=== PATIENT | female | born 1950 | race Caucasian/White ===

== ENCOUNTER → 2021-02-04 09:30 | Outpatient (BNVA) | payer MEDICARE, SELFPAY | PROVIDERS: Visit Provider Family Medicine | DX: G25.81 Restless legs syndrome (principal); J44.9 Chronic obstructive pulmonary disease, unspecified; I10 Essential (primary) hypertension; E16.2 Hypoglycemia, unspecified; R45.0 Nervousness; Z13.1 Encounter for screening for diabetes mellitus; Z83.3 Family history of diabetes mellitus; Z98.84 Bariatric surgery status; E78.5 Hyperlipidemia, unspecified; E03.9 Hypothyroidism, unspecified; K21.9 Gastro-esophageal reflux disease without esophagitis; F32.9 Major depressive disorder, single episode, unspecified; R00.0 Tachycardia, unspecified; M54.12 Radiculopathy, cervical region; Z91.09 Other allergy status, other than to drugs and biological substances; I50.9 Heart failure, unspecified | CPT/HCPCS: 80053; 80061; 83036; 84443; 85025 ==

== ENCOUNTER → 2021-04-07 09:48 | Outpatient (BNVA) | payer MEDICARE, SELFPAY | PROVIDERS: PCP Family Medicine; Referring Provider Family Medicine; Visit Provider Anesthesiology Pain Medicine | DX: G89.29 Other chronic pain (principal); M54.9 Dorsalgia, unspecified; M54.12 Radiculopathy, cervical region; M51.36 Other intervertebral disc degeneration, lumbar region; M47.816 Spondylosis without myelopathy or radiculopathy, lumbar region; M75.111 Incomplete rotator cuff tear or rupture of right shoulder, not specified as traumatic; Z79.891 Long term (current) use of opiate analgesic | CPT/HCPCS: 99204 ==

== ENCOUNTER → 2021-09-03 10:08 | Outpatient (BNVA) | payer MEDICARE, SELFPAY | PROVIDERS: PCP Family Medicine; Visit Provider Anesthesiology Pain Medicine | DX: M75.111 Incomplete rotator cuff tear or rupture of right shoulder, not specified as traumatic (principal); M75.01 Adhesive capsulitis of right shoulder; M54.12 Radiculopathy, cervical region; M51.36 Other intervertebral disc degeneration, lumbar region; M47.816 Spondylosis without myelopathy or radiculopathy, lumbar region | CPT/HCPCS: 99214 ==

== ENCOUNTER → 2022-01-11 08:54 | Outpatient (BNVA) | payer MEDICARE, MEDICAID, SELFPAY | PROVIDERS: PCP Family Medicine; Visit Provider Anesthesiology Pain Medicine | DX: M51.36 Other intervertebral disc degeneration, lumbar region (principal); M47.816 Spondylosis without myelopathy or radiculopathy, lumbar region; M54.12 Radiculopathy, cervical region; M75.111 Incomplete rotator cuff tear or rupture of right shoulder, not specified as traumatic; M75.01 Adhesive capsulitis of right shoulder | CPT/HCPCS: 99214 ==

== ENCOUNTER → 2022-01-21 12:53 | Outpatient (BNVA) | payer MEDICARE, MEDICAID, SELFPAY | PROVIDERS: PCP Student in an Organized Health Care Education/Training Program; Visit Provider Anesthesiology Pain Medicine | DX: M54.16 Radiculopathy, lumbar region (principal) | CPT/HCPCS: 64483; 64484; J1100; J3490 ==

== ENCOUNTER → 2022-02-08 09:23 | Outpatient (BNVA) | payer MEDICARE, MEDICAID, SELFPAY | PROVIDERS: PCP Student in an Organized Health Care Education/Training Program; Visit Provider Anesthesiology Pain Medicine | DX: M54.12 Radiculopathy, cervical region (principal); M51.36 Other intervertebral disc degeneration, lumbar region; M47.816 Spondylosis without myelopathy or radiculopathy, lumbar region; M75.111 Incomplete rotator cuff tear or rupture of right shoulder, not specified as traumatic; M75.00 Adhesive capsulitis of unspecified shoulder | CPT/HCPCS: 99214 ==

== ENCOUNTER → 2022-02-17 12:50 | Outpatient (BNVA) | payer MEDICARE, MEDICAID, SELFPAY | PROVIDERS: PCP Student in an Organized Health Care Education/Training Program; Visit Provider Anesthesiology Pain Medicine | DX: M54.2 Cervicalgia (principal); M25.561 Pain in right knee; M54.16 Radiculopathy, lumbar region | CPT/HCPCS: 62323; J1040; J3490 ==

== ENCOUNTER → 2022-03-03 11:21 | Outpatient (BNVA) | payer MEDICARE, MEDICAID, SELFPAY | PROVIDERS: PCP Student in an Organized Health Care Education/Training Program; Visit Provider Anesthesiology Pain Medicine | DX: M51.36 Other intervertebral disc degeneration, lumbar region (principal); M47.816 Spondylosis without myelopathy or radiculopathy, lumbar region; M54.12 Radiculopathy, cervical region; M75.00 Adhesive capsulitis of unspecified shoulder; M75.111 Incomplete rotator cuff tear or rupture of right shoulder, not specified as traumatic | CPT/HCPCS: 99212; 99213 ==

== ENCOUNTER → 2022-04-21 13:44 | Outpatient (BNVA) | payer MEDICARE, MEDICAID, SELFPAY | PROVIDERS: PCP Student in an Organized Health Care Education/Training Program; Visit Provider Otolaryngology | DX: H70.12 Chronic mastoiditis, left ear (principal); H95.192 Other disorders following mastoidectomy, left ear; H74.01 Tympanosclerosis, right ear | CPT/HCPCS: 69220; 99203 ==

== ENCOUNTER → 2022-05-03 11:11 | Outpatient (BNVA) | payer MEDICARE, MEDICAID, SELFPAY | PROVIDERS: PCP Student in an Organized Health Care Education/Training Program; Referring Provider Anesthesiology Pain Medicine; Visit Provider Specialist | DX: M17.12 Unilateral primary osteoarthritis, left knee (principal); M21.062 Valgus deformity, not elsewhere classified, left knee | CPT/HCPCS: 73560; 73565; 99203 ==

== ENCOUNTER → 2022-06-09 10:38 | Outpatient (BNVA) | payer MEDICARE, MEDICAID, SELFPAY | PROVIDERS: PCP Student in an Organized Health Care Education/Training Program; Visit Provider Anesthesiology Pain Medicine | DX: M75.01 Adhesive capsulitis of right shoulder (principal); M54.12 Radiculopathy, cervical region; M51.36 Other intervertebral disc degeneration, lumbar region; M75.111 Incomplete rotator cuff tear or rupture of right shoulder, not specified as traumatic; M47.816 Spondylosis without myelopathy or radiculopathy, lumbar region | CPT/HCPCS: 72040; 99214 ==

== ENCOUNTER → 2022-06-15 09:34 | Outpatient (BNVA) | payer MEDICARE, MEDICAID, SELFPAY | PROVIDERS: PCP Student in an Organized Health Care Education/Training Program; Visit Provider Anesthesiology Pain Medicine | DX: M79.18 Myalgia, other site (principal); M54.12 Radiculopathy, cervical region; M51.36 Other intervertebral disc degeneration, lumbar region; M47.816 Spondylosis without myelopathy or radiculopathy, lumbar region; M75.111 Incomplete rotator cuff tear or rupture of right shoulder, not specified as traumatic; M75.00 Adhesive capsulitis of unspecified shoulder | CPT/HCPCS: 20553; 99214 ==

== ENCOUNTER 2022-06-29 07:46 | Outpatient (CLI) | payer MEDICARE, MEDICAID, SELFPAY ==
--- NOTE | 2022-06-29 08:00 | MR_ITS ---
WS: [id number] MRI CERVICAL SPINE NONCONTRAST HISTORY: M54.12 - Radiculopathy, cervical region COMPARISON: No similar studies. Technique: Multiplanar, multisequence noncontrast imaging of the cervical spine. Straightening and slight reversal normal cervical lordosis. No acute or chronic fracture. Disc spaces are moderately narrowed throughout the cervical spine with hypertrophic osteophytes and f acet arthritis at multiple levels. There is a small amount of marrow edema in the superior and inferi or articular facets of C7. Craniocervical junction, C1 and C2 relationship, odontoid process and soft tissues are normal. Empty sella turcica. C2-C3: Normal. C3-C4: Mild osteophytic ridging. Osteophytes encroach into the RIGHT foramen causing mild foraminal n arrowing. No high-grade stenosis. Mild facet arthritis. C4-C5: Diffuse annular disc bulging with small disc osteophyte complexes and the neural foramina. The re is a central disc contacting the ventral cord but not displacing the cord. Mild central with moder ate bilateral foraminal stenosis and mild facet arthritis. C5-C6: Diffuse moderate osteophytic ridging with encroachment upon the ventral thecal sac. Encroachme nt centrally and into the neural foramina predominantly due to osteophytes. Mild central with moderat e bilateral foraminal stenosis. Mild facet arthritis. C6-C7: Diffuse annular disc bulging. Disc osteophyte disease with encroachment upon the ventral theca l sac and foramina. Mild central and bilateral foraminal stenosis. Mild bilateral facet arthritis. Th ere is greater edema and increased T2 signal on the LEFT surrounding the facet joint. C7-T1: Normal. Sagittal sequence at T1-2 and T2-3 demonstrates small RIGHT foraminal disc protrusions. MR/MR cervical spin wo con* [id number] IMPRESSION: 1. Multilevel moderate spondylitic changes throughout the cervical spine. Disc and osteophyte disease and facet arthritis. 2. Mild RIGHT foraminal narrowing due to osteophyte at C3-4. 3. Mild central with moderate bilateral foraminal stenosis and facet arthritis at C4-5 and C5-6 due to disc and osteophyte disease. 4. Mild central and bilateral foraminal stenosis at C6-7. 5. Edema involving the articular facets of C7, greatest on the LEFT. Additiona l edema surrounding the LEFT facet joint and interspinous muscles. May represen t some instability or be secondary to facet joint arthritis or synovitis.
== END 2022-06-29 07:47 | disposition home or self-care (01) ==
PROVIDERS: PCP Student in an Organized Health Care Education/Training Program; Visit Provider Anesthesiology Pain Medicine
DX: M54.12 Radiculopathy, cervical region (principal); M47.812 Spondylosis without myelopathy or radiculopathy, cervical region; M25.78 Osteophyte, vertebrae
CPT/HCPCS: 72141

== ENCOUNTER → 2022-07-26 09:50 | Outpatient (BNVA) | payer MEDICARE, MEDICAID, SELFPAY | PROVIDERS: PCP Student in an Organized Health Care Education/Training Program; Visit Provider Anesthesiology Pain Medicine | DX: G89.29 Other chronic pain (principal); M54.12 Radiculopathy, cervical region; M51.36 Other intervertebral disc degeneration, lumbar region; M47.816 Spondylosis without myelopathy or radiculopathy, lumbar region; M75.111 Incomplete rotator cuff tear or rupture of right shoulder, not specified as traumatic; M75.01 Adhesive capsulitis of right shoulder; I50.9 Heart failure, unspecified | CPT/HCPCS: 99214; 99215 ==

== ENCOUNTER → 2022-08-16 12:32 | Outpatient (BNVA) | payer MEDICARE, MEDICAID, SELFPAY | PROVIDERS: PCP Student in an Organized Health Care Education/Training Program; Visit Provider Anesthesiology Pain Medicine | DX: G89.29 Other chronic pain (principal); M54.12 Radiculopathy, cervical region; M47.812 Spondylosis without myelopathy or radiculopathy, cervical region | CPT/HCPCS: 64490; 64491; 64492 ==

== ENCOUNTER → 2022-08-30 09:01 | Outpatient (BNVA) | payer MEDICARE, MEDICAID, SELFPAY | PROVIDERS: PCP Student in an Organized Health Care Education/Training Program; Visit Provider Anesthesiology Pain Medicine | DX: G89.29 Other chronic pain (principal); M54.12 Radiculopathy, cervical region; M51.36 Other intervertebral disc degeneration, lumbar region; M47.816 Spondylosis without myelopathy or radiculopathy, lumbar region; M75.111 Incomplete rotator cuff tear or rupture of right shoulder, not specified as traumatic; M75.00 Adhesive capsulitis of unspecified shoulder; R07.9 Chest pain, unspecified; I50.9 Heart failure, unspecified | CPT/HCPCS: 99214 ==

== ENCOUNTER → 2022-10-06 09:43 | Outpatient (BNVA) | payer MEDICARE, MEDICAID, SELFPAY | PROVIDERS: PCP Registered Nurse; Visit Provider Otolaryngology | DX: H95.192 Other disorders following mastoidectomy, left ear (principal); K21.9 Gastro-esophageal reflux disease without esophagitis; R07.9 Chest pain, unspecified; R00.0 Tachycardia, unspecified; I10 Essential (primary) hypertension; E78.2 Mixed hyperlipidemia; E03.9 Hypothyroidism, unspecified | CPT/HCPCS: 69220; 99204; 99213 ==

== ENCOUNTER 2022-11-05 12:50 | Outpatient (CLI) | payer MEDICARE, MEDICAID, SELFPAY ==
--- NOTE | 2022-11-05 13:00 | USCV_ITS ---
Selena Salgado Age: 72 Gender: F : 1950 Exam Date: 11/05/2022 14:09 Ordering Phys: Candi Avina MD ([email or web address]) Technologist: RICK [place] [facility] [place]: CHEST PAIN, SHORTNESS OF BREATH BP: 116 / 70 HR: 70 Rhythm: Sinus Technical Quality: Adequate MEASUREMENTS (Male / Female) Normal Values 2D ECHO LVOT Diameter 2.0 cm LV Ejection Fraction MOD 2C 66.1 % LV Ejection Fraction 2C AL 69.3 % LA Diameter 4.0 cm LA Width 2.4 cm LA Height 5.3 cm RA Width 3.3 cm RA Height 4.7 cm Aorta at Sinotubular Diameter 2.2 cm IVC Diameter 1.7 cm M-MODE Aortic Annulus Diameter 2.7 cm LA Ao Ratio MM 1.4 MV E Point Septal Separation 0.3 cm DOPPLER AV Peak Velocity 130.0 cm/s LVOT Peak Velocity 83.0 cm/s AV Area Cont Eq vti 2.1 cm squared AV Area Cont Eq pk 2.0 cm squared MV Peak Velocity 110.0 cm/s MV Area PHT 5.0 cm squared Mitral E to A Ratio 1.3 MV E' Velocity 54.5 cm/s Mitral E to MV E' Ratio 12.4 Mitral E to LV E' Lateral Ratio 14.8 Mitral E to LV E' Septal Ratio 10.9 TR Peak Velocity 255.0 cm/s TR Peak Gradient 26.0 mmHg TR Mean Velocity 217.4 cm/s TR Mean Gradient 19.9 mmHg TR Velocity Time Integral 107.8 cm TV Peak E Velocity 55.0 cm/s Right Atrial Pressure 3.0 mmHg Pulmonary Artery Systolic Pressu 29.0 mmHg PV Peak Velocity 92.0 cm/s RV Acceleration Time 0.1 s RV Ejection Time 0.4 s RV AcT/ET 0.4 FINDINGS Left Ventricle Normal left ventricular size, systolic function and wall thickness, with no regional wall motion abnormalities. Left ventricular ejection fraction is estimated at 65%. Normal diastolic function. Right Ventricle Normal right ventricular size and systolic function. Right ventricular systolic pressure 29 mmHg. Right Atrium Normal right atrial size. Left Atrium Normal left atrial size. Mitral Valve Structurally normal mitral valve. No mitral valve stenosis. Trace mitral valve regurgitation. Aortic Valve Structurally normal trileaflet aortic valve. No aortic valve stenosis. No aortic valve regurgitation. Tricuspid Valve Structurally normal tricuspid valve. No tricuspid valve stenosis. Trace tricuspid valve regurgitation. Pulmonic Valve Pulmonic valve not well visualized. Pericardium No pericardial effusion. Aorta Normal size aortic root and proximal ascending aorta. IVC Normal IVC dimension with >50% respiratory change of the inferior vena cava. CONCLUSIONS 1. Normal left ventricular size, systolic function and wall thickness, with no regional wall motion abnormalities. Left ventricular ejection fraction is estimated at 65%. Normal diastolic function. 2. No significant valvular abnormality. 3. No prior similar studies to compare. Candi Avina MD (Electronically Signed) Final Date: 16 November 2022 08:33 S
== END 2022-11-05 12:51 | disposition home or self-care (01) ==
LOC: RAD 12:54
PROVIDERS: PCP Registered Nurse; Visit Provider Internal Medicine Cardiovascular Disease
DX: R06.02 Shortness of breath (principal); I50.9 Heart failure, unspecified; R07.9 Chest pain, unspecified
CPT/HCPCS: 93306

== ENCOUNTER → 2022-11-08 09:28 | Outpatient (BNVA) | payer MEDICARE, MEDICAID, SELFPAY | PROVIDERS: PCP Registered Nurse; Visit Provider Specialist | DX: M17.12 Unilateral primary osteoarthritis, left knee (principal); M23.301 Other meniscus derangements, unspecified lateral meniscus, left knee | CPT/HCPCS: 73560; 73565; 99213 ==

== ENCOUNTER 2022-11-24 07:44 | Outpatient (CLI) | payer MEDICARE, MEDICAID, SELFPAY ==
--- NOTE | 2022-11-24 | ECG_ITS ---
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 Interpretive Statements NAME OF STUDY: LEXISCAN SESTAMIBI STRESS TEST INDICATION: Chest Pain, Shortness of breath PROCEDURE: At the baseline, the blood pressure was 155/82 mm Hg with a heart rate of 60 bpm. The electrocardiogram showed sinus rhythm, normal axis. Normal ST and T's. ??? The Lexiscan was infused over a period of 20 seconds. A total of 0.4 milligrams of Lexiscan was infused. The stress phase was continued for a total of 5 minutes. Heart rate at the end of the stress phase was 78 bpm with a blood pressure of 157/83 mm Hg. The EKG at the peak infusion revealed no significant ST-T wave changes. ??? Sestamibi was injected 20 seconds after the Lexiscan infusion. ??? Blood pressure at the end of the recovery phase was 157/82 mm Hg with a heart rate of 74 beats per minute. ??? CONCLUSION: 1. No significant EKG changes with the LexiScan infusion. 2. No LexiScan induced chest pain or cardiac arrhythmia. 3. Normal blood pressure and heart rate response. 4. Sestamibi/sestamibi perfusion scan pending; see separate report. Electronically Signed On 11-24-2022 15:40:04 SIGN MAINTENANCE by Candi Avina M.D. [id number]
[2022-11-24 08:03] VITALS: BMI 47.2
--- NOTE | 2022-11-24 08:12 | NMCV_ITS ---
NM la perf SPECT r/s* [id number] Selean Salgado Age: 72 Gender: F : 1950 Exam Date: 11/24/2022 08:12 Ordering Phys: Candi Avina MD ([email or web address]) Technologist: ESTELA Beckwith Exam Location: [facility] Indications: CHEST PAIN STRESS TEST Please see separate stress test report in [facility] for full findings IMAGE PROTOCOL Rest/Stress 1 Lexiscan Day Radiopharmaceutical Dose (mCi) Administration Site Administered by Rest: Tc-99m 10.9 IV ESTELA Slater Sestamibi Stress:Tc-99m 32.6 IV ESTELA Slater Sestamibi Rest: 24-Nov-2022 60 Discovery 630 Stress: 24-Nov-2022 30 Discovery 630 0.4mg Lexiscan. Images obtained in supine and prone position. SPECT RESULTS Technical Quality: Excellent Raw Data Analysis: Normal Image Corrections: No attenuation or motion correction applied Summed Stress Score: 7 Summed Rest Score: 3 Summed Difference Score: 4 PERFUSION FINDINGS Small sized perfusion abnormality of mild severity of apical septal, apical anterior, apical inferior and apical pressley on supine stress images with improved tracer uptake in prone stress images. This is suggestive of attenuation artifact. FUNCTIONAL RESULTS (calculated via Gated SPECT) Stress Image LV EF (%): 82 Stress EDV (mL):71 TID: 1.03 Stress ESV (mL):13 FUNCTIONAL FINDINGS: The left ventricle is normal in size. Transient Ischemia Dilatation of 1. The left ventricular ejection fraction is normal with a value of 82%. There is hyperdynamic left ventricular global systolic function. There is hyperdynamic left ventricular wall thickening. IMPRESSIONS 1. Myocardial perfusion imaging is normal. Attenuation artifact noted in apical anterior, septal and apical pressley. 2. There is hyperdynamic left ventricular global systolic function with no regional wall motion abnormality, LVEF=82%. 3. EKG portion of the study will be reported separately. 4. No coronary ischemia based on this study. Candi Avina MD (Electronically Signed) Final Date: 24 November 2022 22:32 S
[2022-11-24] MEDS: regadenoson 0.4 Mg/5 ml Syringe IVP (09:30)
[2022-11-24 09:43] VITALS: BP 157/82; PULSE 74
== END 2022-11-24 07:45 | disposition home or self-care (01) ==
LOC: CDL 07:47
PROVIDERS: PCP Registered Nurse; Visit Provider Internal Medicine Cardiovascular Disease
DX: R07.9 Chest pain, unspecified (principal)
CPT/HCPCS: 36415; 78452; 93017; 96374; A9500; J2785

== ENCOUNTER → 2022-11-29 11:09 | Outpatient (BNVA) | payer MEDICARE, MEDICAID, SELFPAY | PROVIDERS: PCP Registered Nurse; Visit Provider Anesthesiology Pain Medicine | DX: G89.29 Other chronic pain (principal); M54.12 Radiculopathy, cervical region; M51.36 Other intervertebral disc degeneration, lumbar region; M47.816 Spondylosis without myelopathy or radiculopathy, lumbar region; I11.0 Hypertensive heart disease with heart failure; I50.9 Heart failure, unspecified; M75.111 Incomplete rotator cuff tear or rupture of right shoulder, not specified as traumatic; M75.00 Adhesive capsulitis of unspecified shoulder; R07.9 Chest pain, unspecified | CPT/HCPCS: 72100; 99214 ==

== ENCOUNTER → 2022-12-15 09:28 | Outpatient (BNVA) | payer MEDICARE, MEDICAID, SELFPAY | PROVIDERS: PCP Registered Nurse; Visit Provider Anesthesiology Pain Medicine | DX: G89.29 Other chronic pain (principal); M54.12 Radiculopathy, cervical region; M51.36 Other intervertebral disc degeneration, lumbar region; M47.816 Spondylosis without myelopathy or radiculopathy, lumbar region; M75.111 Incomplete rotator cuff tear or rupture of right shoulder, not specified as traumatic; M75.01 Adhesive capsulitis of right shoulder | CPT/HCPCS: 99214 ==

== ENCOUNTER → 2023-01-07 10:05 | Outpatient (BNVA) | payer MEDICARE, MEDICAID, SELFPAY | PROVIDERS: PCP Registered Nurse; Visit Provider Nurse Practitioner Family | DX: I11.0 Hypertensive heart disease with heart failure (principal); I50.9 Heart failure, unspecified; I87.2 Venous insufficiency (chronic) (peripheral) | CPT/HCPCS: 99214 ==

== ENCOUNTER 2023-02-04 12:50 | Outpatient (CLI) | payer MEDICARE, MEDICAID, SELFPAY ==
--- NOTE | 2023-02-04 12:45 | USCV_ITS ---
Selena Salgado Age: 72 Gender: F : 1950 Exam Date: 02/04/2023 12:59 Ordering Phys: Cecy Oconnor Technologist: CT [place]am [place] [facility] [place] Indication: HISTORY: SWELLING WITHOUT CHF PROCEDURES: FINDINGS: The veins were found to be easily compressible with spontaneous blood flow. Non pulsatile flow pattern. No significant venous reflux CONCLUSIONS No evidence of DVT in the above-mentioned identifiable veins. No significant venous reflux were noted either in the superficial or in the deep veins Normal caliber superficial veins bilaterally The above-knee segments of the greater saphenous veins were greater than 1 cm deep from the surface, bilaterally Dr Angelo Humphreys MD [facility] (Electronically Signed) Final Date: 08 February 2023 08:00 S
== END 2023-02-04 12:51 | disposition home or self-care (01) ==
LOC: RAD 12:52
PROVIDERS: PCP Registered Nurse; Visit Provider Nurse Practitioner Family
DX: I87.2 Venous insufficiency (chronic) (peripheral) (principal); R60.0 Localized edema; H95.199 Other disorders following mastoidectomy, unspecified ear
CPT/HCPCS: 36415; 80048; 83880; 93970; 99212

== ENCOUNTER → 2023-02-14 09:45 | Outpatient (BNVA) | payer MEDICARE, MEDICAID, SELFPAY | PROVIDERS: PCP Registered Nurse; Visit Provider Anesthesiology Pain Medicine | DX: G89.29 Other chronic pain (principal); M54.12 Radiculopathy, cervical region; M51.36 Other intervertebral disc degeneration, lumbar region; M75.111 Incomplete rotator cuff tear or rupture of right shoulder, not specified as traumatic; M47.816 Spondylosis without myelopathy or radiculopathy, lumbar region; M75.01 Adhesive capsulitis of right shoulder; R07.9 Chest pain, unspecified; I50.9 Heart failure, unspecified | CPT/HCPCS: 99213 ==

== ENCOUNTER → 2023-03-15 14:37 | Outpatient (BNVA) | payer MEDICARE, MEDICAID, SELFPAY | PROVIDERS: PCP Registered Nurse; Visit Provider Internal Medicine | DX: M17.12 Unilateral primary osteoarthritis, left knee (principal); E03.9 Hypothyroidism, unspecified; M45.0 Ankylosing spondylitis of multiple sites in spine; R76.8 Other specified abnormal immunological findings in serum; M25.50 Pain in unspecified joint | CPT/HCPCS: 36415; 73120; 80053; 81003; 83516; 84443; 85025; 85651; 86160; 86162; 86200; 86235; 86255; 86376; 86704; 86803; 86812; 87340; 99204 ==

== ENCOUNTER → 2023-04-08 09:43 | Outpatient (BNVA) | payer MEDICARE, MEDICAID, SELFPAY | PROVIDERS: PCP Registered Nurse; Visit Provider Internal Medicine Cardiovascular Disease | DX: I11.0 Hypertensive heart disease with heart failure (principal); I50.9 Heart failure, unspecified | CPT/HCPCS: 99214 ==

== ENCOUNTER → 2023-05-16 08:41 | Outpatient (BNVA) | payer MEDICARE, MEDICAID, SELFPAY | PROVIDERS: PCP Registered Nurse; Visit Provider Anesthesiology Pain Medicine | DX: G89.29 Other chronic pain (principal); M54.12 Radiculopathy, cervical region; M51.36 Other intervertebral disc degeneration, lumbar region; M47.816 Spondylosis without myelopathy or radiculopathy, lumbar region; M75.111 Incomplete rotator cuff tear or rupture of right shoulder, not specified as traumatic; M75.01 Adhesive capsulitis of right shoulder | CPT/HCPCS: 99214 ==

== ENCOUNTER → 2023-06-06 10:33 | Outpatient (BNVA) | payer MEDICARE, MEDICAID, SELFPAY | PROVIDERS: PCP Registered Nurse; Visit Provider Otolaryngology | DX: H95.192 Other disorders following mastoidectomy, left ear (principal); R76.8 Other specified abnormal immunological findings in serum; E03.9 Hypothyroidism, unspecified; M25.50 Pain in unspecified joint; Z79.899 Other long term (current) drug therapy | CPT/HCPCS: 69220; 99212; 99214 ==

== ENCOUNTER → 2023-08-16 08:46 | Outpatient (BNVA) | payer MEDICARE, MEDICAID, SELFPAY | PROVIDERS: PCP Registered Nurse; Visit Provider Anesthesiology Pain Medicine | DX: G89.29 Other chronic pain; M54.12 Radiculopathy, cervical region; M51.36 Other intervertebral disc degeneration, lumbar region; M75.111 Incomplete rotator cuff tear or rupture of right shoulder, not specified as traumatic; M47.816 Spondylosis without myelopathy or radiculopathy, lumbar region; M75.01 Adhesive capsulitis of right shoulder; I50.9 Heart failure, unspecified | CPT/HCPCS: 99214 ==

== ENCOUNTER → 2023-09-05 14:24 | Outpatient (BNVA) | payer MEDICARE, MEDICAID, SELFPAY | PROVIDERS: PCP Registered Nurse; Visit Provider Anesthesiology Pain Medicine | DX: M54.16 Radiculopathy, lumbar region (principal) | CPT/HCPCS: 64483; 64484 ==

== ENCOUNTER → 2023-09-26 09:41 | Outpatient (BNVA) | payer MEDICARE, MEDICAID, SELFPAY | PROVIDERS: PCP Registered Nurse; Visit Provider Anesthesiology Pain Medicine | DX: E03.9 Hypothyroidism, unspecified (principal); G89.29 Other chronic pain; M54.12 Radiculopathy, cervical region; M51.36 Other intervertebral disc degeneration, lumbar region; M75.111 Incomplete rotator cuff tear or rupture of right shoulder, not specified as traumatic; M47.816 Spondylosis without myelopathy or radiculopathy, lumbar region; Z79.890 Hormone replacement therapy | CPT/HCPCS: 99214 ==

== ENCOUNTER → 2023-09-30 10:22 | Outpatient (BNVA) | payer MEDICARE, MEDICAID, SELFPAY | PROVIDERS: PCP Registered Nurse; Visit Provider Internal Medicine Cardiovascular Disease | DX: R07.9 Chest pain, unspecified (principal); R00.0 Tachycardia, unspecified; I10 Essential (primary) hypertension; E78.2 Mixed hyperlipidemia; E03.9 Hypothyroidism, unspecified; K21.9 Gastro-esophageal reflux disease without esophagitis | CPT/HCPCS: 99214 ==

== ENCOUNTER → 2023-10-05 13:20 | Outpatient (BNVA) | payer MEDICARE, MEDICAID, SELFPAY | PROVIDERS: PCP Registered Nurse; Visit Provider Internal Medicine | DX: M51.36 Other intervertebral disc degeneration, lumbar region (principal); R76.8 Other specified abnormal immunological findings in serum; E03.9 Hypothyroidism, unspecified; M25.50 Pain in unspecified joint | CPT/HCPCS: 99214 ==

== ENCOUNTER 2023-10-11 15:49 | Outpatient (CLI) | payer MEDICARE, MEDICAID, SELFPAY ==
--- NOTE | 2023-10-11 16:45 | MR_ITS ---
WS: [email or web address] MRI LUMBAR SPINE NONCONTRAST HISTORY: M48.062 - Spinal stenosis, lumbar region with neurogenic ... COMPARISON: None available. TECHNIQUE: Sagittal and axial multisequence imaging is submitted. Mild increase in the lumbar lordosis. L3 and L4 anterolisthesis. L4 anterolisthesis most significant at 2.8 mm. Disc bases are otherwise well maintained with only mild desiccation. No marrow edema or fracture. Conus terminates normally at L1-2 disc level. L1-L2: Mild bilateral foraminal narrowing. Mild facet arthritis. L2-L3: Mild annular disc bulging, osteophytic ridging and facet disease. Very mild central and bilate ral foraminal narrowing. L3-L4: Diffuse annular disc bulging with moderate ligamentum flavum and facet arthritis. Mild central , bilateral subarticular recess and foraminal stenosis. Slightly greater stenosis RIGHT foramen. L4-L5: Diffuse annular disc bulging with marked ligamentum flavum and facet arthritis encroaching upo n the central canal. Mild to moderate central, bilateral subarticular recess and mild foraminal steno sis. L5-S1: Mild facet arthritis. No stenosis. Paravertebral soft tissues are negative. IMPRESSION: 1. Slight anterolisthesis L3 and L4. L4 anterolisthesis is greatest at 2.8 mm. 2. Facet joint arthritis and ligamentum flavum from L1-2 through L5-S1. Most significant at L3-4 and L4-5. 3. L3-4: Mild central, bilateral subarticular recess and foraminal stenosis. 4. L4-5: Mild to moderate central with bilateral subarticular recess and mild foraminal stenosis.
== END 2023-10-11 15:50 | disposition home or self-care (01) ==
LOC: RAD 15:50
PROVIDERS: PCP Registered Nurse; Visit Provider Anesthesiology Pain Medicine
DX: M48.062 Spinal stenosis, lumbar region with neurogenic claudication (principal)
CPT/HCPCS: 72148

== ENCOUNTER → 2023-10-27 10:06 | Outpatient (BNVA) | payer MEDICARE, MEDICAID, SELFPAY | PROVIDERS: PCP Registered Nurse; Visit Provider Anesthesiology Pain Medicine | DX: G89.29 Other chronic pain; M54.12 Radiculopathy, cervical region; M51.36 Other intervertebral disc degeneration, lumbar region; M75.111 Incomplete rotator cuff tear or rupture of right shoulder, not specified as traumatic; M47.816 Spondylosis without myelopathy or radiculopathy, lumbar region; R07.9 Chest pain, unspecified; I50.9 Heart failure, unspecified; M75.01 Adhesive capsulitis of right shoulder | CPT/HCPCS: 99214 ==

== ENCOUNTER → 2023-11-23 14:00 | Outpatient (BNVA) | payer MEDICARE, MEDICAID, SELFPAY | PROVIDERS: PCP Registered Nurse; Visit Provider Anesthesiology Pain Medicine | DX: M47.816 Spondylosis without myelopathy or radiculopathy, lumbar region (principal) | CPT/HCPCS: 64493; 64494; 64495; J3490 ==

== ENCOUNTER → 2023-12-02 09:07 | Outpatient (BNVA) | payer MEDICARE, MEDICAID, SELFPAY | PROVIDERS: PCP Registered Nurse; Visit Provider Otolaryngology | DX: H95.192 Other disorders following mastoidectomy, left ear | CPT/HCPCS: 69210; 69220; 99212 ==

== ENCOUNTER → 2023-12-06 10:53 | Outpatient (BNVA) | payer MEDICARE, MEDICAID, SELFPAY | PROVIDERS: PCP Registered Nurse; Visit Provider Anesthesiology Pain Medicine | DX: G89.29 Other chronic pain; M54.12 Radiculopathy, cervical region; M51.36 Other intervertebral disc degeneration, lumbar region; M75.111 Incomplete rotator cuff tear or rupture of right shoulder, not specified as traumatic; M47.816 Spondylosis without myelopathy or radiculopathy, lumbar region; M48.02 Spinal stenosis, cervical region; M75.01 Adhesive capsulitis of right shoulder | CPT/HCPCS: 99214 ==

== ENCOUNTER → 2023-12-19 13:16 | Outpatient (BNVA) | payer MEDICARE, MEDICAID, SELFPAY | PROVIDERS: PCP Family Medicine; Visit Provider Anesthesiology Pain Medicine | DX: M54.16 Radiculopathy, lumbar region (principal) | CPT/HCPCS: 62323; J1040 ==

== ENCOUNTER → 2024-01-11 09:41 | Outpatient (BNVA) | payer MEDICARE, MEDICAID, SELFPAY | PROVIDERS: PCP Family Medicine; Visit Provider Family Medicine | DX: M17.12 Unilateral primary osteoarthritis, left knee (principal); I10 Essential (primary) hypertension; R00.0 Tachycardia, unspecified; F32.9 Major depressive disorder, single episode, unspecified; G47.00 Insomnia, unspecified; G25.81 Restless legs syndrome; I50.9 Heart failure, unspecified; E03.9 Hypothyroidism, unspecified; K21.9 Gastro-esophageal reflux disease without esophagitis; E78.2 Mixed hyperlipidemia; I50.22 Chronic systolic (congestive) heart failure; R76.8 Other specified abnormal immunological findings in serum; F51.01 Primary insomnia; Z12.31 Encounter for screening mammogram for malignant neoplasm of breast; Z76.89 Persons encountering health services in other specified circumstances | CPT/HCPCS: 80053; 80061; 84439; 84443; 84481; 85025 ==

== ENCOUNTER → 2024-01-16 09:58 | Outpatient (BNVA) | payer MEDICARE, MEDICAID, SELFPAY | PROVIDERS: PCP Family Medicine; Visit Provider Anesthesiology Pain Medicine | DX: M54.12 Radiculopathy, cervical region (principal); G89.29 Other chronic pain; M51.36 Other intervertebral disc degeneration, lumbar region; M75.111 Incomplete rotator cuff tear or rupture of right shoulder, not specified as traumatic; M47.816 Spondylosis without myelopathy or radiculopathy, lumbar region; M75.01 Adhesive capsulitis of right shoulder | CPT/HCPCS: 99214 ==

== ENCOUNTER 2024-01-26 10:55 | Outpatient (CLI) | payer MEDICARE, MEDICAID, SELFPAY ==
--- NOTE | 2024-01-26 11:00 | MM_ITS ---
WS: [email or web address] BILATERAL SCREENING DIGITAL TOMOSYNTHESIS MAMMOGRAM WITH CAD HISTORY: Z12.39 - Encounter for other screening for malignant neop... COMPARISON: 11/12/2022, 10/20/2017 Bilateral CC and MLO views with tomosynthesis and synthetic mammography submitted. Computer aided det ection analyzed. Breast composition: There are scattered areas of fibroglandular density. No suspicious masses, microc alcifications or architectural distortion. Benign calcifications in each breast. IMPRESSION: MM/[place] [id number] BI-RADS: 2-Benign FOLLOW UP: 1 Year Follow-up
== END 2024-01-26 10:56 | disposition home or self-care (01) ==
LOC: MOBLMAM 11:02
PROVIDERS: PCP Family Medicine; Visit Provider Family Medicine
DX: Z12.31 Encounter for screening mammogram for malignant neoplasm of breast (principal)
CPT/HCPCS: 77063; 77067

== ENCOUNTER 2024-01-31 06:00 | Outpatient (RCR) | payer MEDICARE, MEDICAID, SELFPAY | END 2024-02-21 23:59 | disposition home or self-care (01) | LOC: MPT 06:00 | PROVIDERS: PCP Family Medicine; Visit Provider Anesthesiology Pain Medicine | DX: M54.50 Low back pain, unspecified (principal); G89.29 Other chronic pain | CPT/HCPCS: 97110; 97140; 97162; G0283 ==

== ENCOUNTER → 2024-02-16 09:45 | Outpatient (BNVA) | payer MEDICARE, MEDICAID, SELFPAY | PROVIDERS: PCP Family Medicine; Visit Provider Anesthesiology Pain Medicine | DX: G89.29 Other chronic pain; M54.12 Radiculopathy, cervical region; M51.36 Other intervertebral disc degeneration, lumbar region; M75.111 Incomplete rotator cuff tear or rupture of right shoulder, not specified as traumatic; M47.816 Spondylosis without myelopathy or radiculopathy, lumbar region; M75.00 Adhesive capsulitis of unspecified shoulder; R07.9 Chest pain, unspecified; I50.22 Chronic systolic (congestive) heart failure; M75.01 Adhesive capsulitis of right shoulder | CPT/HCPCS: 99214 ==

== ENCOUNTER → 2024-02-21 13:31 | Outpatient (BNVA) | payer MEDICARE, MEDICAID, SELFPAY | PROVIDERS: PCP Family Medicine; Visit Provider Orthopaedic Surgery | DX: M47.22 Other spondylosis with radiculopathy, cervical region (principal); M54.9 Dorsalgia, unspecified; M54.2 Cervicalgia | CPT/HCPCS: 72050; 72110; 99204 ==

== ENCOUNTER 2024-02-22 06:00 | Outpatient (RCR) | payer MEDICARE, SELFPAY | END 2024-03-23 23:59 | disposition home or self-care (01) | LOC: MPT 06:00 | PROVIDERS: PCP Family Medicine; Visit Provider Anesthesiology Pain Medicine | DX: M54.50 Low back pain, unspecified (principal); G89.29 Other chronic pain | CPT/HCPCS: 97110; 97140; G0283 ==

== ENCOUNTER → 2024-03-20 10:03 | Outpatient (BNVA) | payer MEDICARE, MEDICAID, SELFPAY | PROVIDERS: PCP Family Medicine; Referring Provider Family Medicine; Visit Provider Student in an Organized Health Care Education/Training Program | DX: M25.561 Pain in right knee; Z96.652 Presence of left artificial knee joint | CPT/HCPCS: 73560; 73565; 99214 ==

== ENCOUNTER → 2024-03-28 08:38 | Outpatient (BNVA) | payer MEDICARE, MEDICAID, SELFPAY | PROVIDERS: PCP Family Medicine Adult Medicine; Visit Provider Anesthesiology Pain Medicine | DX: G89.29 Other chronic pain; M54.12 Radiculopathy, cervical region; M51.36 Other intervertebral disc degeneration, lumbar region; M47.816 Spondylosis without myelopathy or radiculopathy, lumbar region; I50.22 Chronic systolic (congestive) heart failure; M48.02 Spinal stenosis, cervical region | CPT/HCPCS: 99214 ==

== ENCOUNTER 2024-04-04 15:48 | Outpatient (CLI) | payer MEDICARE, MEDICAID, SELFPAY ==
--- NOTE | 2024-04-04 16:00 | MR_ITS ---
WS: [id number] MRI CERVICAL SPINE NONCONTRAST HISTORY: neck pain COMPARISON: 06/29/2022 Technique: Multiplanar, multisequence noncontrast imaging of the cervical spine. Straightening and mild reversal of the normal cervical lordosis. Mild progression since prior study. Moderate degenerative disc disease with bulging disks and osteophytes at multiple levels. Signal within the cervical cord is normal. Visualized posterior fossa is unremarkable. Craniocervical junction, C1 and C2 relationship, odontoid process and soft tissues are normal. C2-C3: Normal. C3-C4: Mild osteophytic ridging encroaching upon the foramina RIGHT greater than LEFT. Bilateral face t arthritis. Mild bilateral foraminal stenosis, unchanged. C4-C5: Diffuse annular disc bulging with small osteophyte and disc complexes. Bilateral proximal fora melonie disc osteophyte complexes resulting in moderate stenosis similar to the prior study. Mild centr al stenosis. C5-C6: Mild osteophytic ridging and annular disc bulging. Very mild narrowing of the central canal wi th moderate bilateral foraminal stenosis. Similar to the prior study. Mild facet arthritis. C6-C7: Diffuse annular disc bulging with a more focal disc osteophyte complex LEFT paracentral and pr oximal foramina. Mild central and bilateral foraminal stenosis. Previously described facet joint arth ritis on the LEFT and synovitis persists but improved. C7-T1: Mild foraminal narrowing due to facet and osteophyte disease. T1-2 and T2-3: Central to RIGHT paracentral disc osteophytes. The RIGHT disc osteophyte at T1-2 is co ntacting the ventral thoracic cord. Similar to the prior study. Paraspinal soft tissue are normal. MR/MR cervical spin wo con* [id number] IMPRESSION: 1. Mild progression of degenerative cervical spondylosis since 06/29/2022. 2. C3-4: Bilateral foraminal stenosis, RIGHT greater than LEFT predominant due to osteophyte disease. 3. C4-5: Bilateral proximal foraminal disc osteophyte complexes resulting in m oderate stenosis. Mild central stenosis. 4. C5-6: Mild central and bilateral foraminal stenosis due to disc osteophyte disease. 5. C6-7: Mild central and bilateral foraminal stenosis. Slight improvement in the LEFT facet joint synovitis. 6. Small RIGHT central to paracentral disc osteophytes at T1-2 and T2-3 are un changed.
== END 2024-04-04 15:49 | disposition home or self-care (01) ==
LOC: RAD 15:49
PROVIDERS: PCP Family Medicine Adult Medicine; Visit Provider Orthopaedic Surgery
DX: M47.812 Spondylosis without myelopathy or radiculopathy, cervical region (principal); M99.61 Osseous and subluxation stenosis of intervertebral foramina of cervical region; M25.78 Osteophyte, vertebrae
CPT/HCPCS: 72141

== ENCOUNTER → 2024-04-12 12:47 | Outpatient (BNVA) | payer MEDICARE, MEDICAID, SELFPAY | PROVIDERS: PCP Family Medicine Adult Medicine; Visit Provider Orthopaedic Surgery | DX: M54.9 Dorsalgia, unspecified (principal); M47.22 Other spondylosis with radiculopathy, cervical region; M54.12 Radiculopathy, cervical region; Z09 Encounter for follow-up examination after completed treatment for conditions other than malignant neoplasm; M54.2 Cervicalgia; G89.29 Other chronic pain; M51.36 Other intervertebral disc degeneration, lumbar region; M47.816 Spondylosis without myelopathy or radiculopathy, lumbar region; I50.22 Chronic systolic (congestive) heart failure | CPT/HCPCS: 99214 ==

== ENCOUNTER 2024-04-18 12:24 | Emergency (ER) | payer MEDICARE, MEDICAID, SELFPAY ==
[2024-04-18 12:27] VITALS: BP 129/80; PULSE 63; RESP 18; TEMP 36.3; O2SAT 97
--- NOTE | 2024-04-18 12:28 | CT_ITS ---
WS: [email or web address] CT HEAD TECHNIQUE: Noncontrast CT of the head obtained from the skullbase to the vertex. CLINICAL INFORMATION: trauma COMPARISON: None. DLP: 1376.[address] scans at [facility] use at least one of these dose optimization techniques: automated e xposure control; mA and/or kV adjustment per patient size (includes targeted exams where dose is matc hed to clinical indication); or iterative reconstruction. FINDINGS: No evidence of intracranial hemorrhage or mass effect. Ventricular system and basal cisterns are acosta nt. Mild small vessel changes with mild parenchymal volume loss. No extra-axial fluid collections. No evidence of mass or mass effect. RIGHT sphenoid sinusitis. Prior partial mastoidectomy. CT/CT head wo con* [id number] IMPRESSION: 1. No evidence of intracranial hemorrhage or mass effect. 2. RIGHT sphenoid sinusitis 3. No acute intracranial findings.
--- NOTE | 2024-04-18 13:10 | ED_ITS ---
HPI - Fall General: Chief Complaint: Fall Stated Complaint: Fall, hit head, left side pain Time Seen by Provider: 04/18/24 13:08 History of Present Illness: 73-year-old female comes in today for a stumble and fall. Patient reports she stepped off a curb and missed stepped causing her to fall onto her left side. Patient reports hitting her head on the ground. Patient complains of head ache, neck pain, left shoulder pain, and left knee discomfort. Patient appears nontoxic. Patient appears no acute distress. Respirations are even. Patient does not endorse routine anticoagulant use. Review of Systems General: Reports: 10 or more systems reviewed and unremarkable except in HPI and below PFSH ED PFSH: Medical History Morbid obesity with BMI of 45.0-49.9, adult Depression Right rotator cuff tear Lupus TAMARA positive Heart palpitations Fluid retention in legs CHF (congestive heart failure) Degenerative disk disease Cervical radiculopathy at C6 Hyperlipidemia Restless leg syndrome GERD (gastroesophageal reflux disease) Hypothyroidism Benign hypertension Surgical History H/O gastric sleeve 2010 S/P knee replacement S/P tonsillectomy and adenoidectomy S/P cholecystectomy S/P cataract surgery History of left mastoidectomy Hx of section S/P appendectomy H/O tubal ligation H/O tympanostomy H/O: hysterectomy H/O rhinoplasty History of carpal tunnel surgery H/O decompression of ulnar nerve H/O gastric bypass Family History Other Cancer Diabetes Social History Smoking and tobacco/nicotine status: never used tobacco/nicotine Second hand smoke exposure: No Alcohol intake: never Substance/Drug Use: never Female Reproductive History: Spontaneous abortions: No Physical Exam Const: COMMON NORMALS: alert HENMT: COMMON NORMALS: normocephalic and TM's normal bilaterally HEAD & SCALP: normocephalic FACE & SINUS: normal facial exam TYMPANIC MEMBRANE: TM's normal bilaterally THROAT: posterior oropharynx normal Neck/C-Spine: CERVICAL SPINE: No Cervical spine tenderness and Yes Paracervical muscle tenderness Chest: COMMONS NORMALS: normal palpation of entire chest wall Resp: COMMON NORMALS: normal respiratory effort and clear to auscultation bilaterally AUSCULTATION: clear to auscultation bilaterally Cardio: COMMON NORMALS: regular rate and regular rhythm RATE: regular rate RHYTHM: regular rhythm GI: COMMON NORMALS: Soft to palpation and non-tender PALPATION: Yes Soft to palpation : COMMON NORMALS: Yes no CVA tenderness BLADDER/KIDNEY EXAM: Yes no CVA tenderness Back/Pelvis: COMMON NORMALS: no CVA tenderness and thoracic and lumbar spine normal to inspection Extremity: LEFT UPPER EXTREMITY: Yes shoulder joint (Anterior tenderness, normal range of motion) Left shoulder joint: Yes ROM LEFT LOWER EXTREMITY: Yes knee joint (Anterior tenderness, weightbearing, normal range of motion) Neuro: SENSORIUM/ORIENTATION: Yes alert Skin: COMMON NORMALS: turgor normal GENERAL SKIN EXAM: turgor normal Course Vital Signs: Vital signs: Vital Signs Temperature 97.3 F L 04/18/24 12:27 Pulse Rate 61 04/18/24 13:27 Respiratory Rate 16 04/18/24 13:27 Blood Pressure 129/80 04/18/24 12:27 Pulse Oximetry 95 04/18/24 13:27 Oxygen Delivery Me thod Room Air 04/18/24 13:27 MDM - Fall Medical Decision Making 73-year-old female comes in today for complaints of left shoulder pain, left anterior knee pain, neck discomfort, and headache. Patient reports stumbling when she was stepping off a curb falling onto her left side. Patient appears nontoxic. Patient appears no acute distress. Respirations are even lungs are clear to auscultation. Patient has tenderness of her left anterior shoulder and left anterior knee. Patient has normal range of motion of the shoulder and knee. Patient appears in mild to moderate pain. Vital signs normal. Differential diagnosis contusion, fracture, intracranial bleeding. CT scan of the head and cervical spine were negative for fracture or intracranial bleeding. X-rays of the left shoulder and left knee were unremarkable. Reviewed exam with patient with recommendations for treatment and follow-up. Patient reported understanding and agreed to plan. Lab Data Radiology Impressions Head CT 04/18/24 12:28 IMPRESSION: 1. No evidence of intracranial hemorrhage or mass effect. 2. RIGHT sphenoid sinusitis 3. No acute intracranial findings. Cervical Spine CT 04/18/24 13:10 IMPRESSION: No evidence of acute fracture or dislocation. Moderate spondylitic changes Knee X-Ray 04/18/24 13:22 IMPRESSION: 1. Intact LEFT total knee arthroplasty without complication. All radiology interpretation(s) finalized by discharge Discharge Plan Discharge Patient Disposition: Home Clinical Impression: Contusion of left shoulder or upper extremity Fall Qualifiers: Encounter type: initial encounter Qualified Code(s): W19.XXXA - Unspecified fall, initial encounter Head injury Qualifiers: Encounter type: initial encounter Qualified Code(s): S09.90XA - Unspecified injury of head, initial encounter Condition: Stable Prescriptions: No Action multivitamin Tablet 1 tab PO DAILY cholecalciferol (vitamin D3) 10 mcg (400 unit) capsule 10 mcg PO DAILY bupropion HCl 150 mg tablet sustained-release 12 hr 150 mg PO QAM Qty: 30 1RF acetaminophen [Tylenol Extra Strength] 500 mg tablet 500 mg PO Q6H PRN coenzyme Q10 [Co Q-10] 10 mg capsule 10 mg PO DAILY glucosamine HCl PO atenolol 25 mg tablet 25 mg PO DAILY 90 Days Qty: 90 2RF diclofenac sodium [Voltaren Arthritis Pain] 1 % gel 4 g topical QID Qty: 100 2RF Rx Instructions: apply to single knee, ankle, foot; for foot includes sole/toes/top of foot escitalopram oxalate 20 mg tablet 20 mg PO DAILY 90 Days Qty: 90 2RF trazodone 50 mg tablet 50 mg PO .at bedtime 90 Days Qty: 90 2RF pramipexole 0.5 mg tablet 0.5 mg PO BID 90 Days Qty: 180 2RF hydrochlorothiazide 25 mg tablet 25 mg PO DAILY 90 Days Qty: 90 2RF furosemide 20 mg tablet 20 mg PO DAILY PRN (Reason: edema) Qty: 90 2RF irbesartan 300 mg tablet 300 mg PO DAILY 90 Days Qty: 90 2RF levothyroxine 137 mcg tablet 137 mcg PO DAILY 90 Days Qty: 90 2RF omeprazole 20 mg capsule,delayed release(DR/EC) 20 mg PO DAILY PRN (Reason: reflux) 90 Days Qty: 90 2RF potassium chloride 20 mEq tablet extended release 20 meq PO DAILY PRN (Reason: with lasix) 90 Days Qty: 90 2RF loratadine [Allergy Relief (loratadine)] 10 mg tablet 10 mg PO DAILY triamcinolone acetonide 0.1 % cream 1 applic topical BID 5 Days Qty: 30 0RF cyclobenzaprine 5 mg tablet 5 mg PO TID PRN (Reason: muscle spasm) 90 Days Qty: 90 1RF Discharge Orders: Discharge ED (Routine); Ordered 04/18/24 Ordered By: Paul Ahumada Referrals: Kapil Gonzalez MD [Primary Care Provider] - Discharge Diet: Usual diet Discharge Activity: Increase activity as tolerated Patient Instructions: Musculoskeletal Pain (ED) Activity Restrictions/Additional Instructions: Activity as tolerated. Use ice or heat to the area for pain and discomfort. Use acetaminophen and/or ibuprofen as needed for further pain relief. Follow-up with primary care as needed. Return to ED for new concerns. Coding Level of Care Code ED Linux [employer] System Administrator for Hossein Doe
--- NOTE | 2024-04-18 13:10 | CT_ITS ---
WS: [email or web address] CT CERVICAL TRAUMA TECHNIQUE: Noncontrast CT of the cervical spine with coronal and sagittal reformatted images. CLINICAL INFORMATION: fall injury COMPARISON: MRI 04/04/2024 DLP: 1376.[address] scans at [facility] use at least one of these dose optimization techniques: automated e xposure control; mA and/or kV adjustment per patient size (includes targeted exams where dose is matc hed to clinical indication); or iterative reconstruction. FINDINGS: Straightening of the normal cervical lordosis with moderate spondylitic changes. Mild central canal s tenosis C4-C6. Slight anterolisthesis C3 on C4. Alignment is unchanged with the recent MRI. Calcified pannus formation at the C1-2 articulation.. Normal craniocervical junction. Dens is normal in appear ance. Normal occipital condyles. Normal C1 ring. No evidence of acute fracture or dislocation. Nuchal ligament calcification. Normal prevertebral soft tissues. CT/CT cervical spin wo con* [id number] IMPRESSION: No evidence of acute fracture or dislocation. Moderate spondylitic changes
--- NOTE | 2024-04-18 13:22 | XR_ITS ---
WS: [email or web address] Exam: XR knee LT 3V* [id number] Date/Time of Exam: 04/18/2024 1:26 PM Reason For Exam: fall injury Comparison 03/20/2024. LEFT total knee arthroplasty noted in satisfactory position without change. No joint effusion. Unrema rkable soft tissues. XR/XR knee LT 3V* [id number] IMPRESSION: 1. Intact LEFT total knee arthroplasty without complication.
--- NOTE | 2024-04-18 13:22 | XR_ITS ---
WS: [email or web address] Exam: XR shoulder LT min 2V* [id number] Date/Time of Exam: 04/18/2024 1:26 PM Reason For Exam: fall injury No fracture or dislocation. Arthrosis at the AC joint. Soft tissue calcification along the humeral he ad suggesting calcific bursitis and/or tendinitis. IMPRESSION1. Degenerative changes and probable calcific tendinitis or bursitis. 2. No fracture.
[2024-04-18 13:27] VITALS: PULSE 61; RESP 16; O2SAT 95
[2024-04-18] MEDS: acetaminophen 325 mg Tablet 650 MG PO (13:42)
[2024-04-18 15:01] VITALS: BP 134/74; PULSE 62; RESP 16; O2SAT 96
== END 2024-04-18 15:02 | disposition home or self-care (01) ==
PROVIDERS: Emergency Provider Nurse Practitioner Family; PCP Family Medicine Adult Medicine
DX: S40.012A Contusion of left shoulder, initial encounter (principal); S09.90XA Unspecified injury of head, initial encounter; I11.0 Hypertensive heart disease with heart failure; I50.9 Heart failure, unspecified; E78.5 Hyperlipidemia, unspecified; W01.0XXA Fall on same level from slipping, tripping and stumbling without subsequent striking against object, initial encounter
CPT/HCPCS: 70450; 72125; 73030; 73562; 99284

== ENCOUNTER 2024-04-25 06:00 | Outpatient (RCR) | payer MEDICARE, MEDICAID, SELFPAY | END 2024-05-23 23:59 | disposition home or self-care (01) | LOC: MPT 06:00 | PROVIDERS: Visit Provider Orthopaedic Surgery | DX: M54.2 Cervicalgia (principal); M54.9 Dorsalgia, unspecified | CPT/HCPCS: 97110; 97140; 97162; G0283 ==

== ENCOUNTER → 2024-05-21 09:09 | Outpatient (BNVA) | payer MEDICARE, MEDICAID, SELFPAY | PROVIDERS: PCP Family Medicine Adult Medicine; Visit Provider Nurse Practitioner Family | DX: I11.0 Hypertensive heart disease with heart failure (principal); I50.9 Heart failure, unspecified; I87.2 Venous insufficiency (chronic) (peripheral) | CPT/HCPCS: 99214 ==

== ENCOUNTER 2024-05-24 06:00 | Outpatient (RCR) | payer MEDICARE, MEDICAID, SELFPAY | END 2024-06-21 15:46 | disposition home or self-care (01) | LOC: MPT 06:00 | PROVIDERS: PCP Family Medicine Adult Medicine; Visit Provider Orthopaedic Surgery | DX: M54.2 Cervicalgia (principal); M54.9 Dorsalgia, unspecified | CPT/HCPCS: 97110; 97140; G0283 ==

== ENCOUNTER → 2024-06-26 13:00 | Outpatient (BNVA) | payer MEDICARE, MEDICAID, SELFPAY | PROVIDERS: PCP Family Medicine Adult Medicine; Referring Provider Family Medicine Adult Medicine; Visit Provider Student in an Organized Health Care Education/Training Program | DX: M75.42 Impingement syndrome of left shoulder (principal) | CPT/HCPCS: 20610; 99214 ==

== ENCOUNTER 2024-07-07 15:46 | Observation (INO) | payer MEDICARE, MEDICAID, SELFPAY ==
[2024-07-07] VITALS (15 sets, daily range): BP systolic 124–185; BP diastolic 68–93; PULSE 54–71; RESP 12–24; TEMP 36.6–36.8; O2SAT 95–100; BMI 49.6; BMI 50.8
--- NOTE | 2024-07-07 15:54 | XRR_ITS ---
PROCEDURE INFORMATION: Exam: XR Chest Exam date and time: 07/07/2024 4:05 PM Age: 73 years old Clinical indication: Chest wall pain; Additional info: Chest pain TECHNIQUE: Imaging protocol: Radiologic exam of the chest. Views: 1 view. COMPARISON: CT cervical spin wo con* [id number] 04/18/2024 2:10 PM FINDINGS: Lungs: Unremarkable. No consolidation. Pleural spaces: Unremarkable. No pleural effusion. No pneumothorax. Heart/Mediastinum: Unremarkable. No cardiomegaly. Diaphragm: Mild asymmetric elevation of the right hemidiaphragm. Bones/joints: Unremarkable. XR/XR chest 1V portable [id number] IMPRESSION: No acute findings.
--- NOTE | 2024-07-07 15:54 | ECG_ITS ---
[facility] Test Date: 2024-07-07 Pat Name: Selena Salgado Department: Room: Gender: Female Parts Analyst: : 1950 Requested By: Howard Boyce Order Number: [id number] Veronica MD: Georges Green M.D. Measurements Intervals [place] Rate: 56 P: 45 ME: 167 QRS: 41 QRSD: 96 T: 48 QT: 421 QTc: 408 Interpretive Statements SINUS BRADYCARDIA INCOMPLETE RIGHT BUNDLE BRANCH BLOCK [90+ ms QRS DURATION, TERMINAL R IN V1/V2, 40+ ms S IN I/aVL/V4/V5/V6] No previous ECG available for comparison Electronically Signed On 07-08-2024 9:15:39 CDT by Georges Green M.D. [id number]
--- NOTE | 2024-07-07 16:42 | PC.NURSE ---
Did not give the patient the aspirin that was ordered because EMS gave her 324 mg of aspirin in the ambulance.
[2024-07-07 16:52] LABS: Basophils % 0.2 %; Eosinophils # 0.1 10^3/uL (0.0-0.8); Eosinophils % 0.6 %; Hematocrit 42.2 % (36-47); Lymphocytes # 2.9 10^3/uL (0.8-4.8); Lymphocytes % 22.2 %; Mean Corpuscular HGB Conc 30.8 g/dL (30-55); Mean Corpuscular Hemoglobin 26.6 pg (27-33); Mean Corpuscular Volume 86.5 fl (85-98); Mean Platelet Volume 9.2 fL (7.4-10.4); Monocytes # 0.8 10^3/uL (0.2-0.9); Monocytes % 5.7 %; Neutrophils # 9.41 10^3/uL (1.8-7.7); Neutrophils % 70.9 %; Nucleated Red Blood Cells % 0 %; Platelet Count 206 10^3/cmm (157-399); Red Blood Count 4.88 10^6/uL (3.85-5.65); Red Cell Distribution Width 18.8 % (12.1-15.1); White Blood Count 13.27 10^3/uL (3.29-11.43)
[2024-07-07 17:14] LABS: Troponin(5th) Baseline 16 ng/L (0-10)
[2024-07-07 17:15] LABS: Alanine Aminotransferase 21 U/L (0-33); Albumin Level 3.8 g/dL (3.5-5.2); Alkaline Phosphatase 116 U/L (35-105); Anion Gap 12.1 (5-19); Aspartate Amino Transferase 15 U/L (0-32); Blood Urea Nitrogen 24 mg/dL (8-23); Carbon Dioxide 31 mmol/L (22-29); Chloride 96 mmol/L (98-107); Creatinine Clr Calc Pharmacy 75.5359; Globulin 1.8 g/dL (1.3-4.6); Glucose 105 mg/dL (65-115); Osmolality Calculated 284 mOsm/kg (285-295); Potassium 4.1 mmol/L (3.5-5.1); Sodium 135 mmol/L (136-145); Total Bilirubin 0.6 mg/dL (0.15-1.2); Total Protein 5.6 g/dL (6.6-8.7)
--- NOTE | 2024-07-07 17:18 | ED_ITS ---
HPI - Chest Pain 2 General: Chief Complaint: Chest Pain Stated Complaint: chest pain Time Seen by Provider: 07/07/24 15:53 History of Present Illness: 73-year-old female who presents to the e mergency room with complaints of chest discomfort. Over the last month she has shortness of breath with activity that she used to tolerate well. Today while at rest she had significant chest discomfort radiating to her back and a little bit into her shoulders accompanied by shortness of breath no diaphoresis. EMS was called she was given aspirin and nitro she noticed shortly after receiving the nitro completely related to resolution of her chest pain symptoms she has had no more chest pain symptoms since arriving here. She has no known coronary artery disease she did have a stress test 18 months ago that was normal also had a normal echocardiogram about that same time. Associated symptoms: Deny abdominal pain, dyspnea or fever(s) Related Data Home Medications Medication Instructions Recorded Confirmed acetaminophen 500 mg tablet 500 mg PO Q6H PRN fever or pain 07/26/22 07/06/24 (Tylenol Extra Strength) multivitamin 1 tab PO DAILY 10/06/22 07/06/24 glucosamine HCl PO 06/06/23 07/06/24 loratadine 10 mg tablet (Allergy 10 mg PO DAILY 02/21/24 07/06/24 Relief (loratadine)) CPAP as directed 06/28/24 07/06/24 Previous Rx's Medication Instructions Recorded atenolol 25 mg tablet 25 mg PO DAILY 90 days #90 tabs 01/11/24 escitalopram oxalate 20 mg tablet 20 mg PO DAILY 90 days #90 tabs 01/11/24 furosemide 20 mg tablet 20 mg PO DAILY PRN edema #90 tabs 01/11/24 hydrochlorothiazide 25 mg tablet 25 mg PO DAILY 90 days #90 tabs 01/11/24 irbesartan 300 mg tablet 300 mg PO DAILY 90 days #90 tabs 01/11/24 levothyroxine 137 mcg tablet 137 mcg PO DAILY 90 days #90 tabs 01/11/24 omeprazole 20 mg capsule,delayed 20 mg PO DAILY PRN reflux 90 days 01/11/24 release #90 caps potassium chloride 20 mEq 20 meq PO DAILY PRN with lasix 90 01/11/24 tablet,extended release days #90 tabs pramipexole 0.5 mg tablet 0.5 mg PO BID 90 days #180 tabs 01/11/24 triamcinolone acetonide 0.1 % 1 applic topical BID 5 days #30 03/01/24 topical cream grams cyclobenzaprine 5 mg tablet 5 mg PO TID PRN muscle spasm 90 04/20/24 days #90 tabs tramadol 50 mg tablet 50 mg PO Q12H PRN pain #60 tabs 04/20/24 diclofenac sodium 1 % topical gel 4 g topical QID #100 grams 06/21/24 (Voltaren Arthritis Pain) albuterol sulfate 90 mcg/actuation 2 puff inhalation Q6H PRN 06/28/24 aerosol inhaler shortness of breath or wheezing #8.5 grams trazodone 100 mg tablet 100 mg PO .at bedtime 90 days #90 06/28/24 tabs potassium 1 ea mucous membrane TID PRN mouth 07/06/24 xzhhzmp-lbjccbtmqqck-ytzz-jeffery pain 7 days #315 mL polysaccharides mouthwash (OraMagicRx mouthwash) Allergies Allergy/AdvReac Type Severity Reaction Status Date / Time adhesive tape Allergy Intermediate ALGY-Rash Verified 07/06/24 13:21 meperidine [From Demerol] Allergy Mild ALGY-RASH Verified 07/06/24 13:21 morphine Allergy Mild ALGY-RASH Verified 07/06/24 13:21 pantoprazole [From Protonix] Allergy Mild ALGY-RASH Verified 07/06/24 13:21 imipramine AdvReac Mild ADR-FLU Verified 07/06/24 13:21 LIKE SYMPTOMS promethazine [From Phenergan] AdvReac Mild ADR-RESTLESS Verified 07/06/24 13:21 LEGS celecoxib [From Celebrex] AdvReac ADR-INCREASED Verified 07/06/24 13:21 APPETITE lisinopril AdvReac ADR-COUGH Verified 07/06/24 13:21 Review of Systems 2 Const: Denies: fever(s) or chills Card: Reports: chest pain, edema and swelling of feet/ankles Resp: Denies: dyspnea GI: Denies: abdominal pain : Denies: dysuria, urinary frequency or urinary urgency Musc: Denies: neck pain or back pain Skin/Breast: Denies: rash PFSH ED 2 PFSH: Medical History Encounter for examination for admission to assisted living facility Left shoulder strain Morbid obesity with BMI of 45.0-49.9, adult Depression Right rotator cuff tear TAMARA positive Heart palpitations Fluid retention in legs CHF (congestive heart failure) Degenerative disk disease Cervical radiculopathy at C6 Hyperlipidemia Restless leg syndrome GERD (gastroesophageal reflux disease) Hypothyroidism Benign hypertension Surgical History H/O gastric sleeve 2010 S/P knee replacement S/P tonsillectomy and adenoidectomy S/P cholecystectomy S/P cataract surgery History of left mastoidectomy Hx of section S/P appendectomy H/O tubal ligation H/O tympanostomy H/O: hysterectomy H/O rhinoplasty History of carpal tunnel surgery H/O decompression of ulnar nerve H/O gastric bypass Family History Other Cancer Diabetes Social History Smoking and tobacco/nicotine status: never used tobacco/nicotine Second hand smoke exposure: No Alcohol intake: never Substance/Drug Use: never Adopted: No service: No Current occupational exposures/hazards: Yes Female Reproductive History: Spontaneous abortions: No Physical Exam 2 Const: GENERAL APPEARANCE: cooperative ORIENTATION/CONSCIOUSNESS: Yes awake, Yes oriented to person, Yes oriented to place and Yes oriented to time HENMT: COMMON NORMALS: normocephalic, atraumatic and hearing grossly normal bilaterally HEAD & SCALP: normocephalic and atraumatic Resp: COMMON NORMALS: normal respiratory effort, No retractions, No use of accessory muscles and clear to auscultation bilaterally AUSCULTATION: clear to auscultation bilaterally Cardio: COMMON NORMALS: regular rate, regular rhythm and No murmurs present (Cardio) RATE: regular rate RHYTHM: regular rhythm GI: COMMON NORMALS: Soft to palpation and No hepatosplenomegaly present A USCULTATION: Yes normoactive bowel sounds PALPATION: Yes Soft to palpation, No Tenderness to palpation present (GI), No Guarding due to palpation present (GI) and Yes No hepatosplenomegaly present Extremity: COMMON NORMALS: normal to inspection, capillary refill normal, no clubbing, cyanosis or edema, no calf tenderness and no pedal edema Neuro: SENSORIUM/ORIENTATION: Yes oriented to person, Yes oriented to place and Yes oriented to time Skin: COMMON NORMALS: no rashes or lesions noted GENERAL SKIN EXAM: no rashes or lesions noted Course 2 Vital Signs: Vital signs: Vital Signs Temperature 97.9 F 07/07/24 15:53 Pulse Rate 54 L 07/07/24 16:40 Respiratory Rate 12 07/07/24 16:40 Blood Pressure 185/91 07/07/24 16:40 Pulse Oximetry 98 07/07/24 16:40 Oxygen Delivery Me thod Room Air 07/07/24 15:53 MDM - Chest Pain Medical Decision Making Labs imaging and EKG reviewed as found in the chart no acute ST changes noted on the chart. Initial troponin is 16. Concerning the patient's symptoms seem to be escalating and relieved completely by nitro. Blood pressure is also elevated. Patient given topical nitro. Will run out serial enzymes place on observation discussed with hospitalist. Medical Records I reviewed the patient's medical records. Lab Data I reviewed the patient's lab results. 07/07/24 16:47 07/07/24 16:47 Radiology Impressions Chest X-Ray 07/07/24 15:54 IMPRESSION: No acute findings. Laboratory Results WBC 13.27 10^3/uL (3.29-11.43) H 07/07/24 16:47 RBC 4.88 10^6/uL (3.85-5.65) 07/07/24 16:47 Hgb 13.00 g/dL (11.27-16.99) 07/07/24 16:47 Hct 42.2 % (36-47) 07/07/24 16:47 MCV 86.5 fl (85-98) 07/07/24 16:47 MCH 26.6 pg (27-33) L 07/07/24 16:47 MCHC 30.8 g/dL (30-55) 07/07/24 16:47 RDW 18.8 % (12.1-15.1) H 07/07/24 16:47 Plt Count 206 10^3/cmm (157-399) 07/07/24 16:47 MPV 9.2 fL (7.4-10.4) 07/07/24 16:47 Neut % (Auto) 70.9 % 07/07/24 16:47 Lymph % (Auto) 22.2 % 07/07/24 16:47 [place] % (Auto) 5.7 % 07/07/24 16:47 Eos % (Auto) 0.6 % 07/07/24 16:47 Baso % (Auto) 0.2 % 07/07/24 16:47 Neut # (Auto) 9.41 10^3/uL (1.8-7.7) H 07/07/24 16:47 Lymph # (Auto) 2.9 10^3/uL (0.8-4.8) 07/07/24 16:47 [place] # (Auto) 0.8 10^3/uL (0.2-0.9) 07/07/24 16:47 Eos # (Auto) 0.1 10^3/uL (0.0-0.8) 07/07/24 16:47 Baso # (Auto) 0.0 10^3/uL (0.0-0.1) 07/07/24 16:47 Nucleated RBC % (auto) 0 % 07/07/24 16:47 Nucleated RBCs # 0.0 /100WBC 07/07/24 16:47 Sodium 135 mmol/L (136-145) L 07/07/24 16:47 Potassium 4.1 mmol/L (3.5-5.1) 07/07/24 16:47 Chloride 96 mmol/L (98-107) L 07/07/24 16:47 Carbon Dioxide 31 mmol/L (22-29) H 07/07/24 16:47 Anion Gap 12.1 (5-19) 07/07/24 16:47 BUN 24 mg/dL (8-23) H 07/07/24 16:47 Creatinine 0.6 mg/dL (0.5-0.9) 07/07/24 16:47 GFR Calculation Not Reportable 07/07/24 16:47 Glucose 105 mg/dL (65-115) 07/07/24 16:47 Calculated Osmolality 284 mOsm/kg (285-295) L 07/07/24 16:47 Calcium 9.0 mg/dL (8.5-10.5) 07/07/24 16:47 Total Bilirubin 0.6 mg/dL (0.15-1.2) 07/07/24 16:47 AST 15 U/L (0-32) 07/07/24 16:47 ALT 21 U/L (0-33) 07/07/24 16:47 Alkaline Phosphatase 116 U/L (35-105) H 07/07/24 16:47 Troponin T Baseline 16 ng/L (0-10) H 07/07/24 16:47 Total Protein 5.6 g/dL (6.6-8.7) L 07/07/24 16:47 Albumin 3.8 g/dL (3.5-5.2) 07/07/24 16:47 Globulin 1.8 g/dL (1.3-4.6) 07/07/24 16:47 All radiology interpretation(s) finalized by discharge Clincial Decision Support The following clinical decision support tools were used to aid in care of the patient HEART Score -> History: Highly Suspicious, EKG: Normal, Age: 65 or more yrs, Risk Factors: >/=3 Risk Factors, Troponin: Baseline Trop <16 ng/L. Resulting HEART Score: 6. Discharge Plan Discharge Patient Disposition: Admitted As Inpatient Admit Provider: Demetrio Barnard Clinical Impression: Unstable angina, Hypertension Condition: Stable Coding Level of Care Code ED Roving Winder for Hossein Doe
--- NOTE | 2024-07-07 18:08 | ECG_ITS ---
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 Measurements Intervals [place] Rate: 55 P: 48 [place]: 168 QRS: 40 QRSD: 97 T: 49 QT: 437 QTc: 420 Interpretive Statements SINUS BRADYCARDIA POSSIBLE RIGHT VENTRICULAR CONDUCTION DELAY [RSR (QR) IN V1/V2] Compared to ECG 07/07/2024 15:48:04 Incomplete right bundle-branch block no longer present Electronically Signed On 07-08-2024 9:24:01 CDT by Georges Green M.D. [email or web address] ([email or web address] va [email or web address] [email or web address] [id number]
--- NOTE | 2024-07-07 18:59 | P.HP_ITS ---
Providers/Chief Complaint 2 Admitting Physician: Demetrio Barnard Primary Care Provider: Kapil Gonzalez MD Chief Complaint: chest pain History of Present Illness Pleasant 73-year-old lady with history of HTN, HLD, obesity, DANITZA on CPAP, hypothyroidism, TAMARA positive, GERD, other medical problems, presented due to episodes of chest pain stabbing through central lower chest towards the back, and radiating towards the left shoulder and up towards her neck, lasting close to 45 minutes relieved by nitroglycerin given by EMS, pain started at rest. She did notice having some dyspnea on exertion yesterday and today as well preceding the pain. She denies cough, no pain on inspiration, denies any pain with movement or repositioning. Denies prior history of NE or stenting. Reports her daughter has had a mild heart attack. Has a brother with congestive heart failure. She herself has a history of palpitations and is on Tylenol for these and hypertension. Denies formal diagnosis of atrial fibrillation or flutter. Review of Systems 2 Const: Denies: fever(s), chills, body aches or malaise Card: Reports: chest pain and dyspnea on exertion; Denies: edema or pre-syncope Resp: Denies: dyspnea, productive cough, change in phlegm color or hemoptysis GI: Denies: abdominal pain, nausea, vomiting, diarrhea, constipation, hematochezia or melena : Denies: flank pain, urinary frequency or hematuria Musc: Denies: back pain, joint swelling or joint redness Skin/Breast: Denies: rash or new lesions Neuro: Denies: headache(s), numbness in extremities, weakness in extremities, dizziness, confusion or seizure-like activity Medications/Allergies Home Medications Medication Instructions Recorded Confirmed Last Taken Type acetaminophen 500 mg tablet 500 mg PO Q6H PRN fever or pain 07/26/22 07/06/24 Unknown History (Tylenol Extra Strength) multivitamin 1 tab PO DAILY 10/06/22 07/06/24 Unknown History glucosamine HCl PO 06/06/23 07/06/24 Unknown History atenolol 25 mg tablet 25 mg PO DAILY 90 days #90 tabs 01/11/24 07/06/24 Unknown Rx escitalopram oxalate 20 mg tablet 20 mg PO DAILY 90 days #90 tabs 01/11/24 07/06/24 Unknown Rx furosemide 20 mg tablet 20 mg PO DAILY PRN edema #90 tabs 01/11/24 07/06/24 Unknown Rx hydrochlorothiazide 25 mg tablet 25 mg PO DAILY 90 days #90 tabs 01/11/24 07/06/24 Unknown Rx irbesartan 300 mg tablet 300 mg PO DAILY 90 days #90 tabs 01/11/24 07/06/24 Unknown Rx levothyroxine 137 mcg tablet 137 mcg PO DAILY 90 days #90 tabs 01/11/24 07/06/24 Unknown Rx omeprazole 20 mg capsule,delayed 20 mg PO DAILY PRN reflux 90 days 01/11/24 07/06/24 Unknown Rx release #90 caps potassium chloride 20 mEq 20 meq PO DAILY PRN with lasix 90 01/11/24 07/06/24 Unknown Rx tablet,extended release days #90 tabs pramipexole 0.5 mg tablet 0.5 mg PO BID 90 days #180 tabs 01/11/24 07/06/24 Unknown Rx loratadine 10 mg tablet (Allergy 10 mg PO DAILY 02/21/24 07/06/24 Unknown History Relief (loratadine)) triamcinolone acetonide 0.1 % 1 applic topical BID 5 days #30 03/01/24 07/06/24 Unknown Rx topical cream grams cyclobenzaprine 5 mg tablet 5 mg PO TID PRN muscle spasm 90 04/20/24 07/06/24 Unknown Rx days #90 tabs tramadol 50 mg tablet 50 mg PO Q12H PRN pain #60 tabs 04/20/24 07/06/24 Unknown Rx diclofenac sodium 1 % topical gel 4 g topical QID #100 grams 06/21/24 07/06/24 Unknown Rx (Voltaren Arthritis Pain) CPAP as directed 06/28/24 07/06/24 Unknown History albuterol sulfate 90 mcg/actuation 2 puff inhalation Q6H PRN 06/28/24 07/06/24 Unknown Rx aerosol inhaler shortness of breath or wheezing #8.5 grams trazodone 100 mg tablet 100 mg PO .at bedtime 90 days #90 06/28/24 07/06/24 Unknown Rx tabs potassium 1 ea mucous membrane TID PRN mouth 07/06/24 07/06/24 Unknown Rx gualtou-qilxihyqmgcr-sogl-jeffery pain 7 days #315 mL polysaccharides mouthwash (OraMagicRx mouthwash) Allergies Allergy/AdvReac Type Severity Reaction Status Date / Time adhesive tape Allergy Intermediate ALGY-Rash Verified 07/06/24 13:21 meperidine [From Demerol] Allergy Mild ALGY-RASH Verified 07/06/24 13:21 morphine Allergy Mild ALGY-RASH Verified 07/06/24 13:21 pantoprazole [From Protonix] Allergy Mild ALGY-RASH Verified 07/06/24 13:21 imipramine AdvReac Mild ADR-FLU Verified 07/06/24 13:21 LIKE SYMPTOMS promethazine [From Phenergan] AdvReac Mild ADR-RESTLESS Verified 07/06/24 13:21 LEGS celecoxib [From Celebrex] AdvReac ADR-INCREASED Verified 07/06/24 13:21 APPETITE lisinopril AdvReac ADR-COUGH Verified 07/06/24 13:21 PFSH Acute 2 PFSH: Medical History Encounter for examination for admission to assisted living facility Left shoulder strain Morbid obesity with BMI of 45.0-49.9, adult Depression Right rotator cuff tear TAMARA positive Heart palpitations Fluid retention in legs CHF (congestive heart failure) Degenerative disk disease Cervical radiculopathy at C6 Hyperlipidemia Restless leg syndrome GERD (gastroesophageal reflux disease) Hypothyroidism Benign hypertension Surgical History H/O gastric sleeve 2010 S/P knee replacement S/P tonsillectomy and adenoidectomy S/P cholecystectomy S/P cataract surgery History of left mastoidectomy Hx of section S/P appendectomy H/O tubal ligation H/O tympanostomy H/O: hysterectomy H/O rhinoplasty History of carpal tunnel surgery H/O decompression of ulnar nerve H/O gastric bypass Family History Other Cancer Diabetes Social History Smoking and tobacco/nicotine status: never used tobacco/nicotine Second hand smoke exposure: No Alcohol intake: never Substance/Drug Use: never Adopted: No service: No Current occupational exposures/hazards: Yes Female Reproductive History: Spontaneous abortions: No Vitals/I&O/Wt Last Vital Signs Temp 97.9 F 07/07/24 15:53 Pulse 55 L 07/07/24 18:42 Resp 19 H 07/07/24 17:30 BP 165/84 07/07/24 18:42 Pulse Ox 99 07/07/24 18:42 O2 Del Method Room Air 07/07/24 15:53 Weight last 48 hrs Weight 119.295 kg Physical Exam 2 Narrative: Accompanied by her Const: COMMON NORMALS: patient oriented x3 and alert GENERAL APPEARANCE: c ooperative NUTRITIONAL APPEARANCE: obese ORIENTATION/CONSCIOUSNESS: Yes awake HENMT: COMMON NORMALS: oropharynx normal Neck/C-Spine: COMMON NORMALS: no JVD Chest: OTHER: Pain not reproducible on palpation. Resp: COMMON NORMALS: normal respiratory effort and clear to auscultation bilaterally AUSCULTATION: clear to auscultation bilaterally Cardio: COMMON NORMALS: no JVD, regular rhythm, S1 normal heart sound present, S2 normal heart sound present and No murmurs present (Cardio) RHYTHM: regular rhythm HEART SOUNDS: S1 normal heart sound present and S2 normal heart sound present GI: COMMON NORMALS: Normal to inspection, nondistended, normoactive bowel sounds present, Soft to palpation and non-tender PALPATION: Yes Soft to palpation Extremity: COMMON NORMALS: no joint enlargement and no pedal edema Neuro: COMMON NORMALS: patient oriented x3 and moves all extremities S ENSORIUM/ORIENTATION: Yes alert Skin: COMMON NORMALS: no rashes or lesions noted GENERAL SKIN EXAM: no rashes or lesions noted Data 07/07/24 16:47 07/07/24 16:47 A&P Assessment and plan (1) Chest pain: Chest pain at rest, lasting close to an hour, central lower chest, radiating towards the back, towards the left shoulder and her jaw. Assess for possible unstable angina. Resolved with nitroglycerin. Reviewed vitals, CBC, CMP, baseline Introl troponin, unchanged, mildly elevated, reviewed EKG, on my interpretation with sinus bradycardia. Pending official read. She states that usually her heart rate stays in the 60s to 70s. This evening was down at 58. Reviewed chest x-ray. Reviewed ED note, discussed with ED provider. Requested D-dimer. Risk factors of coronary disease including hypertension, hyperlipidemia, obesity, history of NE in her daughter. Complete troponin EKG series. Obtain TTE. Monitor on telemetry with noted bradycardia. He is on atenolol, reassess prior to restarting. Monitor blood pressures, noted hypertensive earlier today 185/91. Will give amlodipine. Reviewed last stress test, back in November 2022 with reported normal imaging. Would benefit from repeat stress testing although currently not available. To be determined depending on her condition, investigations whether this should be done on Tuesday or as outpatient follow-up. Heart score appears to be 6, likely would benefit from stress test prior to her discharge. Nitroglycerin as needed. Aspirin, statin, hold off beta-ray due to bradycardia. Optimize control of blood pressure. Plan Recurrent lower extremity edema: She states she is on HCTZ, furosemide, denies history of known CHF. Assess TTE. DANITZA: Uses nightly CPAP. Requested. HTN: Blood pressure suboptimally controlled currently, will give dose of amlodipine. HLD, statin Obesity, follow-up with primary provider hypothyroidism, on levothyroxine. TAMARA positive, GERD: Allergy listed to Protonix. We do not have omeprazole. Will give famotidine for now. Could use her on omeprazole if this can be brought in. Attestations 2 Medical Necessity Statement*: Place in observation for additional assessment and management of chest pain, risk factors of coronary disease, assess for possible unstable angina. and High MDM includes amount and/or complexity of data reviewed/ordered [ previous or external records, resulted lab(s)/test(s), ordered lab(s)/test(s), independent test interpretation and other healthcare professional discussion] as documented Diagnoses Chest pain R07.9
[2024-07-07 19:38] LABS: D Dimer 0.44 ug/mLFEU (0-0.59)
[2024-07-07] MEDS: enoxaparin 40 mg/0.4 mL Syringe SUBCUT (19:57)
[2024-07-07 20:10] LABS: Troponin 5 2HR 13.67 ng/L (0-10)
[2024-07-07 20:12] LABS: Troponin 5 2HR Delta -2.33 ABS# (0-10)
[2024-07-07] MEDS: atorvastatin 40 mg Tablet PO (21:09)
[2024-07-07] MEDS: pramipexole 0.25 mg Tablet 0.5 MG PO (21:09)
[2024-07-07] MEDS: amlodipine 5 mg Tablet PO (21:10)
[2024-07-07] MEDS: trazodone 50 mg Tablet PO (21:10)
[2024-07-07] MEDS: acetaminophen 325 mg Tablet 650 MG PO (21:10)
--- NOTE | 2024-07-07 22:28 | ECG_ITS ---
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 Measurements Intervals [place] Rate: 56 P: 49 [place]: 165 QRS: 37 QRSD: 98 T: 50 QT: 432 QTc: 420 Interpretive Statements SINUS BRADYCARDIA INCOMPLETE RIGHT BUNDLE BRANCH BLOCK [90+ ms QRS DURATION, TERMINAL R IN V1/V2, 40+ ms S IN I/aVL/V4/V5/V6] Compared to ECG 07/07/2024 18:08:38 Incomplete right bundle-branch block now present Electronically Signed On 07-08-2024 9:22:08 CDT by Georges Green M.D. [email or web address]/[id number]
[2024-07-08 03:09] VITALS: BP 150/70; PULSE 60; RESP 16; TEMP 36.3; O2SAT 96
[2024-07-08 04:00] VITALS: PULSE 52; RESP 15; O2SAT 96
[2024-07-08 04:27] LABS: Basophils % 0.2 %; Eosinophils # 0.1 10^3/uL (0.0-0.8); Hematocrit 39.3 % (36-47); Mean Corpuscular Hemoglobin 26.9 pg (27-33); Mean Corpuscular Volume 86.8 fl (85-98); Mean Platelet Volume 9.8 fL (7.4-10.4); Monocytes % 7.6 %; Neutrophils # 8.31 10^3/uL (1.8-7.7); Neutrophils % 66.8 %; Nucleated Red Blood Cells % 0 %; Platelet Count 185 10^3/cmm (157-399); Red Blood Count 4.53 10^6/uL (3.85-5.65); Red Cell Distribution Width 18.7 % (12.1-15.1); White Blood Count 12.44 10^3/uL (3.29-11.43)
[2024-07-08 04:49] LABS: Alanine Aminotransferase 18 U/L (0-33); Albumin Level 3.4 g/dL (3.5-5.2); Alkaline Phosphatase 101 U/L (35-105); Aspartate Amino Transferase 15 U/L (0-32); Blood Urea Nitrogen 21 mg/dL (8-23); Carbon Dioxide 27 mmol/L (22-29); Chloride 101 mmol/L (98-107); Glucose 104 mg/dL (65-115); Magnesium 2.2 mg/dL (1.7-2.3); Osmolality Calculated 285 mOsm/kg (285-295); Phosphorus 3.5 mg/dL (2.5-4.5); Sodium 136 mmol/L (136-145); Total Bilirubin 0.6 mg/dL (0.15-1.2); Total Protein 5.4 g/dL (6.6-8.7)
[2024-07-08 05:18] VITALS: PULSE 50
[2024-07-08 08:00] VITALS: BP 127/59; PULSE 58; RESP 16; TEMP 36.7; O2SAT 97
[2024-07-08] MEDS: pramipexole 0.25 mg Tablet 0.5 MG PO (08:59)
[2024-07-08] MEDS: famotidine 20 mg Tablet PO (08:59)
[2024-07-08] MEDS: aspirin 325 mg Tablet PO (08:59)
[2024-07-08] MEDS: acetaminophen 325 mg Tablet 650 MG PO (09:02)
[2024-07-08 12:00] VITALS: BP 124/61; PULSE 62; RESP 12; TEMP 36.3; O2SAT 96
--- NOTE | 2024-07-08 14:02 | PM.DCS ---
Discharge Providers Date of Admission: 07/07/24 17:27 Date of Discharge: July 08, 2024 Attending Provider at Admission: Demetrio Barnard Attending Provider at Discharge: Demetrio Barnard Primary Care Provider: Kapil Gonzalez MD Diagnoses at Discharge Discharge Diagnosis (1) Chest pain: Status: Acute Reason for Visit Reason for Visit: chest pain Brief History: Pleasant 73-year-old lady with history of HTN, HLD, obesity, DANITZA on CPAP, hypothyroidism, TAMARA positive, GERD, other medical problems, presented due to episodes of chest pain stabbing through central lower chest towards the back, and radiating towards the left shoulder and up towards her neck, lasting close to 45 minutes relieved by nitroglycerin given by EMS, pain started at rest. She did notice having some dyspnea on exertion yesterday and today as well preceding the pain. She denies cough, no pain on inspiration, denies any pain with movement or repositioning. Denies prior history of MD or stenting. Reports her daughter has had a mild heart attack. Has a brother with congestive heart failure. She herself has a history of palpitations and is on Tylenol for these and hypertension. Denies formal diagnosis of atrial fibrillation or flutter. Hospital Course Hospital Course She remained chest pain-free in the hospital. Blood pressures improved. Today 124/61. Heart rates with bradycardia reached into low 50s, atenolol was held while in the hospital. She states that she gets palpitations without it and requested to continue at half dose currently, decreased to 12.5 mg at discharge, but she is asked to continue to monitor blood pressure and heart rates and in case of further bradycardia may have to be discontinued entirely. She is started on amlodipine to help with management of blood pressure. Continue irbesartan. Troponin and EKG series were completed, with mild troponin elevation, incomplete right bundle branch block. No sign of acute MD. D-dimer was obtained and unremarkable at 0.44. Echocardiogram obtained, with normal ejection fraction, trace MVR, mild TVR. She reports she is feeling well and wants to go home today, not wanting to stay for stress test till tomorrow. Discussed with her would benefit from stress testing given cardiac risk factors, she is willing to follow-up for stress test as outpatient, which is requested for her. As per discussion she also knows to seek medical attention in case of any concerning symptoms. She is asked to follow-up with cardiology in office. Physical Exam Narrative: Accompanied by her family. No recurrence of chest pain. Ambulated in the hallway with the monitor, no recurrence of pain. Const: COMMON NORMALS: patient oriented x3 and alert GENERAL APPEARANCE: cooperative NUTRITIONAL APPEARANCE: obese ORIENTATION/CONSCIOUSNESS: Yes awake HENMT: COMMON NORMALS: oropharynx normal Neck/C-Spine: COMMON NORMALS: no JVD Resp: COMMON NORMALS: normal respiratory effort and clear to auscultation bilaterally AUSCULTATION: clear to auscultation bilaterally Cardio: COMMON NORMALS: no JVD, regular rhythm, S1 normal heart sound present, S2 normal heart sound present and No murmurs present (Cardio) RHYTHM: regular rhythm HEART SOUNDS: S1 normal heart sound present and S2 normal heart sound present GI: COMMON NORMALS: Normal to inspection, nondistended, normoactive bowel sounds present, Soft to palpation and non-tender PALPATION: Yes Soft to palpation Extremity: COMMON NORMALS: no joint enlargement and no pedal edema Neuro: COMMON NORMALS: patient oriented x3 and moves all extremities SENSORIUM/ORIENTATION: Yes alert Skin: COMMON NORMALS: no rashes or lesions noted GENERAL SKIN EXAM: no rashes or lesions noted Discharge Data Studies Completed and Pending Completed Studies During Hospitalization Category Date Time Status XR chest 1V portable [id number] Stat Exams 07/07/24 15:54 Completed CV. echo complete* [id number] Routine Ultrasound 07/08/24 19:06 Completed Pending at discharge Category Date Time Status Complete Blood Count w/Auto AM LABS Lab 07/09/24 04:00 Ordered Complete Blood Count w/Auto AM LABS Lab 07/10/24 04:00 Ordered Comprehensive Metabolic Panel AM LABS Lab 07/09/24 04:00 Ordered Comprehensive Metabolic Panel AM LABS Lab 07/10/24 04:00 Ordered Radiology Impressions Chest X-Ray 07/07/24 15:54 IMPRESSION: No acute findings. Laboratory Results WBC 12.44 10^3/uL (3.29-11.43) H 07/08/24 04:06 RBC 4.53 10^6/uL (3.85-5.65) 07/08/24 04:06 Hgb 12.20 g/dL (11.27-16.99) 07/08/24 04:06 Hct 39.3 % (36-47) 07/08/24 04:06 MCV 86.8 fl (85-98) 07/08/24 04:06 MCH 26.9 pg (27-33) L 07/08/24 04:06 MCHC 31.0 g/dL (30-55) 07/08/24 04:06 RDW 18.7 % (12.1-15.1) H 07/08/24 04:06 Plt Count 185 10^3/cmm (157-399) 07/08/24 04:06 MPV 9.8 fL (7.4-10.4) 07/08/24 04:06 Neut % (Auto) 66.8 % 07/08/24 04:06 Lymph % (Auto) 24.0 % 07/08/24 04:06 [place] % (Auto) 7.6 % 07/08/24 04:06 Eos % (Auto) 1.0 % 07/08/24 04:06 Baso % (Auto) 0.2 % 07/08/24 04:06 Neut # (Auto) 8.31 10^3/uL (1.8-7.7) H 07/08/24 04:06 Lymph # (Auto) 3.0 10^3/uL (0.8-4.8) 07/08/24 04:06 [place] # (Auto) 1.0 10^3/uL (0.2-0.9) H 07/08/24 04:06 Eos # (Auto) 0.1 10^3/uL (0.0-0.8) 07/08/24 04:06 Baso # (Auto) 0.0 10^3/uL (0.0-0.1) 07/08/24 04:06 Nucleated RBC % (auto) 0 % 07/08/24 04:06 Nucleated RBCs # 0.0 /100WBC 07/08/24 04:06 D-Dimer 0.44 ug/mLFEU (0-0.59) 07/07/24 16:47 Sodium 136 mmol/L (136-145) 07/08/24 04:06 Potassium 4.0 mmol/L (3.5-5.1) 07/08/24 04:06 Chloride 101 mmol/L (98-107) 07/08/24 04:06 Carbon Dioxide 27 mmol/L (22-29) 07/08/24 04:06 Anion Gap 12.0 (5-19) 07/08/24 04:06 BUN 21 mg/dL (8-23) 07/08/24 04:06 Creatinine 0.5 mg/dL (0.5-0.9) 07/08/24 04:06 GFR Calculation Not Reportable 07/08/24 04:06 Glucose 104 mg/dL (65-115) 07/08/24 04:06 Calculated Osmolality 285 mOsm/kg (285-295) 07/08/24 04:06 Calcium 9.0 mg/dL (8.5-10.5) 07/08/24 04:06 Phosphorus 3.5 mg/dL (2.5-4.5) 07/08/24 04:06 Magnesium 2.2 mg/dL (1.7-2.3) 07/08/24 04:06 Total Bilirubin 0.6 mg/dL (0.15-1.2) 07/08/24 04:06 AST 15 U/L (0-32) 07/08/24 04:06 ALT 18 U/L (0-33) 07/08/24 04:06 Alkaline Phosphatase 101 U/L (35-105) 07/08/24 04:06 Troponin T Baseline 16 ng/L (0-10) H 07/07/24 16:47 Troponin T 120 Minute 13.67 ng/L (0-10) H 07/07/24 19:22 Delta Troponin T -2.33 ABS# (0-10) L 07/07/24 19:22 Troponin T Hi Sens 6Hr 17.50 ng/L (0-10) H 07/07/24 22:05 Troponin T Hi Sens 6Hr Delta 1.50 ng/L (0-12) 07/07/24 22:05 Total Protein 5.4 g/dL (6.6-8.7) L 07/08/24 04:06 Albumin 3.4 g/dL (3.5-5.2) L 07/08/24 04:06 Globulin 2.0 g/dL (1.3-4.6) 07/08/24 04:06 Vitals Last Vital Signs Temp 97.3 F L 07/08/24 12:00 Pulse 62 07/08/24 12:00 Resp 12 07/08/24 12:00 BP 124/61 07/08/24 12:00 Pulse Ox 96 07/08/24 12:00 O2 Del Method Room Air 07/08/24 12:00 Discharge Plan Discharge Patient Disposition: Home Condition: Stable Prescriptions: New atorvastatin 40 mg Tablet 40 mg PO BEDTIME Qty: 90 0RF amlodipine 5 mg tablet 5 mg PO DAILY Qty: 90 0RF aspirin 81 mg capsule 81 mg PO DAILY Qty: 90 0RF Continued multivitamin Tablet 1 tab PO DAILY acetaminophen [Tylenol Extra Strength] 500 mg tablet 500 mg PO Q6H PRN (Reason: fever or pain) pramipexole 0.5 mg tablet 0.5 mg PO BID 90 Days Qty: 180 2RF hydrochlorothiazide 25 mg tablet 25 mg PO DAILY 90 Days Qty: 90 2RF furosemide 20 mg tablet 20 mg PO DAILY PRN (Reason: edema) Qty: 90 2RF irbesartan 300 mg tablet 300 mg PO DAILY 90 Days Qty: 90 2RF omeprazole 20 mg capsule,delayed release(DR/EC) 20 mg PO DAILY PRN (Reason: reflux) 90 Days Qty: 90 2RF potassium chloride 20 mEq tablet extended release 20 meq PO DAILY PRN (Reason: with lasix) 90 Days Qty: 90 2RF loratadine [Allergy Relief (loratadine)] 10 mg tablet 10 mg PO DAILY tramadol 50 mg tablet 50 mg PO Q12H PRN (Reason: pain) Qty: 60 0RF cyclobenzaprine 5 mg tablet 5 mg PO TID PRN (Reason: muscle spasm) 90 Days Qty: 90 1RF diclofenac sodium [Voltaren Arthritis Pain] 1 % gel 4 g topical QID Qty: 100 2RF Rx Instructions: apply to single knee, ankle, foot; for foot includes sole/toes/top of foot levothyroxine 137 mcg tablet 137 mcg PO 0630 trazodone 100 mg tablet 100 mg PO 1999 escitalopram oxalate 20 mg tablet 20 mg PO 1999 Changed atenolol 25 mg tablet 12.5 mg PO DAILY 90 Days Qty: 90 2RF Discharge Orders: Discharge Order (Routine); Ordered 07/08/24 Ordered By: Demetrio Barnard Other Ambulatory Orders: Sestamibi Stress Test Request (Routine) Timeframe: 1 Day Facility: [facility] - Location: Cardiac Diagnostic Laboratory Ordered By: Demetrio Barnard Referrals: Kapil Gonzalez MD [Primary Care Provider] - 4-7 days (We have notified your physician's clinic of the need for a follow-up appointment to be scheduled. If you have not heard from them within the next 2 business days, please call them directly. ) Cecy Oconnor FNP [Nurse Practitioner] - 1 week (We have notified your physician's clinic of the need for a follow-up appointment to be scheduled. If you have not heard from them within the next 2 business days, please call them directly. ) Discharge Diet: Cardiac Discharge Activity: Increase activity as tolerated and Limit activity as instructed Patient Instructions: Aspirin (By mouth), Amlodipine (By mouth), Atorvastatin (By mouth), Chest Pain (GEN), Heart Healthy Diet (GEN), Bradycardia (GEN), Hypertension (GEN), Prevent Cardiovascular Disease (GEN) Activity Restrictions/Additional Instructions: An outpatient stress test is being requested for review. Please follow-up on it and complete the test. Follow-up with cardiology in office and your primary provider for reassessment after chest pain episodes and to discuss results of stress testing. Additionally discussed with cardiology and your primary provider regarding slower heart rate. Your atenolol dose was decreased down to 12.5 mg. Due to very elevated blood pressure on presentation you are also started on amlodipine to help with blood pressure management. Continue irbesartan. Please check your blood pressure and heart rates twice daily, write down values to bring to your appointment. Your chest pain may have been triggered by very high blood pressure versus musculoskeletal cause or other cause. Continue to optimize control of blood pressure, avoid blood pressure spikes. Maintain cardiac diet. Seek medical attention in case of any worsening or new concerning symptoms. Amlodipine could sometimes contribute to leg swelling but this should be less likely as long as you are on a irbesartan. Amlodipine should not slow down your heart rate. You are started on low-dose aspirin and cholesterol medication (atorvastatin). Please follow-up with your primary provider. If stress test is unremarkable aspirin possibly could be discontinued. As discussed, seek medical attention in case of any worsening or new concerning symptoms. Discharge Attestations Time Spent in Discharge Care*: greater than 30 min Quality Metrics Clinical Quality Measures [ No reported AMI, CVA or VTE this stay] Coding Level of Care Code 36609 Total time (in minutes) for Discharge: 50 Diagnoses Chest pain R07.9
[2024-07-08 15:14] VITALS: BP 124/61; PULSE 62; RESP 12; TEMP 36.3; O2SAT 96
--- NOTE | 2024-07-08 19:06 | USCV_ITS ---
NaomiSelena Age: 73 Gender: F : 1950 Exam Date: 07/08/2024 08:26 Ordering Phys: Demetrio Barnard MD Technologist: Karan Trevino Exam Location: [facility] [place] Indication: chest pain, crowley BP: 127 / 59 HR: 61 Rhythm: Sinus Technical Quality: Adequate MEASUREMENTS (Male / Female) Normal Values 2D ECHO LV Diastolic Diameter PLAX 4.8 cm 4.2 - 5.9 / 3.9 - 5.3 cm IVS Diastolic Thickness 1.7 cm 0.6 - 1.0 / 0.6 - 0.9 cm IVS Systolic Thickness 2.1 cm LVPW Diastolic Thickness 1.5 cm 0.6 - 1.0 / 0.6 - 0.9 cm LVPW Systolic Thickness 2.5 cm LVOT Diameter 2.0 cm LV Ejection Fraction 2D Teich 78.8 % LV Ejection Fraction MOD 4C 67.3 % LV Ejection Fraction MOD 2C 54.5 % LV Ejection Fraction 2C AL 55.9 % LA Diameter 4.2 cm RA Systolic Volume 4C AL 67.1 ml RA Systolic Volume 4C MOD 66.7 ml LA Sys Volume AL 56.7 cm cubed LA Sys Volume Index AL 23.9 cm cubed/m squared Aorta at Sinotubular Diameter 2.4 cm IVC Diameter 1.9 cm M-MODE LA Ao Ratio MM 1.4 AV Cusp Separation MM 1.8 cm DOPPLER AV Peak Velocity 118.0 cm/s LVOT Peak Velocity 64.0 cm/s AV Area Cont Eq vti 1.9 cm squared AV Area Cont Eq pk 1.7 cm squared MV Peak Velocity 120.0 cm/s MV Area PHT 4.3 cm squared Mitral E to A Ratio 0.9 TV Peak Velocity 314.5 cm/s TR Peak Velocity 343.0 cm/s TR Peak Gradient 47.1 mmHg TR Mean Velocity 273.0 cm/s TR Mean Gradient 31.5 mmHg TR Velocity Time Integral 90.9 cm PV Peak Velocity 79.0 cm/s RV Ejection Time 0.4 s FINDINGS Left Ventricle Left ventricle is normal in size. LV systolic function is normal with EF 55 to 60%. No regional wall motion abnormalities are seen. Right Ventricle Normal in size and function Right Atrium Normal in size Left Atrium Normal in size Mitral Valve Mild mitral annualar calcification. Trace mitral regurgitation. Aortic Valve Structurally normal aortic valve. No significant stenosis or regurgitation. Tricuspid Valve Mild tricuspid regurgitation. Insufficient TR jet to calculate RVSP Pulmonic Valve Not well visualized Pericardium Normal Aorta Normal in size IVC Appears to be normal CONCLUSIONS LV systolic function is normal with EF of 55 to 60%. Trace mitral regurgitation Mild tricuspid regurgitation Compared to prior echocardiogram from 2022, no significant changes are seen. Georges Green MD (Electronically Signed) Final Date: 08 July 2024 10:14 S
== END 2024-07-08 15:15 | disposition home or self-care (01) ==
LOC: ER 17:20 → CSU 18:04
PROVIDERS: Admitting Provider Internal Medicine; Emergency Provider Family Medicine; PCP Family Medicine Adult Medicine; Visit Provider Internal Medicine
DX: R07.9 Chest pain, unspecified (principal); I10 Essential (primary) hypertension; E78.5 Hyperlipidemia, unspecified; E66.9 Obesity, unspecified; Z68.43 Body mass index [BMI] 50.0-59.9, adult; G47.33 Obstructive sleep apnea (adult) (pediatric); K21.9 Gastro-esophageal reflux disease without esophagitis; E03.9 Hypothyroidism, unspecified
CPT/HCPCS: 36415; 71045; 80053; 83735; 84100; 84484; 85025; 85378; 93005; 93306; 94660; 96372; 99285; G0378; J1650

== ENCOUNTER → 2024-07-11 14:18 | Outpatient (BNVA) | payer MEDICARE, MEDICAID, SELFPAY | PROVIDERS: PCP Family Medicine Adult Medicine; Visit Provider Nurse Practitioner Family | DX: I10 Essential (primary) hypertension (principal) | CPT/HCPCS: 99213 ==

== ENCOUNTER → 2024-07-17 09:21 | Outpatient (BNVA) | payer MEDICARE, MEDICAID, SELFPAY | PROVIDERS: PCP Family Medicine Adult Medicine; Visit Provider Student in an Organized Health Care Education/Training Program | DX: M17.11 Unilateral primary osteoarthritis, right knee | CPT/HCPCS: 20610; 73560; 73565; 99213; J3301 ==

== ENCOUNTER 2024-08-09 09:53 | Outpatient (CLI) | payer MEDICARE, MEDICAID, SELFPAY ==
[2024-08-09 10:51] LABS: Blood Urea Nitrogen 15 mg/dL (8-23); Calcium 9.2 mg/dL (8.5-10.5); Carbon Dioxide 27 mmol/L (22-29); Chloride 96 mmol/L (98-107); Glucose 85 mg/dL (65-115); NT Pro B Type Natriuretic Pept 175 pg/mL (0-125); Osmolality Calculated 272 mOsm/kg (285-295); Sodium 131 mmol/L (136-145)
== END 2024-08-09 09:54 | disposition home or self-care (01) ==
LOC: LAB 09:55
PROVIDERS: PCP Family Medicine Adult Medicine; Visit Provider Nurse Practitioner Family
DX: I10 Essential (primary) hypertension (principal); I50.22 Chronic systolic (congestive) heart failure; I20.0 Unstable angina
CPT/HCPCS: 36415; 80048; 83880

== ENCOUNTER 2024-08-24 17:35 | Emergency (ER) | payer MEDICARE, MEDICAID, SELFPAY ==
[2024-08-24] VITALS (10 sets, daily range): BP systolic 108–163; BP diastolic 65–97; PULSE 56–83; RESP 17–20; TEMP 36.9; O2SAT 14–100; BMI 48.2
--- NOTE | 2024-08-24 17:47 | ECG_ITS ---
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 Measurements Intervals [place] Rate: 57 P: 56 OK: 187 QRS: 62 QRSD: 105 T: 61 QT: 427 QTc: 417 Interpretive Statements SINUS BRADYCARDIA INCOMPLETE RIGHT BUNDLE BRANCH BLOCK Compared to ECG 07/07/2024 22:28:23 No significant changes Electronically Signed On 08-25-2024 13:42:23 CDT by Nydia Bejarano M.D. [email or web address]
--- NOTE | 2024-08-24 18:15 | XRR_ITS ---
PROCEDURE INFORMATION: Exam: XR Chest Exam date and time: 08/24/2024 6:50 PM Age: 73 years old Clinical indication: Chest pressure; Patient HX: Chest pain; Chf; Fluid retention TECHNIQUE: Imaging protocol: Radiologic exam of the chest. Views: 1 view. COMPARISON: CR (CHEST, ) 07/07/2024 4:05 PM FINDINGS: Lungs: There is no consolidation. Pleural spaces: There is no pleural effusion or pneumothorax. Heart/Mediastinum: There is mild enlargement of the cardiac silhouette. Bones/joints: Bones are unremarkable. XR/XR chest 1V portable [id number] IMPRESSION: 1. No acute findings. 2. Stable cardiac enlargement.
[2024-08-24 18:39] LABS: Basophils % 0.3 %; Eosinophils # 0.1 10^3/uL (0.0-0.8); Hematocrit 39.3 % (36-47); Lymphocytes # 2.7 10^3/uL (0.8-4.8); Lymphocytes % 26.5 %; Mean Corpuscular HGB Conc 31.3 g/dL (30-55); Mean Corpuscular Hemoglobin 26.7 pg (27-33); Mean Corpuscular Volume 85.2 fl (85-98); Mean Platelet Volume 9.5 fL (7.4-10.4); Monocytes # 0.8 10^3/uL (0.2-0.9); Monocytes % 7.3 %; Neutrophils # 6.64 10^3/uL (1.8-7.7); Neutrophils % 64.5 %; Nucleated Red Blood Cells % 0 %; Platelet Count 185 10^3/cmm (157-399); Red Blood Count 4.61 10^6/uL (3.85-5.65); Red Cell Distribution Width 18.3 % (12.1-15.1); White Blood Count 10.28 10^3/uL (3.29-11.43)
[2024-08-24 19:06] LABS: Blood Urea Nitrogen 13 mg/dL (8-23); Calcium 9.1 mg/dL (8.5-10.5); Carbon Dioxide 32 mmol/L (22-29); Chloride 98 mmol/L (98-107); Creatinine Clr Calc Pharmacy 74.1007; Glucose 99 mg/dL (65-115); NT Pro B Type Natriuretic Pept 175 pg/mL (0-125); Osmolality Calculated 284 mOsm/kg (285-295); Sodium 137 mmol/L (136-145)
[2024-08-24 19:17] LABS: Troponin(5th) Baseline 13 ng/L (0-10)
--- NOTE | 2024-08-24 20:12 | ECG_ITS ---
[facility] Date: 2024-08-24 Pat Name: Selena Salgado Department: Room: Gender: Female Creative Specialist: : 1950 Requested By: Lee Jerez Order Number: [id number] Veronica MD: Nydia Bejarano M.D. Measurements Intervals [place] Rate: 58 P: 50 CT: 178 QRS: 48 QRSD: 102 T: 49 QT: 451 QTc: 443 Interpretive Statements SINUS BRADYCARDIA INCOMPLETE RIGHT BUNDLE BRANCH BLOCK Compared to ECG 08/24/2024 17:47:39 No significant changes Electronically Signed On 08-25-2024 13:48:45 CDT by Nydia Bejarano M.D. [email or web address]
[2024-08-24 21:16] LABS: Troponin 5 2HR 10.64 ng/L (0-10)
[2024-08-24 21:20] LABS: Troponin 5 2HR Delta -2.36 ABS# (0-10)
--- NOTE | 2024-08-24 21:49 | ED_ITS ---
HPI - Chest Pain 2 General: Chief Complaint: Chest Pain Stated Complaint: cp Time Seen by Provider: 08/24/24 17:45 History of Present Illness: This patient is a 73-year-old white female who presents to the ER stating that she had chest pain at 4:30 PM today that lasted about 10 minutes. She described it as a sharp sensation on the central chest that radiated into her neck and back. Her pain is completely resolved now. She did not have any associated shortness of breath. She had did have some nausea. No diaphoresis. Patient states she has had similar symptoms recently and she did follow-up with cardiology. She had a stress test which was positive and was recommended she have a cardiac catheterization. She had some issues with insurance covering up at that has been resolved and she has been scheduled for the catheterization. Patient was brought in by EMS today and she was given 324 mg of aspirin. She was not having any chest pain when EMS arrived so no nitro was given. Associated symptoms: Reports nausea Related Data Home Medications Medication Instructions Recorded Confirmed acetaminophen 500 mg tablet 500 mg PO Q6H PRN fever or pain 07/26/22 07/17/24 (Tylenol Extra Strength) multivitamin 1 tab PO DAILY 10/06/22 07/17/24 loratadine 10 mg tablet (Allergy 10 mg PO DAILY 02/21/24 07/17/24 Relief (loratadine)) escitalopram oxalate 20 mg tablet 20 mg PO 199907/08/24 07/17/24 levothyroxine 137 mcg tablet [place] [address]/08/24 07/17/24 trazodone 100 mg tablet 100 mg PO 199907/08/24 07/17/24 Previous Rx's Medication Instructions Recorded furosemide 20 mg tablet 20 mg PO DAILY PRN edema #90 tabs 01/11/24 hydrochlorothiazide 25 mg tablet 25 mg PO DAILY 90 days #90 tabs 01/11/24 irbesartan 300 mg tablet 300 mg PO DAILY 90 days #90 tabs 01/11/24 omeprazole 20 mg capsule,delayed 20 mg PO DAILY PRN reflux 90 days 01/11/24 release #90 caps potassium chloride 20 mEq 20 meq PO DAILY PRN with lasix 90 01/11/24 tablet,extended release days #90 tabs pramipexole 0.5 mg tablet 0.5 mg PO BID 90 days #180 tabs 01/11/24 cyclobenzaprine 5 mg tablet 5 mg PO TID PRN muscle spasm 90 04/20/24 days #90 tabs diclofenac sodium 1 % topical gel 4 g topical QID #100 grams 06/21/24 (Voltaren Arthritis Pain) amlodipine 5 mg tablet 5 mg PO DAILY #90 tabs 07/08/24 aspirin 81 mg capsule 81 mg PO DAILY #90 caps 07/08/24 atenolol 25 mg tablet 12.5 mg (1/2 x 25 mg) PO DAILY 90 07/08/24 days #90 tabs atorvastatin 40 mg tablet 40 mg PO BEDTIME #90 tabs 07/08/24 tramadol 50 mg tablet 50 mg PO Q12H PRN pain #60 tabs 07/17/24 polyethylene glycol 3350 17 4 g PO DAILY #850 grams 07/26/24 gram/dose oral powder (Miralax) albuterol sulfate 90 mcg/actuation 1 inh inhalation QID PRN shortness 07/30/24 aerosol inhaler of breath or wheezing #6.7 grams fluticasone propionate 50 2 spray intranasal DAILY #16 grams 07/30/24 mcg/actuation nasal spray,suspension (Flonase Allergy Relief) nystatin 100,000 unit/gram topical 1 applic topical BID PRN rash 7 07/30/24 ointment days #30 grams nitroglycerin 0.4 mg sublingual 0.4 mg sublingual Q5M PRN chest 08/24/24 tablet pain #30 tabs Allergies Allergy/AdvReac Type Severity Reaction Status Date / Time adhesive tape Allergy Intermediate ALGY-Rash Verified 07/17/24 09:30 meperidine [From Demerol] Allergy Mild ALGY-RASH Verified 07/17/24 09:30 morphine Allergy Mild ALGY-RASH Verified 07/17/24 09:30 pantoprazole [From Protonix] Allergy Mild ALGY-RASH Verified 07/17/24 09:30 imipramine AdvReac Mild ADR-FLU Verified 07/17/24 09:30 LIKE SYMPTOMS promethazine [From Phenergan] AdvReac Mild ADR-RESTLESS Verified 07/17/24 09:30 LEGS celecoxib [From Celebrex] AdvReac ADR-INCREASED Verified 07/17/24 09:30 APPETITE lisinopril AdvReac ADR-COUGH Verified 07/17/24 09:30 Review of Systems 2 General: Reports: 10 or more systems reviewed and unremarkable except in HPI and below Card: Reports: chest pain GI: Reports: nausea PFSH ED 2 PFSH: Medical History Encounter for examination for admission to assisted living facility Left shoulder strain Morbid obesity with BMI of 45.0-49.9, adult Depression Right rotator cuff tear TAMARA positive Heart palpitations Fluid retention in legs CHF (congestive heart failure) Degenerative disk disease Cervical radiculopathy at C6 Hyperlipidemia Restless leg syndrome GERD (gastroesophageal reflux disease) Hypothyroidism Benign hypertension Surgical History H/O gastric sleeve 2011 S/P knee replacement S/P tonsillectomy and adenoidectomy S/P cholecystectomy S/P cataract surgery History of left mastoidectomy Hx of section S/P appendectomy H/O tubal ligation H/O tympanostomy H/O: hysterectomy H/O rhinoplasty History of carpal tunnel surgery H/O decompression of ulnar nerve H/O gastric bypass Family History Other Cancer Diabetes Social History Smoking and tobacco/nicotine status: never used tobacco/nicotine Second hand smoke exposure: No Alcohol intake: never Substance/Drug Use: never Adopted: No service: No Current occupational exposures/hazards: Yes Female Reproductive History: Spontaneous abortions: No Physical Exam 2 Const: COMMON NORMALS: no acute distress, patient oriented x3 and no limitations GENERAL APPEARANCE: cooperative and comfortable HENMT: COMMON NORMALS: normocephalic, atraumatic, Normal nasal mucous membranes and turbinates present, moist oral mucous membranes and oropharynx normal HEAD & SCALP: normal to inspection, normocephalic and atraumatic F ALEX & SINUS: normal facial exam NOSE: Normal nasal mucous membranes and turbinates present Eye: COMMON NORMALS: Equal, round and reactive pupils present, EOMs intact bilaterally and conjunctivae normal GENERAL EYE: appearance normal, both eyes and all related structures CONJUNCTIVA: Yes conjunctivae normal PUPIL: Yes Equal, round and reactive pupils present Neck/C-Spine: COMMON NORMALS: supple and no JVD Chest: COMMONS NORMALS: normal inspection of the chest Resp: COMMON NORMALS: normal respiratory effort and clear to auscultation bilaterally AUSCULTATION: clear to auscultation bilaterally Cardio: COMMON NORMALS: no JVD, regular rate, regular rhythm, No gallops present (Cardio), No murmurs present (Cardio) and No rub (Cardio) RATE: r egular rate RHYTHM: regular rhythm GI: COMMON NORMALS: Normal to inspection, nondistended, normoactive bowel sounds present, Soft to palpation and non-tender AUSCULTATION: Yes normoactive bowel sounds PALPATION: Yes Soft to palpation : COMMON NORMALS: Yes no CVA tenderness BLADDER/KIDNEY EXAM: Yes no CVA tenderness Back/Pelvis: COMMON NORMALS: no CVA tenderness and thoracic and lumbar spine normal to inspection Extremity: COMMON NORMALS: normal to inspection Neuro: COMMON NORMALS: patient oriented x3 and CN's II-XII intact bilaterally Psych: COMMON NORMALS: mental status grossly normal, Normal thought process present and cooperative THOUGHT PROCESS: Normal thought process present Skin: COMMON NORMALS: no rashes or lesions noted, turgor normal and no jaundice GENERAL SKIN EXAM: no rashes or lesions noted and turgor normal Course 2 Vital Signs: Vital signs: Vital Signs Temperature 98.5 F 08/24/24 17:48 Pulse Rate 57 L 08/24/24 21:30 Respiratory Rate 18 08/24/24 21:30 Blood Pressure 137/65 08/24/24 21:30 Pulse Oximetry 14 L 08/24/24 21:30 Oxygen Delivery Me thod Room Air 08/24/24 20:30 MDM - Chest Pain Medical Decision Making EKG revealed normal sinus rhythm with no ST segment abnormalities. Chest x-ray was normal. CBC and BMP were normal. BNP was 175. Initial troponin was 13 with a 2-hour level of 10.6. Patient remained asymptomatic throughout her ER stay. I did prescribe sublingual nitroglycerin tablets to be taken as needed. If pain does not resolve recommended she return to the emergency department otherwise follow-up for the angiogram as previously scheduled. She was discharged with her in stable condition. Lab Data 08/24/24 18:30 08/24/24 18:30 Radiology Impressions Chest X-Ray 08/24/24 18:15 IMPRESSION: 1. No acute findings. 2. Stable cardiac enlargement. Laboratory Results WBC 10.28 10^3/uL (3.29-11.43) 08/24/24 18:30 RBC 4.61 10^6/uL (3.85-5.65) 08/24/24 18:30 Hgb 12.30 g/dL (11.27-16.99) 08/24/24 18:30 Hct 39.3 % (36-47) 08/24/24 18:30 MCV 85.2 fl (85-98) 08/24/24 18:30 MCH 26.7 pg (27-33) L 08/24/24 18: MCHC 31.3 g/dL (30-55) 08/24/24 18: RDW 18.3 % (12.1-15.1) H 08/24/24 18: Plt Count 185 10^3/cmm (157-399) 08/24/24 18:30 MPV 9.5 fL (7.4-10.4) 08/24/24 18:30 Neut % (Auto) 64.5 % 08/24/24 18:30 Lymph % (Auto) 26.5 % 08/24/24 18:30 Crawford % (Auto) 7.3 % 08/24/24 18:30 Eos % (Auto) 1.0 % 08/24/24 18:30 Baso % (Auto) 0.3 % 08/24/24 18:30 Neut # (Auto) 6.64 10^3/uL (1.8-7.7) 08/24/24 18:30 Lymph # (Auto) 2.7 10^3/uL (0.8-4.8) 08/24/24 18:30 Crawford # (Auto) 0.8 10^3/uL (0.2-0.9) 08/24/24 18:30 Eos # (Auto) 0.1 10^3/uL (0.0-0.8) 08/24/24 18: Baso # (Auto) 0.0 10^3/uL (0.0-0.1) 08/24/24 18:30 Nucleated RBC % (auto) 0 % 08/24/24 18: Nucleated RBCs # 0.0 /100WBC 08/24/24 18: Sodium 137 mmol/L (136-145) 08/24/24 18:30 Potassium 4.0 mmol/L (3.5-5.1) 08/24/24 18:30 Chloride 98 mmol/L (98-107) 08/24/24 18:30 Carbon Dioxide 32 mmol/L (22-29) H 08/24/24 18:30 Anion Gap 11.0 (5-19) 08/24/24 18:30 BUN 13 mg/dL (8-23) 08/24/24 18:30 Creatinine 0.5 mg/dL (0.5-0.9) 08/24/24 18:30 GFR Calculation Not Reportable 08/24/24 18:30 Glucose 99 mg/dL (65-115) 08/24/24 18:30 Calculated Osmolality 284 mOsm/kg (285-295) L 08/24/24 18:30 Calcium 9.1 mg/dL (8.5-10.5) 08/24/24 18:30 Troponin T Baseline 13 ng/L (0-10) H 08/24/24 18:30 Troponin T 120 Minute 10.64 ng/L (0-10) H 08/24/24 20:34 Delta Troponin T -2.36 ABS# (0-10) L 08/24/24 20:34 NT-Pro-B Natriuret Pep 175 pg/mL (0-125) H 08/24/24 18:30 All radiology interpretation(s) finalized by discharge Discharge Plan Discharge Patient Disposition: Home Clinical Impression: Chest pain Qualifiers: Chest pain type: unspecified Qualified Code(s): R07.9 - Chest pain, unspecified Condition: Stable Prescriptions: New nitroglycerin 0.4 mg tablet, sublingual 0.4 mg sublingual Q5M PRN (Reason: chest pain) Qty: 30 0RF Rx Instructions: do not exceed 3 doses per episode No Action multivitamin Tablet 1 tab PO DAILY acetaminophen [Tylenol Extra Strength] 500 mg tablet 500 mg PO Q6H PRN (Reason: fever or pain) pramipexole 0.5 mg tablet 0.5 mg PO BID 90 Days Qty: 180 2RF hydrochlorothiazide 25 mg tablet 25 mg PO DAILY 90 Days Qty: 90 2RF furosemide 20 mg tablet 20 mg PO DAILY PRN (Reason: edema) Qty: 90 2RF irbesartan 300 mg tablet 300 mg PO DAILY 90 Days Qty: 90 2RF omeprazole 20 mg capsule,delayed release(DR/EC) 20 mg PO DAILY PRN (Reason: reflux) 90 Days Qty: 90 2RF potassium chloride 20 mEq tablet extended release 20 meq PO DAILY PRN (Reason: with lasix) 90 Days Qty: 90 2RF loratadine [Allergy Relief (loratadine)] 10 mg tablet 10 mg PO DAILY cyclobenzaprine 5 mg tablet 5 mg PO TID PRN (Reason: muscle spasm) 90 Days Qty: 90 1RF diclofenac sodium [Voltaren Arthritis Pain] 1 % gel 4 g topical QID Qty: 100 2RF Rx Instructions: apply to single knee, ankle, foot; for foot includes sole/toes/top of foot tramadol 50 mg tablet 50 mg PO Q12H PRN (Reason: pain) Qty: 60 0RF polyethylene glycol 3350 [Miralax] 17 gram/dose powder 4 g PO DAILY Qty: 850 2RF fluticasone propionate [Flonase Allergy Relief] 50 mcg/actuation spray,suspension 2 spray intranasal DAILY Qty: 16 0RF Rx Instructions: administer into each nostril albuterol sulfate 90 mcg/actuation HFA aerosol inhaler 1 inh inhalation QID PRN (Reason: shortness of breath or wheezing) Qty: 6.7 0RF nystatin 100,000 unit/gram ointment 1 applic topical BID PRN (Reason: rash) 7 Days Qty: 30 0RF levothyroxine 137 mcg tablet 137 mcg PO 0630 trazodone 100 mg tablet 100 mg PO 2000 escitalopram oxalate 20 mg tablet 20 mg PO 1999 atorvastatin 40 mg Tablet 40 mg PO BEDTIME Qty: 90 0RF aspirin 81 mg capsule 81 mg PO DAILY Qty: 90 0RF amlodipine 5 mg tablet 5 mg PO DAILY Qty: 90 0RF atenolol 25 mg tablet 12.5 mg PO DAILY 90 Days Qty: 90 2RF Discharge Orders: Discharge ED (Routine); Ordered 08/24/24 Ordered By: Lee Jerez Referrals: Kapil Gonzalez MD [Primary Care Provider] - Patient Instructions: Chest Pain (ED) Activity Restrictions/Additional Instructions: Take the nitroglycerin as needed for chest pain. If the pain does not resolve return to the emergency department. Follow-up for your angiogram as scheduled. Coding Level of Care Code ED Asset Management Lead for Hossein Doe
== END 2024-08-24 21:58 | disposition home or self-care (01) ==
PROVIDERS: Emergency Provider Emergency Medicine; PCP Family Medicine Adult Medicine
DX: R07.9 Chest pain, unspecified (principal); Z79.82 Long term (current) use of aspirin; I11.0 Hypertensive heart disease with heart failure; I50.9 Heart failure, unspecified
CPT/HCPCS: 36415; 71045; 80048; 83880; 84484; 85025; 93005; 99285

== ENCOUNTER 2024-09-03 05:43 | Outpatient (CLI) | payer MEDICARE, MEDICAID, SELFPAY ==
[2024-09-03] VITALS (32 sets, daily range): BP systolic 109–162; BP diastolic 45–114; PULSE 57–86; RESP 13–27; TEMP 36.9–37; O2SAT 92–100; BMI 49.8
--- NOTE | 2024-09-03 06:00 | XACV_ITS ---
Ht: 155 cm Wt: 120 kg BSA: 2.35 m2 Gender: Female : 1950 Any Known Allergies: Other Exam Priority: Routine Procedure(s): Procedure Description: Diagnostic procedure Procedure Description: PCI procedure Procedure Description: Drug Eluting Coronary Stent Procedure Description: PTCA Procedure Description: Miscellaneous Procedure Description: ACT Procedure Description: Coronary Angiography Yulissa BARNES; Diagnostic Cath Status: Elective Diagnostic Findings * Left Main has no disease. * Proximal Left Anterior Descending: mild 40% stenosis, RAJ: 3 flow. * Mid Left Anterior Descending: mild 40% stenosis, RAJ: 3 flow. * Distal Left Anterior Descending: moderate 50% stenosis, RAJ: 3 flow. * Mid Right Coronary Artery to Distal Right Coronary Artery: significant 80% stenosis, RAJ: 3 flow. * Distal Circumflex: moderate 50% stenosis, RAJ: 3 flow. * Third Obtuse Marginal Branch Segment: significant 80% stenosis, RAJ: 3 flow. * Coronary angiography shows right dominance. PCI Status: Urgent PCI Indication: NSTE - ACS Interventional Findings * Mid Right Coronary Artery to Distal Right Coronary Artery: 80% stenosis treated with a AB TREK 2.50X25 RX BALLOON, SHARON Arredondo NUBIA 3.0X38 QUINCY, SHARON Arredondo NUBIA 3.5X12 QUINCY, and MDT CLAUDIA EUPHORA RX 3.01M48PO BALLOON. 0% residual stenosis, RAJ: 3 flow. Conclusions 1. There is significant coronary artery disease with three vessel disease. 2. Mid Right Coronary Artery to Distal Right Coronary Artery was treated with a Balloon, Drug Eluting Stent, Drug Eluting Stent, and Balloon. Recommendations * 1-Return to inpatient for close monitoring and routine cath care 2-Risk factor modification for secondary prevention 3-Statin and aspirin 81 mg life-long, if tolerated 4-Continue Plavix 75mg p.o. daily for at least one year. We will assess at the end of one year again to continue if further or not 5-Continue optimal medical management 6-Follow up with Dr. Duenas in four weeks and your primary care in 10 days. Interventional RX Recommendation: PCI w/o planned CABG Diagnostic RX Recommendation: PCI w/o planned CABG Pressures Phase:Rest AO : 126 / 52 ( 79 ) @ 8:04:00 AM 138 / 76 ( 100 ) @ 8:18:00 AM 130 / 70 ( 94 ) @ 8:53:00 AM Clinical Evaluation EBL: 5mL-10mL Procedural Details Procedure Consent Obtained. Pre-Procedure Time Out. Identified patient by full name and date of as verbalized by the patient/guarantor. Does the consent match the physician's order: Yes. Accurate & Complete Informed Consent: Yes. Inpatient/Outpatient History & Physical on Chart: Yes. If H&P is completed, is and addenduem needed: No; If yes, is the addendum complete: N/A. Visualize and Verify Site with Patient/Guarantor: N/A. Relevant Radiology Images available: N/A. Pre-op teaching completed and patient verbalized understanding. The risks, benefits, and alternatives of sedation and/or procedure were discussed by physician. The patient agrees to continue. Procedure started. [facility] Clinical Fraility Score: 4: Vulnerable. Web Content Executive Indications: Worsening Angina, abnormal stress test. Chest Pain Symptom Assessment: Typical Angina Symptoms. Cardiovascular Instability: No. Correct patient, site and procedure confirmed by cath team. PERRLA. Strong, equal hand ip technology transactions attorney bilaterally. Lungs clear x 5 lobes. IV Site on Arrival: 20 gauge in the left anticubital. IV Fluids: 0.9% NaCl at KVO. 0 mL infused prior to landscape and yardwork laborer. Pre Procedural Pulses: bilateral dorsalis pedis was Doppled. Pre Procedural Pulses: bilateral posterior tibial was Doppled. Pre Procedural Pulses: right radial was 2+. Oxygen started at 2liters/min via nasal canula. right radial was prepped with chloroprep then draped in the usual sterile fashion. right groin was prepped with chloroprep then draped in the usual sterile fashion. Baseline sample Acquired. HR: 67 BPM. Physician notified. Equipment: 6F - Radial. Cardiac Cath Pack. ACIST Manifold Kit Model BT 2000. Heparinized Saline (2 units/mL), 1000 mL bag. Physician arrived. Physician scrubbed in. Immediate Pre-Procedure Time Out. Correct Patient: Yes; Correct Procedure: Yes; Correct Site: Yes; Correct Patient Position: Yes; Correct Supplies: Yes; Dried Flammable Prep: Yes; Blood Products Available: N/A;. A 20 gauge IV was started in the left anticubital using aseptic technique. Lidocaine 1% infiltrated to the right radial. Arterial access obtained. A 5 eritrean TIG catheter in over wire. Multiple views taken of left coronary artery. Catheter redirected to the RCA. Multiple views taken of right coronary artery. Inventory is CRD 6FR JR 4 GUIDE 100cm. Catheter removed over the exchange wire. Inventory is AB BMW Guide Wire .014 190cm. 6 eritrean JR 4 guide catheter was inserted over the wire. Runthrough guidewire was advanced through the guide catheter to lesion in the PDA. BMW guidewire was advanced through the guide catheter to lesion in the accute marginal RCA. AP pads applied to pt. ACT drawn. Results 251 seconds. Therapeutic limits - pre-heparin administration 90-150 seconds and monitoring heparin during a vascular procedure >250 seconds. Balloon inserted to lesion in the mid RCA. Inflation number : 1 A AB TREK 2.50X25 RX BALLOON was prepped and advanced across the Mid RCA , then inflated to 14 REINIER for 0:12 seconds. Inflation number: 2 The AB TREK 2.50X25 RX BALLOON was reinflated across the Mid RCA, to 14 REINIER for 0:07 seconds. Balloon out. Results checked. IV bolus stopped. Running at 100 ml/hr now. Inflation Number : 3 A SHARON Arredondo NUBIA 3.0X38 QUINCY -Lot Number# [id number] exp date 05/05/2026 was prepped and advanced across the Mid RCA. The stent was deployed at 12 REINIER for 0:16 seconds. Stent balloon out over wire. Family updated. Results checked. Inflation number : 1 A AB MINI TREK 2.00X12 RX BALLOON was prepped and advanced across the 1st Ac Sharri , then inflated to 8 REINIER for 0:07 seconds. Balloon out over BMW wire. BMW wire out. Inflation Number : 4 A MDT R NUBIA 3.5X12 QUINCY -Lot Number# [id number] exp date 12/05/2024 was prepped and advanced across the Mid RCA. The stent was deployed at 14 REINIER for 0:14 seconds. Stent balloon out over Runthrough wire. Results checked. Inflation number : 5 A MDT NC EUPHORA RX [id number] BALLOON was prepped and advanced across the Mid RCA , then inflated to 10 REINIER for 0:14 seconds. Inflation number: 6 The MDT NC EUPHORA RX [id number] BALLOON was reinflated across the Mid RCA, to 6 REINIER for 0:09 seconds. Inflation number: 7 The MDT NC EUPHORA RX [id number] BALLOON was reinflated across the Mid RCA, to 12 REINIER for 0:16 seconds. Inflation number: 8 The MDT NC EUPHORA RX [id number] BALLOON was reinflated across the Mid RCA, to 12 REINIER for 0:14 seconds. Inflation number: 9 The MDT NC EUPHORA RX [id number] BALLOON was reinflated across the Mid RCA, to 14 REINIER for 0:14 seconds. Balloon out. ACT drawn. Results 294 seconds. Therapeutic limits - pre-heparin administration 90-150 seconds and monitoring heparin during a vascular procedure >250 seconds. Wire out. Results checked. Guide catheter out. Physician scrubbed out. A TR Band was successful obtaining hemostatsis at the Right Radial artery insertion site. TR band placed. Hemostasis obtained. Post Procedure: Pulses reassessed and unchanged. PERRLA. Strong, equal hand ip technology transactions attorney bilaterally. No VTE prophylaxis required. Total IV fluids: 133 mL. Medication's Wasted: Nitro = 49.4 mg. Medication's Wasted: Lidocaine 1% = 18 mL. Contrast type used: Omnipaque 300 mgI/mL, 500 mL bottle. Medication's Wasted: Heparin = 1000 units. Medication's Wasted: Other = versed 1 mg. Medication's Wasted: Other = fentanyl 25 mcg. Post-op diagnosis: Severe mid RCA stenosis. Complications: none. Estimated blood loss: 5mL-10mL. Responsiveness - Normal response to verbal stimuli; alert and oriented, PERRLA. Airway - Unaffected, no intervention required; spontaneous ventilation. Circulation: W/N/L, pulses unchanged. Nausea/Vomiting: No. Procedure completed. Patient transferred by bed to CPRU. Vital chart was stopped. Access Site Site: Right Radial artery Sheath Size: 6 Fr Hemostasis Method: TR Band Hemostasis Success: Successful Procedure Medications Start: 7:55 AM Stop: 7:55 AM Medication: Versed Amount: 1 mg Route: I.V. Start: 7:56 AM Stop: 7:56 AM Medication: Fentanyl Amount: 25 mcg Route: I.V. Start: 8:01 AM Stop: 8:01 AM Medication: Nitrogylcerin Amount: 200 mcg Route: I.A. Start: 8:04 AM Stop: 8:04 AM Medication: Heparin Amount: 5000 units Route: I.V. Start: 8:09 AM Stop: 8:09 AM Medication: Versed Amount: 1 mg Route: I.V. Start: 8:23 AM Stop: 8:23 AM Medication: Fentanyl Amount: 25 mcg Route: I.V. Start: 8:27 AM Stop: 8:27 AM Medication: Heparin Amount: 4000 units Route: I.V. Start: 8:28 AM Stop: 8:28 AM Medication: Versed Amount: 1 mg Route: I.V. Start: 8:30 AM Stop: 8:30 AM Medication: 0.9% Saline Amount: 250 ml Route: I.V. bolus Start: 8:31 AM Stop: 8:31 AM Medication: Nitrogylcerin Amount: 200 mcg Route: I.C. Start: 8:52 AM Stop: 8:52 AM Medication: Nitrogylcerin Amount: 200 mcg Route: I.C. Start: 8:56 AM Stop: 8:56 AM Medication: Fentanyl Amount: 25 mcg Route: I.V. Start: 9:00 AM Stop: 9:00 AM Medication: Heparin Amount: 1000 units Route: I.V. Start: 9:12 AM Stop: 9:12 AM Medication: Brilinta Amount: 180 mg Route: P.O. I, the attending physician, have reviewed and verified all procedure medications. Yes, all medications given per verbal order History/Risk Factors Hypertension: Yes Dyslipidemia: Yes Peripheral Arterial Disease (PAD): No Myocardial Infarction (LA): No Obesity: Yes Renal Disease: No Tobacco Use: Never Prior Interventions PCI: No CABG: No Valve Surgery: No Report Signatures Finalized by Sanchez Duenas MD on 09/21/2024 02:07 AM
[2024-09-03] MEDS: diphenhydrAMINE 50 mg Capsule PO (06:28)
[2024-09-03] MEDS: aspirin 325 mg Tablet PO (06:28)
--- NOTE | 2024-09-03 07:50 | W.PM.OPSFHP ---
Same Day Surgery H&P Indication for Procedure/HPI DATE OF PROCEDURE: September 03, 2024 CHIEF COMPLAINT/INDICATIONFOR SURGICAL PROCEDURE: Worsening of chest pain suggestive of angina Abnormal stress test PREOP DIAGNOSIS: Chest pain/abnormal stress test PLANNED PROCEDURE: Operation Date: 09/03/24 07:00 Proposed Procedures p Cardiac Catheterization(Left) - Sanchez Duenas MD 73-year-old female past medical history significant for hypertension hyperlipidemia for worsening of chest pain along with shortness of breath underwent stress test which turned out to be abnormal in LAD territory it is the reason patient is here for left heart catheterization. Patient has been explained all risk-benefit and alternative for the procedure. She understand 2% risk of stroke major minor bleed. She understand 68% risk for contrast induced nephropathy, infection hematoma minor bleeding and bruising. She would like to proceed with it. Medications/Allergies* Home Medications Medication Instructions Recorded Confirmed Type acetaminophen 500 mg tablet 500 mg PO Q6H PRN fever or pain 07/26/22 09/03/24 History (Tylenol Extra Strength) multivitamin 1 tab PO DAILY 10/06/22 09/03/24 History escitalopram oxalate 20 mg tablet 20 mg PO 199907/08/24 09/03/24 History levothyroxine 137 mcg tablet [place] [address]/08/24 09/03/24 History trazodone 100 mg tablet 100 mg PO 199907/08/24 09/03/24 History famotidine 20 mg tablet 20 mg PO BID 09/03/24 09/03/24 History hydrocortisone 1 % topical cream 1 applic topical TID PRN Itching 09/03/24 09/03/24 History vitamin B complex 1 cap PO DAILY 09/03/24 09/03/24 History vitamin E (dl, acetate) 180 mg 180 mg PO DAILY 09/03/24 09/03/24 History (400 unit) capsule Allergies/Adverse Reactions Allergy/AdvReac Type Severity Reaction Status Date / Time adhesive tape Allergy Intermediate ALGY-Rash Verified 07/17/24 09:30 meperidine [From Demerol] Allergy Mild ALGY-RASH Verified 07/17/24 09:30 morphine Allergy Mild ALGY-RASH Verified 07/17/24 09:30 pantoprazole [From Protonix] Allergy Mild ALGY-RASH Verified 07/17/24 09:30 imipramine AdvReac Mild ADR-FLU Verified 07/17/24 09:30 LIKE SYMPTOMS promethazine [From Phenergan] AdvReac Mild ADR-RESTLESS Verified 07/17/24 09:30 LEGS celecoxib [From Celebrex] AdvReac ADR-INCREASED Verified 07/17/24 09:30 APPETITE lisinopril AdvReac ADR-COUGH Verified 07/17/24 09:30 Current Medications: Generic Name Dose Route Start Last Admin Trade Name Freq PRN Reason Stop Dose Admin Sodium Chloride 1,000 mls @ 50 mls/hr 09/03/24 06:00 09/03/24 06:28 Sodium Chloride 0.9% IV 09/04/24 01:59 Not Given .Q20H ONE Pertinent History/Comorbid Conditions* Medical History (Updated 08/24/24 @ 21:47 by Lee Jerez MD) Encounter for examination for admission to assisted living facility Left shoulder strain Morbid obesity with BMI of 45.0-49.9, adult Depression Right rotator cuff tear TAMARA positive Heart palpitations Fluid retention in legs CHF (congestive heart failure) Degenerative disk disease Cervical radiculopathy at C6 Hyperlipidemia Restless leg syndrome GERD (gastroesophageal reflux disease) Hypothyroidism Benign hypertension Surgical History (Updated 07/09/24 @ 00:01 by MANASA Iverson) H/O gastric sleeve 2011 S/P knee replacement S/P tonsillectomy and adenoidectomy S/P cholecystectomy S/P cataract surgery History of left mastoidectomy Hx of section S/P appendectomy H/O tubal ligation H/O tympanostomy H/O: hysterectomy H/O rhinoplasty History of carpal tunnel surgery H/O decompression of ulnar nerve H/O gastric bypass Family History (Updated 02/04/21 @ 08:26 by Donna Crespo LPN) Diabetes Cancer Social History Smoking and tobacco/nicotine status: never used tobacco/nicotine Second hand smoke exposure: No Alcohol intake: never Substance/Drug Use: never Adopted: No service: No Current occupational exposures/hazards: Yes Pertinent Exam Findings alert, oriented x 3, clear to auscultation bilaterally, regular rate & rhythm and operative site marked Conscious Sedation Assessment PATIENT ASSESSED PRIOR TO SEDATION, WITH NO CHANGE NOTED: Yes AIRWAY EVAL/ANESTHESIA PLAN: ASA II, Risks, benefits & alternatives of sedation and/or procedure discussed and Patient agrees to continue as planned Recommendations Surgery/Procedure today Other Plans: Will proceed with left heart catheterization/PCI if indicated for Coding Level of Care Code Acute Code for [place]
--- NOTE | 2024-09-03 09:36 | PC.NURSE ---
Addendum entered by Poly Garcia RN 09/03/24 10:15: Replaced second TR band to to hematoma formation. patient tolerating this time around. Will continue to monitor. Original Note: Patient received from tanbark laborer via bed. Patient is s/p [facility] with right radial access and tr band in place. TAM Flores noted possible hematoma formation proximal to the TR band. Second TR band placed. Assisted patient up to bathroom. Upon return patient c/o throbbing to site, dark hand and cool to touch. Removed 2nd TR band. No evidence remains of hematoma formation. Instructed patient on site care. Patient verbalized understanding. Will continue to monitor.
[2024-09-03] MEDS: sodium chloride 0.9% 1,000 ML 100 ML IV (10:07)
--- NOTE | 2024-09-03 11:11 | PC.NURSE ---
Addendum entered by Poly Garcia RN 09/03/24 11:14: NEYDA Major did assess right wrist while in room. She feels hematoma resolving presently. Patient denies any altered sensation at this time. Original Note: Patient c/o tightness to her breathing. Feels like I really have to take a deep breath to get enough air. Informed NEYDA Major which was in to see patient at this time. Decreased fluids to 75ml per hour. PARACHUTE INSPECTOR to discuss with Dr Duenas to restart home medications. BP is elevated. Patient currently has SpO2 98-100% on room air.
[2024-09-03] MEDS: amlodipine 5 mg Tablet PO (12:12)
[2024-09-03] MEDS: losartan 50 mg Tablet 100 MG PO (12:12)
--- NOTE | 2024-09-03 13:30 | PC.NURSE ---
Second TR band removed at this time. Observed hematoma to be smaller and less painful. Significant bruising noted.
[2024-09-03] MEDS: albuterol 2.5 mg/3 mL Neb INHALATION (14:05)
--- NOTE | 2024-09-03 14:20 | PC.NURSE ---
Initiated TR band removal at 1130 removing 2ml and 2ml from each TR band in place to right wrist. Both TR Bands removed at this time. Hematoma resolving with bruising noted. Patient requested ice pack for site which says, this helps alot. No further s/s of bleeding or additional hematoma observed. Covered site with 2xx and coban. Instructed patient on site care and restrictions. Patient verbalized complete understanding. Patient reports all SOB resolved. Will continue to monitor.
--- NOTE | 2024-09-03 16:38 | PC.NURSE ---
Dressing in place to right wrist remains c,d,i. Bruising observed. Hematoma resolved. No other s/s of bleeding or further hematoma formation observed. Patient denies pain to site. Will continue to monitor.
[2024-09-03] MEDS: pramipexole 0.25 mg Tablet 0.5 MG PO (17:28)
[2024-09-03] MEDS: ticagrelor 90 mg Tablet PO (17:28)
[2024-09-03] MEDS: famotidine 20 mg Tablet PO (17:28)
[2024-09-03] MEDS: acetaminophen 325 mg Tablet 650 MG PO (20:30)
[2024-09-03] MEDS: escitalopram 10 mg Tablet 20 MG PO (20:31)
[2024-09-03] MEDS: atorvastatin 40 mg Tablet PO (20:31)
[2024-09-03] MEDS: temazepam 15 mg Capsule PO (21:33)
[2024-09-04 03:47] VITALS: BP 142/71; PULSE 67; RESP 19; O2SAT 98
[2024-09-04 03:55] LABS: Basophils % 0.2 %; Eosinophils # 0.1 10^3/uL (0.0-0.8); Eosinophils % 0.8 %; Hematocrit 42.4 % (36-47); Lymphocytes # 2.2 10^3/uL (0.8-4.8); Lymphocytes % 25.5 %; Mean Corpuscular HGB Conc 28.3 g/dL (30-55); Mean Corpuscular Hemoglobin 26.7 pg (27-33); Mean Corpuscular Volume 94.4 fl (85-98); Mean Platelet Volume 9.5 fL (7.4-10.4); Monocytes # 0.6 10^3/uL (0.2-0.9); Monocytes % 7.5 %; Neutrophils # 5.58 10^3/uL (1.8-7.7); Neutrophils % 65.8 %; Nucleated Red Blood Cells % 0 %; Platelet Count 181 10^3/cmm (157-399); Red Blood Count 4.49 10^6/uL (3.85-5.65); Red Cell Distribution Width 18.8 % (12.1-15.1)
[2024-09-04 04:18] LABS: Blood Urea Nitrogen 10 mg/dL (8-23); Calcium 8.8 mg/dL (8.5-10.5); Carbon Dioxide 26 mmol/L (22-29); Chloride 102 mmol/L (98-107); Glucose 97 mg/dL (65-115); Osmolality Calculated 283 mOsm/kg (285-295); Sodium 137 mmol/L (136-145)
[2024-09-04 04:20] LABS: Anion Gap 13.1 (5-19); Potassium 4.1 mmol/L (3.5-5.1)
[2024-09-04 06:00] VITALS: PULSE 65
[2024-09-04] MEDS: levothyroxine 137 mcg Tablet PO (06:23)
[2024-09-04 07:32] VITALS: BP 124/55; PULSE 74; RESP 20; TEMP 36.7; O2SAT 98
[2024-09-04] MEDS: amlodipine 5 mg Tablet PO (07:42)
[2024-09-04 07:43] VITALS: BP 124/55
[2024-09-04] MEDS: famotidine 20 mg Tablet PO (07:43)
[2024-09-04] MEDS: ticagrelor 90 mg Tablet PO (07:43)
[2024-09-04] MEDS: aspirin 81 mg EC Tablet PO (07:43)
[2024-09-04] MEDS: pramipexole 0.25 mg Tablet 0.5 MG PO (07:43)
[2024-09-04] MEDS: losartan 50 mg Tablet 100 MG PO (07:43)
--- NOTE | 2024-09-04 09:30 | PM.DCS ---
Discharge Providers Date of Admission: 09/03/2024 Date of Discharge: September 04, 2024 Attending Provider at Admission: Sanchez Duenas MD Attending Provider at Discharge: Sanchez Duenas MD Consults: none Primary Care Provider: Kapil Gonzalez MD Diagnoses at Discharge Discharge Diagnosis (1) Coronary artery disease: Details from hospital stay: S/P PCI with QUINCY to the mid to distal RCA. Continue Brilinta and Aspirin for at least 1 year. Status: Acute Qualifiers: Associated angina: with stable angina Coronary Disease-Associated Artery/Lesion type: mus[place]og[place] artery [place] vs. transplanted heart: mus[place]ogee heart Qualified Code(s): I25.118 - Atherosclerotic heart disease of [place] coronary artery with other forms of angina pectoris (2) Benign hypertension: Details from hospital stay: Resume home medications. Continue to monitor this. Status: Acute (3) Hyperlipidemia: Details from hospital stay: Continue lifestyle changes low fat/low cholesterol diet with exercise. Continue Atorvastatin 40 mg daily. Cholesterol levels need to be rechecked in the future. Status: Acute Qualifiers: Hyperlipidemia type: mixed hyperlipidemia Qualified Code(s): E78.2 - Mixed hyperlipidemia (4) Venous insufficiency: Details from hospital stay: Continue compression stockings. Patient takes low dose 20 mg furosemide daily. Status: Acute (5) Hypertension: Details from hospital stay: Resume home medications. Status: Acute Qualifiers: Hypertension type: primary hypertension Qualified Code(s): I10 - Essential (primary) hypertension Other Information Additional DC diagnoses/information: Patient to continue Brilinta and aspirin for at least 1 year monitor for and report signs or symptoms of bleeding will follow-up in the clinic in [address] Duenas at 3 months. Reason for Visit Reason for Visit: R94.39 Brief History: 73-year-old female past medical history significant for hypertension hyperlipidemia for worsening of chest pain along with shortness of breath underwent stress test which turned out to be abnormal in LAD territory it is the reason patient is here for left heart catheterization. Hospital Course Hospital Course Patient underwent left heart cath with PCI to the mid to distal RCA with DESx1. Patient tolerated well. On discharge, did have some bruising to the right wrist, but this was mild without complication. Physical Exam Narrative: GENERAL: Patient is alert, awake and oriented x3. HEART: Regular S1 and S2. No murmur, rub or gallop. LUNGS: Clear to auscultate bilaterally. CENTRAL NERVOUS SYSTEM: Grossly nonfocal. EXTREMITIES: Lower extremities with out edema bilaterally. Skin: Right radial 1+ left 2+, small amount of bruising to the right wrist, soft, nontender, full function, warm with good capillary refill Discharge Data Studies Completed and Pending Pending at discharge Category Date Time Status SASH INSTALLER request for service Routine Exams 09/03/24 06:00 Taken Laboratory Results WBC 8.50 10^3/uL (3.29-11.43) 09/04/24 03:35 RBC 4.49 10^6/uL (3.85-5.65) 09/04/24 03:35 Hgb 12.00 g/dL (11.27-16.99) 09/04/24 03:35 Hct 42.4 % (36-47) 09/04/24 03:35 MCV 94.4 fl (85-98) 09/04/24 03:35 MCH 26.7 pg (27-33) L 09/04/24 03:35 MCHC 28.3 g/dL (30-55) L 09/04/24 03:35 RDW 18.8 % (12.1-15.1) H 09/04/24 03:35 Plt Count 181 10^3/cmm (157-399) 09/04/24 03:35 MPV 9.5 fL (7.4-10.4) 09/04/24 03:35 Neut % (Auto) 65.8 % 09/04/24 03:35 Lymph % (Auto) 25.5 % 09/04/24 03:35 Yancey % (Auto) 7.5 % 09/04/24 03:35 Eos % (Auto) 0.8 % 09/04/24 03:35 Baso % (Auto) 0.2 % 09/04/24 03:35 Neut # (Auto) 5.58 10^3/uL (1.8-7.7) 09/04/24 03:35 Lymph # (Auto) 2.2 10^3/uL (0.8-4.8) 09/04/24 03:35 [place]y # (Auto) 0.6 10^3/uL (0.2-0.9) 09/04/24 03:35 Eos # (Auto) 0.1 10^3/uL (0.0-0.8) 09/04/24 03:35 Baso # (Auto) 0.0 10^3/uL (0.0-0.1) 09/04/24 03:35 Nucleated RBC % (auto) 0 % 09/04/24 03:35 Nucleated RBCs # 0.0 /100WBC 09/04/24 03:35 Sodium 137 mmol/L (136-145) 09/04/24 03:35 Potassium 4.1 mmol/L (3.5-5.1) 09/04/24 03:35 Chloride 102 mmol/L (98-107) 09/04/24 03:35 Carbon Dioxide 26 mmol/L (22-29) 09/04/24 03:35 Anion Gap 13.1 (5-19) 09/04/24 03:35 BUN 10 mg/dL (8-23) 09/04/24 03:35 Creatinine 0.4 mg/dL (0.5-0.9) L 09/04/24 03:35 GFR Calculation Not Reportable 09/04/24 03:35 Glucose 97 mg/dL (65-115) 09/04/24 03:35 Calculated Osmolality 283 mOsm/kg (285-295) L 09/04/24 03:35 Calcium 8.8 mg/dL (8.5-10.5) 09/04/24 03:35 Procedures Performed Left heart catheterization with PCI to the mid to distal RCA with a drug-eluting stent Vitals Last Vital Signs Temp 98.1 F 09/04/24 07:32 Pulse 74 09/04/24 07:32 Resp 20 H 09/04/24 07:32 BP 124/55 09/04/24 07:43 Pulse Ox 98 09/04/24 07:32 O2 Del Method Room Air 09/04/24 08:00 Discharge Plan Discharge Patient Disposition: Home Prescriptions: New ticagrelor 90 mg tablet 90 mg PO BID 90 Days Qty: 180 3RF Continued multivitamin Tablet 1 tab PO DAILY acetaminophen [Tylenol Extra Strength] 500 mg tablet 500 mg PO Q6H PRN (Reason: fever or pain) pramipexole 0.5 mg tablet 0.5 mg PO BID 90 Days Qty: 180 2RF hydrochlorothiazide 25 mg tablet 25 mg PO DAILY 90 Days Qty: 90 2RF furosemide 20 mg tablet 20 mg PO DAILY PRN (Reason: edema) Qty: 90 2RF irbesartan 300 mg tablet 300 mg PO DAILY 90 Days Qty: 90 2RF omeprazole 20 mg capsule,delayed release(DR/EC) 20 mg PO DAILY PRN (Reason: reflux) 90 Days Qty: 90 2RF potassium chloride 20 mEq tablet extended release 20 meq PO DAILY PRN (Reason: with lasix) 90 Days Qty: 90 2RF cyclobenzaprine 5 mg tablet 5 mg PO TID PRN (Reason: muscle spasm) 90 Days Qty: 90 1RF diclofenac sodium [Voltaren Arthritis Pain] 1 % gel 4 g topical QID Qty: 100 2RF Rx Instructions: apply to single knee, ankle, foot; for foot includes sole/toes/top of foot tramadol 50 mg tablet 50 mg PO Q12H PRN (Reason: pain) Qty: 60 0RF polyethylene glycol 3350 [Miralax] 17 gram/dose powder 4 g PO DAILY Qty: 850 2RF fluticasone propionate [Flonase Allergy Relief] 50 mcg/actuation spray,suspension 2 spray intranasal DAILY Qty: 16 0RF Rx Instructions: administer into each nostril albuterol sulfate 90 mcg/actuation HFA aerosol inhaler 1 inh inhalation QID PRN (Reason: shortness of breath or wheezing) Qty: 6.7 0RF nystatin 100,000 unit/gram ointment 1 applic topical BID PRN (Reason: rash) 7 Days Qty: 30 0RF nitroglycerin 0.4 mg tablet, sublingual 0.4 mg sublingual Q5M PRN (Reason: chest pain) Qty: 30 0RF Rx Instructions: do not exceed 3 doses per episode levothyroxine 137 mcg tablet 137 m[place] PO 0630 trazodone 100 mg tablet 100 mg PO 1999 escitalopram oxalate 20 mg tablet 20 mg PO 1999 atorvastatin 40 mg Tablet 40 mg PO BEDTIME Qty: 90 0RF aspirin 81 mg capsule 81 mg PO DAILY Qty: 90 0RF amlodipine 5 mg tablet 5 mg PO DAILY Qty: 90 0RF atenolol 25 mg tablet 12.5 mg PO DAILY 90 Days Qty: 90 2RF famotidine 20 mg Tablet 20 mg PO BID hydrocortisone 1 % Cream 1 applic TOPICAL TID PRN (Reason: Itching) vitamin B complex Capsule 1 cap PO DAILY vitamin E (dl, acetate) 180 mg (400 unit) Capsule 180 mg PO DAILY Discharge Orders: Discharge Order (Routine); Ordered 09/04/24 Ordered By: Moriah Gregg Referrals: Kapil Gonzalez MD [Primary Care Provider] - 09/18/24 1:00 pm (Dr. Byrnes is out for office, this appointment will be with his RELIEF PILOT. ) Cecy Oconnor FNP [Nurse Practitioner] - 09/26/24 10:45 am Diet: Advance as tolerated and Cardiac Activity: Increase activity as tolerated and Limit activity as instructed Patient Instructions: Coronary Angioplasty (DC), Post Angiogram Home Care Instructions Activity Restrictions/Additional Instructions: No lifting more than a gallon of milk for 3 days with right upper extremity. Monitor for and report worsening swelling, pain, bleeding, or bruising. Discharge Date/Time: 09/04/24 09:27 Discharge Attestations Time Spent in Discharge Care*: greater than 30 min Quality Metrics Clinical Quality Measures [ No reported AMI, CVA or VTE this stay] Coding Level of Care Code Acute Code for Chg Fwd Diagnoses Coronary artery disease of [place] artery of [place] heart with stable angina pectoris I25.118 Associated angina: with stable angina Coronary Disease-Associated Artery/Lesion type: [place] artery [place] vs. transplanted heart: [place] heart Benign hypertension I10 Mixed hyperlipidemia E78.2 Hyperlipidemia type: mixed hyperlipidemia Venous insufficiency I87.2 Primary hypertension I10 Hypertension type: primary hypertension
--- NOTE | 2024-09-04 09:40 | PC.NURSE ---
Patient discharged to home. Instruction provided regarding new medication, follow up appointments and site care. patient verbalized complete understanding. IV removed intact prior to discharge. Patient taken by wheelchair to meet daughter at the ENT clinic as patient has 10am appointment. Patient denies pain or needs at this time. No distress observed. All belongings taken with patient.
== END 2024-09-04 09:27 | disposition home or self-care (01) ==
LOC: CCL 05:47 → CSU 09:42
PROVIDERS: PCP Family Medicine Adult Medicine; Visit Provider Internal Medicine Cardiovascular Disease
DX: I25.10 Atherosclerotic heart disease of native coronary artery without angina pectoris (principal); I10 Essential (primary) hypertension; E78.5 Hyperlipidemia, unspecified; E66.9 Obesity, unspecified; Z68.42 Body mass index [BMI] 45.0-49.9, adult
CPT/HCPCS: 36415; 80048; 85025; 85347; 93454; 94640; 94660; 96374; 99152; 99153; C1725; C1769; C1874; C1887; C1894; C9600; J1644; J2250; J3010; J3490; J7030; J7613; Q0163; Q9967

== ENCOUNTER 2024-09-07 07:24 | Emergency (ER) | payer MEDICARE, MEDICAID, SELFPAY ==
[2024-09-07 07:25] VITALS: BP 137/62; PULSE 60; RESP 16; TEMP 36.8; O2SAT 95; BMI 49.1
--- NOTE | 2024-09-07 07:25 | ECG_ITS ---
[facility]: 2024[facility]07 Pat Name: Selena Salgado Department: Room: Gender: Female Collar Sewer: : 1950 Requested By: Earnest Rodriguez Order Number: [id number] Veronica MD: Angelo Humphreys M.D. Measurements Intervals [place] Rate: 57 P: 56 OK: 170 QRS: 66 QRSD: 103 T: 67 QT: 456 QTc: 446 Interpretive Statements SINUS BRADYCARDIA INCOMPLETE RIGHT BUNDLE BRANCH BLOCK [90+ ms QRS DURATION, TERMINAL R IN V1/V2, 40+ ms S IN I/aVL/V4/V5/V6] Compared to ECG 08/24/2024 20:12:58 No significant changes Electronically Signed On 09-08-2024 15:57:28 SOLAR INSTALLATION TECHNICIAN by Angelo Humphreys M.D. [email or web address]
--- NOTE | 2024-09-07 07:25 | XR_ITS ---
WS: [id number] Portable AP upright chest, 09/07/2024 Clinical Data: cp Comparison: Portable chest, 08/24/2024 Findings: No nodules, masses or effusions are seen. The heart is slightly enlarged. The pulmonary vas cularity is not increased. No pneumonia or pneumothorax is seen. Monitor leads are on the chest wall. XR/XR chest 1V portable [id number] Impression: Cardiomegaly.
--- NOTE | 2024-09-07 07:35 | ED_ITS ---
HPI - Chest Pain 2 General: Chief Complaint: Chest Pain Stated Complaint: cp Time Seen by Provider: 09/07/24 07:25 Source: patient and EMS Mode of arrival: EMS Limitations: no limitations History of Present Illness: 73-year-old female who is here from [facility] states she been having some chest pain also feeling weak and tired. She had recently had a heart cath 2 stents placed on Tuesday. Patient rates her pain a 2 out of 10 currently denies any worsening improving factors. Associated symptoms: Deny abdominal pain, dyspnea, fever(s), nausea or vomiting Related Data Home Medications Medication Instructions Recorded Confirmed acetaminophen 500 mg tablet 500 mg PO Q6H PRN fever or pain 07/26/22 09/07/24 (Tylenol Extra Strength) multivitamin 1 tab PO DAILY 10/06/22 09/07/24 escitalopram oxalate 20 mg tablet 20 mg PO 199907/08/24 09/07/24 trazodone 100 mg tablet 100 mg PO 199907/08/24 09/03/24 famotidine 20 mg tablet 20 mg PO BID 09/03/24 09/07/24 hydrocortisone 1 % topical cream 1 applic topical TID PRN Itching 09/03/24 09/07/24 vitamin B complex 1 cap PO DAILY 09/03/24 09/03/24 vitamin E (dl, acetate) 180 mg 180 mg PO DAILY 09/03/24 09/03/24 (400 unit) capsule levocetirizine 5 mg tablet 5 mg PO DAILY 09/07/24 09/07/24 levothyroxine 150 mcg tablet 150 mcg PO QAM 09/07/24 09/07/24 Previous Rx's Medication Instructions Recorded furosemide 20 mg tablet 20 mg PO DAILY PRN edema #90 tabs 01/11/24 hydrochlorothiazide 25 mg tablet 25 mg PO DAILY 90 days #90 tabs 01/11/24 irbesartan 300 mg tablet 300 mg PO DAILY 90 days #90 tabs 01/11/24 omeprazole 20 mg capsule,delayed 20 mg PO DAILY PRN reflux 90 days 01/11/24 release #90 caps potassium chloride 20 mEq 20 meq PO DAILY PRN with lasix 90 01/11/24 tablet,extended release days #90 tabs pramipexole 0.5 mg tablet 0.5 mg PO BID 90 days #180 tabs 01/11/24 cyclobenzaprine 5 mg tablet 5 mg PO TID PRN muscle spasm 90 04/20/24 days #90 tabs diclofenac sodium 1 % topical gel 4 g topical QID #100 grams 06/21/24 (Voltaren Arthritis Pain) amlodipine 5 mg tablet 5 mg PO DAILY #90 tabs 07/08/24 aspirin 81 mg capsule 81 mg PO DAILY #90 caps 07/08/24 atenolol 25 mg tablet 12.5 mg (1/2 x 25 mg) PO DAILY 90 07/08/24 days #90 tabs atorvastatin 40 mg tablet 40 mg PO BEDTIME #90 tabs 07/08/24 tramadol 50 mg tablet 50 mg PO Q12H PRN pain #60 tabs 07/17/24 polyethylene glycol 3350 17 4 g PO DAILY #850 grams 07/26/24 gram/dose oral powder (Miralax) albuterol sulfate 90 mcg/actuation 1 inh inhalation QID PRN shortness 07/30/24 aerosol inhaler of breath or wheezing #6.7 grams fluticasone propionate 50 2 spray intranasal DAILY #16 grams 07/30/24 mcg/actuation nasal spray,suspension (Flonase Allergy Relief) nystatin 100,000 unit/gram topical 1 applic topical BID PRN rash 7 07/30/24 ointment days #30 grams nitroglycerin 0.4 mg sublingual 0.4 mg sublingual Q5M PRN chest 08/24/24 tablet pain #30 tabs clopidogrel 75 mg tablet (Plavix) 75 mg PO DAILY #30 tabs 09/07/24 Allergies Allergy/AdvReac Type Severity Reaction Status Date / Time adhesive tape Allergy Intermediate ALGY-Rash Verified 07/17/24 09:30 meperidine [From Demerol] Allergy Mild ALGY-RASH Verified 07/17/24 09:30 morphine Allergy Mild ALGY-RASH Verified 07/17/24 09:30 pantoprazole [From Protonix] Allergy Mild ALGY-RASH Verified 07/17/24 09:30 imipramine AdvReac Mild ADR-FLU Verified 07/17/24 09:30 LIKE SYMPTOMS promethazine [From Phenergan] AdvReac Mild ADR-RESTLESS Verified 07/17/24 09:30 LEGS celecoxib [From Celebrex] AdvReac ADR-INCREASED Verified 07/17/24 09:30 APPETITE lisinopril AdvReac ADR-COUGH Verified 07/17/24 09:30 Review of Systems 2 Const: Denies: fever(s), chills, body aches or change in appetite ENMT: Denies: throat pain or dental pain Card: Denies: chest pain Resp: Denies: dyspnea GI: Denies: abdominal pain, nausea, vomiting or diarrhea Musc: Denies: neck pain or back pain Skin/Breast: Denies: rash Neuro: Denies: headache(s) PFSH ED 2 PFSH: Medical History Encounter for examination for admission to assisted living facility Left shoulder strain Morbid obesity with BMI of 45.0-49.9, adult Depression Right rotator cuff tear TAMARA positive Heart palpitations Fluid retention in legs CHF (congestive heart failure) Degenerative disk disease Cervical radiculopathy at C6 Hyperlipidemia Restless leg syndrome GERD (gastroesophageal reflux disease) Hypothyroidism Benign hypertension Surgical History H/O gastric sleeve 2011 S/P knee replacement S/P tonsillectomy and adenoidectomy S/P cholecystectomy S/P cataract surgery History of left mastoidectomy Hx of section S/P appendectomy H/O tubal ligation H/O tympanostomy H/O: hysterectomy H/O rhinoplasty History of carpal tunnel surgery H/O decompression of ulnar nerve H/O gastric bypass Family History Other Cancer Diabetes Social History Smoking and tobacco/nicotine status: never used tobacco/nicotine Second hand smoke exposure: No Alcohol intake: never Substance/Drug Use: never Adopted: No service: No Current occupational exposures/hazards: Yes Female Reproductive History: Spontaneous abortions: No Physical Exam 2 Const: COMMON NORMALS: no acute distress, patient oriented x3 and healthy appearing HENMT: COMMON NORMALS: normocephalic and atraumatic HEAD & SCALP: n ormocephalic and atraumatic Neck/C-Spine: COMMON NORMALS: full ROM and supple Chest: COMMONS NORMALS: normal inspection of the chest and normal palpation of entire chest wall Resp: COMMON NORMALS: normal respiratory effort, No retractions, No use of accessory muscles and clear to auscultation bilaterally AUSCULTATION: clear to auscultation bilaterally Cardio: COMMON NORMALS: regular rate, regular rhythm and No murmurs present (Cardio) RATE: regular rate RHYTHM: regular rhythm Extremity: COMMON NORMALS: normal to inspection and full ROM Neuro: COMMON NORMALS: patient oriented x3, moves all extremities and no focal motor deficits Psych: COMMON NORMALS: mental status grossly normal, Normal thought process present and cooperative THOUGHT PROCESS: Normal thought process present Skin: COMMON NORMALS: no rashes or lesions noted and no wounds GENERAL SKIN EXAM: no rashes or lesions noted Course 2 Vital Signs: Vital signs: Vital Signs Temperature 98.3 F 09/07/24 07:25 Pulse Rate 59 L 09/07/24 10:42 Respiratory Rate 16 09/07/24 10:42 Blood Pressure 147/83 09/07/24 10:42 Pulse Oximetry 99 09/07/24 10:42 Oxygen Delivery Me thod Room Air 09/07/24 07:25 MDM - Chest Pain Medical Decision Making Patient presents for some chest pain weakness shortness of breath she had stents placed Tuesday her heart enzymes EKG x-ray here are all normal she has been well- appearing here as well in no distress I did speak to 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 Patel her symptoms could be due to her Brilinta will stop Brilinta did load her with Plavix here we will provide a prescription for Plavix he is gone to get her follow-up as well she is stable for discharge she is to return if worsening. Medical Records I reviewed the patient's medical records. Lab Data I reviewed the patient's lab results. 09/07/24 08:03 09/07/24 08:03 Radiology Impressions Chest X-Ray 09/07/24 07:25 Impression: Cardiomegaly. Laboratory Results WBC 8.66 10^3/uL (3.29-11.43) 09/07/24 08:03 RBC 4.51 10^6/uL (3.85-5.65) 09/07/24 08:03 Hgb 12.20 g/dL (11.27-16.99) 09/07/24 08:03 Hct 38.8 % (36-47) 09/07/24 08:03 MCV 86.0 fl (85-98) 09/07/24 08:03 MCH 27.1 pg (27-33) 09/07/24 08:03 MCHC 31.4 g/dL (30-55) 09/07/24 08:03 RDW 18.6 % (12.1-15.1) H 09/07/24 08:03 Plt Count 195 10^3/cmm (157-399) 09/07/24 08:03 MPV 9.5 fL (7.4-10.4) 09/07/24 08:03 Neut % (Auto) 70.9 % 09/07/24 08:03 Lymph % (Auto) 21.5 % 09/07/24 08:03 Gibson % (Auto) 6.0 % 09/07/24 08:03 Eos % (Auto) 1.2 % 09/07/24 08:03 Baso % (Auto) 0.2 % 09/07/24 08:03 Neut # (Auto) 6.14 10^3/uL (1.8-7.7) 09/07/24 08:03 Lymph # (Auto) 1.9 10^3/uL (0.8-4.8) 09/07/24 08:03 Gibson # (Auto) 0.5 10^3/uL (0.2-0.9) 09/07/24 08:03 Eos # (Auto) 0.1 10^3/uL (0.0-0.8) 09/07/24 08:03 Baso # (Auto) 0.0 10^3/uL (0.0-0.1) 09/07/24 08:03 Nucleated RBC % (auto) 0 % 09/07/24 08:03 Nucleated RBCs # 0.0 /100WBC 09/07/24 08:03 PT 12.90 SECONDS (12.1-14.9) 09/07/24 08:03 INR 0.94 (0.8-1.2) 09/07/24 08:03 Sodium 139 mmol/L (136-145) 09/07/24 08:03 Potassium 3.7 mmol/L (3.5-5.1) 09/07/24 08:03 Chloride 102 mmol/L (98-107) 09/07/24 08:03 Carbon Dioxide 29 mmol/L (22-29) 09/07/24 08:03 Anion Gap 11.7 (5-19) 09/07/24 08:03 BUN 13 mg/dL (8-23) 09/07/24 08:03 Creatinine 0.5 mg/dL (0.5-0.9) 09/07/24 08:03 GFR Calculation Not Reportable 09/07/24 08:03 Glucose 103 mg/dL (65-115) 09/07/24 08:03 Calculated Osmolality 288 mOsm/kg (285-295) 09/07/24 08:03 Calcium 8.6 mg/dL (8.5-10.5) 09/07/24 08:03 Total Bilirubin 1.0 mg/dL (0.15-1.2) 09/07/24 08:03 AST 17 U/L (0-32) 09/07/24 08:03 ALT 15 U/L (0-33) 09/07/24 08:03 Alkaline Phosphatase 117 U/L (35-105) H 09/07/24 08:03 Troponin T Baseline 27 ng/L (0-10) H 09/07/24 08:03 Troponin T 120 Minute 27.76 ng/L (0-10) H 09/07/24 10:11 Delta Troponin T 0.76 ABS# (0-10) 09/07/24 10:11 Total Protein 5.2 g/dL (6.6-8.7) L 09/07/24 08:03 Albumin 3.8 g/dL (3.5-5.2) 09/07/24 08:03 Globulin 1.4 g/dL (1.3-4.6) 09/07/24 08:03 Lipase 16 U/L (13-60) 09/07/24 08:03 All radiology interpretation(s) finalized by discharge EKG Data EKG 1: I personally reviewed and interpreted this EKG as follows: EKG interpretation date: 09/07/24 EKG interpretation time: 07:28 Interpretation: sinus becky hr [address] or t wave abnormalities qrs 103 qtc 450 Discharge Plan Discharge Patient Disposition: Home Clinical Impression: Chest pain Condition: Stable Prescriptions: New clopidogrel [Plavix] 75 mg tablet 75 mg PO DAILY Qty: 30 0RF Discontinued Brilinta 90 mg tablet 90 mg PO BID No Action multivitamin Tablet 1 tab PO DAILY acetaminophen [Tylenol Extra Strength] 500 mg tablet 500 mg PO Q6H PRN (Reason: fever or pain) pramipexole 0.5 mg tablet 0.5 mg PO BID 90 Days Qty: 180 2RF hydrochlorothiazide 25 mg tablet 25 mg PO DAILY 90 Days Qty: 90 2RF furosemide 20 mg tablet 20 mg PO DAILY PRN (Reason: edema) Qty: 90 2RF irbesartan 300 mg tablet 300 mg PO DAILY 90 Days Qty: 90 2RF omeprazole 20 mg capsule,delayed release(DR/EC) 20 mg PO DAILY PRN (Reason: reflux) 90 Days Qty: 90 2RF potassium chloride 20 mEq tablet extended release 20 meq PO DAILY PRN (Reason: with lasix) 90 Days Qty: 90 2RF cyclobenzaprine 5 mg tablet 5 mg PO TID PRN (Reason: muscle spasm) 90 Days Qty: 90 1RF diclofenac sodium [Voltaren Arthritis Pain] 1 % gel 4 g topical QID Qty: 100 2RF Rx Instructions: apply to single knee, ankle, foot; for foot includes sole/toes/top of foot tramadol 50 mg tablet 50 mg PO Q12H PRN (Reason: pain) Qty: 60 0RF polyethylene glycol 3350 [Miralax] 17 gram/dose powder 4 g PO DAILY Qty: 850 2RF fluticasone propionate [Flonase Allergy Relief] 50 mcg/actuation spray,suspension 2 spray intranasal DAILY Qty: 16 0RF Rx Instructions: administer into each nostril albuterol sulfate 90 mcg/actuation HFA aerosol inhaler 1 inh inhalation QID PRN (Reason: shortness of breath or wheezing) Qty: 6.7 0RF nystatin 100,000 unit/gram ointment 1 applic topical BID PRN (Reason: rash) 7 Days Qty: 30 0RF nitroglycerin 0.4 mg tablet, sublingual 0.4 mg sublingual Q5M PRN (Reason: chest pain) Qty: 30 0RF Rx Instructions: do not exceed 3 doses per episode trazodone 100 mg tablet 100 mg PO 1999 escitalopram oxalate 20 mg tablet 20 mg PO 1999 atorvastatin 40 mg Tablet 40 mg PO BEDTIME Qty: 90 0RF aspirin 81 mg capsule 81 mg PO DAILY Qty: 90 0RF amlodipine 5 mg tablet 5 mg PO DAILY Qty: 90 0RF atenolol 25 mg tablet 12.5 mg PO DAILY 90 Days Qty: 90 2RF famotidine 20 mg Tablet 20 mg PO BID hydrocortisone 1 % Cream 1 applic TOPICAL TID PRN (Reason: Itching) vitamin B complex Capsule 1 cap PO DAILY vitamin E (dl, acetate) 180 mg (400 unit) Capsule 180 mg PO DAILY levothyroxine 150 mcg tablet 150 mcg PO QAM levocetirizine 5 mg tablet 5 mg PO DAILY Discharge Orders: Discharge ED (Routine); Ordered 09/07/24 Ordered By: Earnest Rodriguez Referrals: Kapil Gonzalez MD [Primary Care Provider] - Discharge Diet: Advance as tolerated Discharge Activity: Resume usual activity Patient Instructions: Chest Pain (ED) Coding Level of Care Code ED [employer]rm [employer] Developer for Hossein Doe
[2024-09-07 08:11] LABS: Basophils % 0.2 %; Eosinophils # 0.1 10^3/uL (0.0-0.8); Eosinophils % 1.2 %; Hematocrit 38.8 % (36-47); Lymphocytes # 1.9 10^3/uL (0.8-4.8); Lymphocytes % 21.5 %; Mean Corpuscular HGB Conc 31.4 g/dL (30-55); Mean Corpuscular Hemoglobin 27.1 pg (27-33); Mean Platelet Volume 9.5 fL (7.4-10.4); Monocytes # 0.5 10^3/uL (0.2-0.9); Neutrophils # 6.14 10^3/uL (1.8-7.7); Neutrophils % 70.9 %; Nucleated Red Blood Cells % 0 %; Platelet Count 195 10^3/cmm (157-399); Red Blood Count 4.51 10^6/uL (3.85-5.65); Red Cell Distribution Width 18.6 % (12.1-15.1); White Blood Count 8.66 10^3/uL (3.29-11.43)
[2024-09-07 08:14] VITALS: BP 135/56; PULSE 62; O2SAT 96
[2024-09-07 08:25] LABS: INR 0.94 (0.8-1.2)
[2024-09-07 08:32] LABS: Troponin(5th) Baseline 27 ng/L (0-10)
[2024-09-07 08:34] LABS: Alanine Aminotransferase 15 U/L (0-33); Albumin Level 3.8 g/dL (3.5-5.2); Alkaline Phosphatase 117 U/L (35-105); Anion Gap 11.7 (5-19); Aspartate Amino Transferase 17 U/L (0-32); Blood Urea Nitrogen 13 mg/dL (8-23); Calcium 8.6 mg/dL (8.5-10.5); Carbon Dioxide 29 mmol/L (22-29); Chloride 102 mmol/L (98-107); Creatinine Clr Calc Pharmacy 74.9976; Globulin 1.4 g/dL (1.3-4.6); Glucose 103 mg/dL (65-115); Lipase 16 U/L (13-60); Osmolality Calculated 288 mOsm/kg (285-295); Potassium 3.7 mmol/L (3.5-5.1); Sodium 139 mmol/L (136-145); Total Protein 5.2 g/dL (6.6-8.7)
--- NOTE | 2024-09-07 09:06 | ECG_ITS ---
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
[2024-09-07 09:14] VITALS: BP 125/65; PULSE 59; RESP 18; O2SAT 98
[2024-09-07 10:31] LABS: Troponin 5 2HR 27.76 ng/L (0-10); Troponin 5 2HR Delta 0.76 ABS# (0-10)
[2024-09-07 10:42] VITALS: BP 147/83; PULSE 59; RESP 16; O2SAT 99
[2024-09-07 11:04] VITALS: BP 147/83; PULSE 68; O2SAT 100
[2024-09-07] MEDS: clopidogrel 300 mg Tablet 600 MG PO (11:04)
== END 2024-09-07 11:05 | disposition home or self-care (01) ==
PROVIDERS: Emergency Provider Emergency Medicine; PCP Family Medicine Adult Medicine
DX: R07.9 Chest pain, unspecified (principal); Z79.82 Long term (current) use of aspirin; Z95.818 Presence of other cardiac implants and grafts; I11.0 Hypertensive heart disease with heart failure; I50.9 Heart failure, unspecified; E78.5 Hyperlipidemia, unspecified
CPT/HCPCS: 71045; 80053; 83690; 84484; 85025; 85610; 93005; 99285

== ENCOUNTER → 2024-09-18 12:59 | Outpatient (BNVA) | payer MEDICARE, MEDICAID, SELFPAY | PROVIDERS: PCP Family Medicine Adult Medicine; Visit Provider Nurse Practitioner Family | DX: I25.10 Atherosclerotic heart disease of native coronary artery without angina pectoris (principal); I11.0 Hypertensive heart disease with heart failure; I50.9 Heart failure, unspecified; E78.5 Hyperlipidemia, unspecified | CPT/HCPCS: 99214 ==

== ENCOUNTER 2024-09-28 15:05 | Outpatient (CLI) | payer MEDICARE, MEDICAID, SELFPAY ==
[2024-09-28 16:24] LABS: Anion Gap 12.6 (5-19); Blood Urea Nitrogen 17 mg/dL (8-23); Calcium 9.8 mg/dL (8.5-10.5); Carbon Dioxide 32 mmol/L (22-29); Chloride 97 mmol/L (98-107); Glucose 107 mg/dL (65-115); NT Pro B Type Natriuretic Pept 267 pg/mL (0-125); Osmolality Calculated 288 mOsm/kg (285-295); Potassium 3.6 mmol/L (3.5-5.1); Sodium 138 mmol/L (136-145)
[2024-09-28 16:26] LABS: Free T4 Free Thyroxine 1.34 ng/dL (0.82-1.77); Thyroid Stimulating Hormone 0.46 uIU/mL (0.27-4.20)
[2024-10-03 16:40] LABS: Alternaria Alternata (M6) Ige <0.10 kU/L; Alternaria Class 0; Aspergillus fumigatus <0.10 kU/L; Aspergillus fumigatus Class 0; Bermuda Class 0; Bermuda Grass (G2) Ige <0.10 kU/L; Cat Dander (E1) Ige <0.10 kU/L; Cat Dander Class 0; Cladosporium herbarum <0.10 kU/L; Cladosporium herbarum Class 0; Cockroach <0.10 kU/L; Cockroach Class 0; Common Ragweed (Short) (W1) Ig <0.10 kU/L; Cottonwood <0.10 kU/L; Cottonwood Class 0; D. Farinae Class 0; Dermatophagoides Class 0; Dermatophagoides Farinae (D2) <0.10 kU/L; Dermatophagoides Pteronyssinus <0.10 kU/L; Dog Dander (E5) Ige <0.10 kU/L; Dog Dander Class 0; Elm (T8) Ige <0.10 kU/L; Elm Class 0; Immunoglobulin E 9 kU/L (<OR=114); Maple (Box Elder) (T1) Ige <0.10 kU/L; Maple Class 0; Maple leaf sycamore Tree <0.10 kU/L; Maple leaf sycamore Tree Class 0; Mountain cedar <0.10 kU/L; Mountain cedar Class 0; Mouse Urine Proteins <0.10 kU/L; Mouse Urine Proteins Class 0; Oak (T7) Ige <0.10 kU/L; Oak Class 0; Pecan/Hickory Tree <0.10 kU/L; Pecan/Hickory Tree Class 0; Penicillium Class 0; Penicillium Notatum (M1) Ige <0.10 kU/L; Ragweeed Class 0; Rough Marsh Elder (W16) Ige <0.10 kU/L; Rough Marsh Elder Class 0; Rough pigweed <0.10 kU/L; Rough pigweed Class 0; Russian Thistle (W11) IgE <0.10 kU/L; Russian Thistle Class 0; Timothy Grass (G6) Ige <0.10 kU/L; Timothy Grass Class 0; Walnut Tree <0.10 kU/L; Walnut Tree Class 0; White Ash Tree <0.10 kU/L; White Ash Tree Class 0; White Mulberry <0.10 kU/L; White Mulberry Class 0
== END 2024-09-28 15:06 | disposition home or self-care (01) ==
PROVIDERS: Absent Provider Specialist; PCP Family Medicine Adult Medicine; Visit Provider Nurse Practitioner Family
DX: J30.1 Allergic rhinitis due to pollen (principal); I50.22 Chronic systolic (congestive) heart failure
CPT/HCPCS: 36415; 80048; 83880; 84439; 84443; 86003

== ENCOUNTER → 2024-10-04 11:06 | Outpatient (BNVA) | payer MEDICARE, MEDICAID, SELFPAY | PROVIDERS: PCP Family Medicine Adult Medicine; Visit Provider Nurse Practitioner Family | DX: I87.2 Venous insufficiency (chronic) (peripheral) (principal) | CPT/HCPCS: 99213 ==

== ENCOUNTER → 2024-10-15 14:09 | Outpatient (BNVA) | payer MEDICARE, MEDICAID, SELFPAY | PROVIDERS: PCP Family Medicine Adult Medicine | DX: I10 Essential (primary) hypertension (principal); I50.22 Chronic systolic (congestive) heart failure | CPT/HCPCS: 80053; 83880 ==

== ENCOUNTER → 2024-11-06 07:26 | Outpatient (BNVA) | payer MEDICARE, MEDICAID, SELFPAY | PROVIDERS: PCP Family Medicine Adult Medicine; Visit Provider Anesthesiology Pain Medicine | DX: G89.29 Other chronic pain; M54.12 Radiculopathy, cervical region; M47.816 Spondylosis without myelopathy or radiculopathy, lumbar region | CPT/HCPCS: 99214 ==

== ENCOUNTER → 2024-11-14 13:20 | Outpatient (BNVA) | payer MEDICARE, MEDICAID, SELFPAY | PROVIDERS: PCP Family Medicine Adult Medicine; Visit Provider Anesthesiology Pain Medicine | DX: M79.18 Myalgia, other site (principal); G89.29 Other chronic pain; M54.12 Radiculopathy, cervical region; M47.816 Spondylosis without myelopathy or radiculopathy, lumbar region | CPT/HCPCS: 20553; 99214; J1010; J3490 ==

== ENCOUNTER → 2024-11-23 08:54 | Outpatient (BNVA) | payer MEDICARE, MEDICAID, SELFPAY | PROVIDERS: PCP Family Medicine Adult Medicine; Visit Provider Family Medicine | DX: R82.90 Unspecified abnormal findings in urine (principal) | CPT/HCPCS: 81000; 87086 ==

== ENCOUNTER 2024-11-24 03:43 | Emergency (ER) | payer MEDICARE, MEDICAID, SELFPAY ==
--- NOTE | 2024-11-24 03:45 | XRR_ITS ---
PROCEDURE INFORMATION: Exam: XR Chest Exam date and time: 11/24/2024 3:46 AM Age: 74 years old Clinical indication: Chest pressure; Prior surgery; Surgery date: 6+ months; Surgery type: Coronary stents; EMS arrival for chest pain; Additional info: Cp TECHNIQUE: Imaging protocol: Radiologic exam of the chest. Views: 1 view. COMPARISON: CR XR chest 1V portable [id number] 09/07/2024 7:39 AM FINDINGS: Lungs: Unremarkable. No consolidation. Pleural spaces: Unremarkable. No pleural effusion. No pneumothorax. Heart/Mediastinum: The heart size is unchanged. Mediastinum and hilar soft tissues unremarkable. Mild atherosclerosis of the aorta. Bones/joints: There is moderate diffuse spondylosis. XR/XR chest 1V portable [id number] IMPRESSION: No acute process identified.
--- NOTE | 2024-11-24 03:47 | ECG_ITS ---
[facility] Test Date: 2024-11-24 Pat Name: Selena Salgado Department: Room: Gender: Female Reservations Specialist: : 1950 Requested By: Elan Wong Order Number: [id number] Veronica MD: Georges Green M.D. Measurements Intervals [place] Rate: 56 P: 46 ME: 166 QRS: 42 QRSD: 104 T: 46 QT: 447 QTc: 434 Interpretive Statements SINUS BRADYCARDIA INCOMPLETE RIGHT BUNDLE BRANCH BLOCK [90+ ms QRS DURATION, TERMINAL R IN V1/V2, 40+ ms S IN I/aVL/V4/V5/V6] Compared to ECG 09/07/2024 09:06:07 No significant changes Electronically Signed On 11-24-2024 13:17:25 TIRE RETREADER by Georges Green M.D. [id number]
--- NOTE | 2024-11-24 03:48 | W.ED.CHESTPA ---
Documented by User: Elan Wong DO 11/24/24 03:52 HPI - Chest Pain General: Chief Complaint: Chest Pain Stated Complaint: CHEST PAIN Time Seen by Provider: 11/24/24 03:47 History of Present Illness: Presents to the ER by EMS. Mother's main complaint was chest pain. Pain started at the patient's house was substernal did not radiate but she said it felt the same as when she had her previous heart attack requiring stents. Patient took 2 nitros at home and was pain-free before EMS arrived there. Once EMS arrived they gave her 324 mg aspirin and brought her to the ER. Patient is still currently pain-free at this time. Patient is currently taking Plavix, review of the chart it appears patient has seen Dr. Hensley and Cecy Oconnor. It appears she had 2 stents on 09/03/2024 Related Data Home Medications Medication Instructions Recorded Confirmed acetaminophen 500 mg tablet 500 mg PO Q6H PRN fever or pain 07/26/22 11/23/24 (Tylenol Extra Strength) multivitamin 1 tab PO DAILY 10/06/22 11/23/24 escitalopram oxalate 20 mg tablet 20 mg PO 199907/08/24 11/23/24 trazodone 100 mg tablet 100 mg PO 199907/08/24 11/23/24 famotidine 20 mg tablet 20 mg PO BID 09/03/24 11/23/24 hydrocortisone 1 % topical cream 1 applic topical TID PRN Itching 09/03/24 11/23/24 vitamin B complex 1 cap PO DAILY 09/03/24 11/23/24 vitamin E (dl, acetate) 180 mg 180 mg PO DAILY 09/03/24 11/23/24 (400 unit) capsule levocetirizine 5 mg tablet 5 mg PO DAILY 09/07/24 11/23/24 levothyroxine 150 mcg tablet 150 mcg PO QAM 09/07/24 11/23/24 furosemide 20 mg tablet 20 mg PO DAILY edema 09/18/24 11/23/24 atorvastatin 40 mg tablet 40 mg PO DAILY 11/23/24 11/23/24 Previous Rx's Medication Instructions Recorded hydrochlorothiazide 25 mg tablet 25 mg PO DAILY 90 days #90 tabs 01/11/24 omeprazole 20 mg capsule,delayed 20 mg PO DAILY PRN reflux 90 days 01/11/24 release #90 caps potassium chloride 20 mEq 20 meq PO DAILY PRN with lasix 90 01/11/24 tablet,extended release days #90 tabs pramipexole 0.5 mg tablet 0.5 mg PO BID 90 days #180 tabs 01/11/24 cyclobenzaprine 5 mg tablet 5 mg PO TID PRN muscle spasm 90 04/20/24 days #90 tabs diclofenac sodium 1 % topical gel 4 g topical QID #100 grams 06/21/24 (Voltaren Arthritis Pain) aspirin 81 mg capsule 81 mg PO DAILY #90 caps 07/08/24 atenolol 25 mg tablet 12.5 mg (1/2 x 25 mg) PO DAILY 90 07/08/24 days #90 tabs tramadol 50 mg tablet 50 mg PO Q12H PRN pain #60 tabs 07/17/24 polyethylene glycol 3350 17 4 g PO DAILY #850 grams 07/26/24 gram/dose oral powder (Miralax) albuterol sulfate 90 mcg/actuation 1 inh inhalation QID PRN shortness 07/30/24 aerosol inhaler of breath or wheezing #6.7 grams fluticasone propionate 50 2 spray intranasal DAILY #16 grams 07/30/24 mcg/actuation nasal spray,suspension (Flonase Allergy Relief) nystatin 100,000 unit/gram topical 1 applic topical BID PRN rash 7 07/30/24 ointment days #30 grams nitroglycerin 0.4 mg sublingual 0.4 mg sublingual Q5M PRN chest 08/24/24 tablet pain #30 tabs clopidogrel 75 mg tablet (Plavix) 75 mg PO DAILY #30 tabs 09/07/24 irbesartan 150 mg tablet 150 mg PO DAILY #90 tabs 09/18/24 lidocaine HCl 2 % mucosal solution 1 applic mucous membrane QID PRN 11/23/24 (Lidocaine Viscous) pain #100 mL Allergies Allergy/AdvReac Type Severity Reaction Status Date / Time adhesive tape Allergy Intermediate ALGY-Rash Verified 11/23/24 08:01 meperidine [From Demerol] Allergy Mild ALGY-RASH Verified 11/23/24 08:01 morphine Allergy Mild ALGY-RASH Verified 11/23/24 08:01 pantoprazole [From Protonix] Allergy Mild ALGY-RASH Verified 11/23/24 08:01 imipramine AdvReac Mild ADR-FLU Verified 11/23/24 08:01 LIKE SYMPTOMS promethazine [From Phenergan] AdvReac Mild ADR-RESTLESS Verified 11/23/24 08:01 LEGS celecoxib [From Celebrex] AdvReac ADR-INCREASED Verified 11/23/24 08:01 APPETITE lisinopril AdvReac ADR-COUGH Verified 11/23/24 08:01 Review of Systems General: Reports: 10 or more systems reviewed and unremarkable except in HPI and below PFSH ED PFSH: Medical History Family hx of colon cancer father Coronary artery disease 2 stents 09/16 Insomnia Pain management contract signed 11.23.24 tramadol Encounter for chronic pain management tramadol; prn DANITZA on CPAP Bilateral lower extremity edema Morbid obesity with BMI of 45.0-49.9, adult Depression Heart palpitations CHF (congestive heart failure) Degenerative disk disease Cervical radiculopathy at C6 Hyperlipidemia Restless leg syndrome GERD (gastroesophageal reflux disease) Hypothyroidism Benign hypertension Surgical History Bariatric surgery status Hx of cardiac catheterization 11.3.24 2 stents [facility] H/O gastric sleeve 2010 S/P knee replacement left S/P tonsillectomy and adenoidectomy S/P cholecystectomy S/P cataract surgery bilateral History of left mastoidectomy Hx of section X 2 S/P appendectomy H/O tubal ligation H/O tympanostomy H/O: hysterectomy w/ BSO done for fibroids H/O rhinoplasty History of carpal tunnel surgery bilateral H/O decompression of ulnar nerve bilateral Family History Brother Prostate cancer Father Colon cancer Mother Brain cancer Other Cancer Diabetes Social History Smoking and tobacco/nicotine status: never used tobacco/nicotine Second hand smoke exposure: No Alcohol intake: never Substance/Drug Use: never Adopted: No Housing: Assisted Living Facility Marital status: Marital status details: they live at [facility] Number of children: 3 Highest education level completed: High School Graduate service: No Current occupational status: retired Current occupational exposures/hazards: Yes 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 Female Reproductive History: Spontaneous abortions: No Physical Exam Const: COMMON NORMALS: no acute distress, average body habitus, patient oriented x3, no limitations, healthy appearing, alert and well nourished HENMT: COMMON NORMALS: normocephalic, atraumatic, hearing grossly normal bilaterally, external ears normal, Normal external nose present and moist oral mucous membranes HEAD & SCALP: normocephalic and atraumatic NOSE: Normal external nose present EXTERNAL EAR: Yes external ears normal Neck/C-Spine: COMMON NORMALS: no JVD Chest: COMMONS NORMALS: normal inspection of the chest and normal palpation of entire chest wall Resp: COMMON NORMALS: normal respiratory effort, No retractions, No use of accessory muscles and clear to auscultation bilaterally AUSCULTATION: clear to auscultation bilaterally Cardio: COMMON NORMALS: no JVD, regular rate, regular rhythm, S1 normal heart sound present, S2 normal heart sound present, No gallops present (Cardio), No clicks present (Cardio), No murmurs present (Cardio) and No rub (Cardio) RATE: regular rate RHYTHM: regular rhythm HEART SOUNDS: S1 normal heart sound present and S2 normal heart sound present GI: COMMON NORMALS: Normal to inspection, nondistended, normoactive bowel sounds present, Soft to palpation, non-tender, No hepatosplenomegaly present and no masses PALPATION: Yes Soft to palpation and Yes No hepatosplenomegaly present Neuro: COMMON NORMALS: patient oriented x3 SENSORIUM/ORIENTATION: Yes alert Course Vital Signs: Vital signs: Vital Signs Temperature 98 F 11/24/24 04:02 Pulse Rate 50 L 11/24/24 07:03 Respiratory Rate 16 11/24/24 07:03 Blood Pressure 120/56 11/24/24 04:02 Pulse Oximetry 97 11/24/24 07:03 MDM - Chest Pain Medical Records I reviewed the patient's medical records. Lab Data I reviewed the patient's lab results. 11/24/24 04:00 11/24/24 04:47 Radiology Impressions Chest X-Ray 11/24/24 03:45 IMPRESSION: No acute process identified. Laboratory Results WBC 7.85 10^3/uL (3.29-11.43) 11/24/24 04:00 RBC 4.56 10^6/uL (3.85-5.65) 11/24/24 04:00 Hgb 12.00 g/dL (11.27-16.99) 11/24/24 04:00 Hct 38.0 % (36-47) 11/24/24 04:00 MCV 83.3 fl (85-98) L 11/24/24 04:00 MCH 26.3 pg (27-33) L 11/24/24 04:00 MCHC 31.6 g/dL (30-55) 11/24/24 04:00 RDW 17.7 % (12.1-15.1) H 11/24/24 04:00 Plt Count 161 10^3/cmm (157-399) 11/24/24 04:00 MPV 10.0 fL (7.4-10.4) 11/24/24 04:00 Neut % (Auto) 61.3 % 11/24/24 04:00 Lymph % (Auto) 29.2 % 11/24/24 04:00 Gaston % (Auto) 7.8 % 11/24/24 04:00 Eos % (Auto) 1.3 % 11/24/24 04:00 Baso % (Auto) 0.1 % 11/24/24 04:00 Neut # (Auto) 4.82 10^3/uL (1.8-7.7) 11/24/24 04:00 Lymph # (Auto) 2.3 10^3/uL (0.8-4.8) 11/24/24 04:00 Gaston # (Auto) 0.6 10^3/uL (0.2-0.9) 11/24/24 04:00 Eos # (Auto) 0.1 10^3/uL (0.0-0.8) 11/24/24 04:00 Baso # (Auto) 0.0 10^3/uL (0.0-0.1) 11/24/24 04:00 Nucleated RBC % (auto) 0 % 11/24/24 04:00 Nucleated RBCs # 0.0 /100WBC 11/24/24 04:00 Sodium 134 mmol/L (136-145) L 11/24/24 04:47 Potassium 3.5 mmol/L (3.5-5.1) 11/24/24 04:47 Chloride 95 mmol/L (98-107) L 11/24/24 04:47 Carbon Dioxide 32 mmol/L (22-29) H 11/24/24 04:47 Anion Gap 10.5 (5-19) 11/24/24 04:47 BUN 11 mg/dL (8-23) 11/24/24 04:47 Creatinine 0.5 mg/dL (0.5-0.9) 11/24/24 04:47 GFR Calculation Not Reportable 11/24/24 04:47 Glucose 107 mg/dL (65-115) 11/24/24 04:47 Calculated Osmolality 278 mOsm/kg (285-295) L 11/24/24 04:47 Calcium 9.1 mg/dL (8.5-10.5) 11/24/24 04:47 Troponin T Baseline 16 ng/L (0-10) H 11/24/24 04:47 Troponin T 120 Minute 17.58 ng/L (0-10) H 11/24/24 06:55 Delta Troponin T 1.58 ABS# (0-10) 11/24/24 06:55 All radiology interpretation(s) finalized by discharge Discharge Plan Discharge Patient Disposition: Home Clinical Impression: Chronic hyponatremia Chest pain Qualifiers: Chest pain type: unspecified Qualified Code(s): R07.9 - Chest pain, unspecified Condition: Stable Prescriptions: No Action multivitamin Tablet 1 tab PO DAILY furosemide 20 mg tablet 20 mg PO DAILY irbesartan 150 mg tablet 150 mg PO DAILY Qty: 90 3RF atorvastatin 40 mg tablet 40 mg PO DAILY lidocaine HCl [Lidocaine Viscous] 2 % solution 1 applic mucous membrane QID PRN (Reason: pain) Qty: 100 0RF acetaminophen [Tylenol Extra Strength] 500 mg tablet 500 mg PO Q6H PRN (Reason: fever or pain) pramipexole 0.5 mg tablet 0.5 mg PO BID 90 Days Qty: 180 2RF hydrochlorothiazide 25 mg tablet 25 mg PO DAILY 90 Days Qty: 90 2RF omeprazole 20 mg capsule,delayed release(DR/EC) 20 mg PO DAILY PRN (Reason: reflux) 90 Days Qty: 90 2RF potassium chloride 20 mEq tablet extended release 20 meq PO DAILY PRN (Reason: with lasix) 90 Days Qty: 90 2RF cyclobenzaprine 5 mg tablet 5 mg PO TID PRN (Reason: muscle spasm) 90 Days Qty: 90 1RF diclofenac sodium [Voltaren Arthritis Pain] 1 % gel 4 g topical QID Qty: 100 2RF Rx Instructions: apply to single knee, ankle, foot; for foot includes sole/toes/top of foot tramadol 50 mg tablet 50 mg PO Q12H PRN (Reason: pain) Qty: 60 0RF polyethylene glycol 3350 [Miralax] 17 gram/dose powder 4 g PO DAILY Qty: 850 2RF fluticasone propionate [Flonase Allergy Relief] 50 mcg/actuation spray,suspension 2 spray intranasal DAILY Qty: 16 0RF Rx Instructions: administer into each nostril albuterol sulfate 90 mcg/actuation HFA aerosol inhaler 1 inh inhalation QID PRN (Reason: shortness of breath or wheezing) Qty: 6.7 0RF nystatin 100,000 unit/gram ointment 1 applic topical BID PRN (Reason: rash) 7 Days Qty: 30 0RF nitroglycerin 0.4 mg tablet, sublingual 0.4 mg sublingual Q5M PRN (Reason: chest pain) Qty: 30 0RF Rx Instructions: do not exceed 3 doses per episode trazodone 100 mg tablet 100 mg PO 1999 escitalopram oxalate 20 mg tablet 20 mg PO 1999 aspirin 81 mg capsule 81 mg PO DAILY Qty: 90 0RF atenolol 25 mg tablet 12.5 mg PO DAILY 90 Days Qty: 90 2RF famotidine 20 mg Tablet 20 mg PO BID hydrocortisone 1 % Cream 1 applic TOPICAL TID PRN (Reason: Itching) vitamin B complex Capsule 1 cap PO DAILY vitamin E (dl, acetate) 180 mg (400 unit) Capsule 180 mg PO DAILY levothyroxine 150 mcg tablet 150 mcg PO QAM levocetirizine 5 mg tablet 5 mg PO DAILY clopidogrel [Plavix] 75 mg tablet 75 mg PO DAILY Qty: 30 0RF Discharge Orders: Discharge ED (Routine); Ordered 11/24/24 Ordered By: Zulema Marina Referrals: Kapil Gonzalez MD [Physician] - Discharge Diet: Advance as tolerated Discharge Activity: Resume usual activity Patient Instructions: Hyponatremia, Chest Pain (DC), Opioid Safety, Pain Management Activity Restrictions/Additional Instructions: Continue to take your other current medications. Home to rest. If you are having recurrent chest pain, requiring nitroglycerin on a regular basis, you need to return to the emergency department. If you need to take more than 2 nitroglycerin, you should return to the emergency department. If persistent episodes of chest pain, or if the chest pain does not become relieved promptly with the nitro, you should return to the emergency department. Contact your senior software engineer analytics on Tuesday to let him know that you are in the emergency department to see if they want to schedule you for other testing or see you sooner than your upcoming scheduled appointment Coding Level of Care Code ED Manager Of International for Chg Fwd Documented by User: Zulema Marina MD 11/24/24 07:52 HPI - Chest Pain General: Chief Complaint: Chest Pain Stated Complaint: CHEST PAIN Time Seen by Provider: 11/24/24 03:47 Related Data Home Medications Medication Instructions Recorded Confirmed acetaminophen 500 mg tablet 500 mg PO Q6H PRN fever or pain 07/26/22 11/23/24 (Tylenol Extra Strength) multivitamin 1 tab PO DAILY 10/06/22 11/23/24 escitalopram oxalate 20 mg tablet 20 mg PO 199907/08/24 11/23/24 trazodone 100 mg tablet 100 mg PO 199907/08/24 11/23/24 famotidine 20 mg tablet 20 mg PO BID 09/03/24 11/23/24 hydrocortisone 1 % topical cream 1 applic topical TID PRN Itching 09/03/24 11/23/24 vitamin B complex 1 cap PO DAILY 09/03/24 11/23/24 vitamin E (dl, acetate) 180 mg 180 mg PO DAILY 09/03/24 11/23/24 (400 unit) capsule levocetirizine 5 mg tablet 5 mg PO DAILY 09/07/24 11/23/24 levothyroxine 150 mcg tablet 150 mcg PO QAM 09/07/24 11/23/24 furosemide 20 mg tablet 20 mg PO DAILY edema 09/18/24 11/23/24 atorvastatin 40 mg tablet 40 mg PO DAILY 11/23/24 11/23/24 Previous Rx's Medication Instructions Recorded hydrochlorothiazide 25 mg tablet 25 mg PO DAILY 90 days #90 tabs 01/11/24 omeprazole 20 mg capsule,delayed 20 mg PO DAILY PRN reflux 90 days 01/11/24 release #90 caps potassium chloride 20 mEq 20 meq PO DAILY PRN with lasix 90 01/11/24 tablet,extended release days #90 tabs pramipexole 0.5 mg tablet 0.5 mg PO BID 90 days #180 tabs 01/11/24 cyclobenzaprine 5 mg tablet 5 mg PO TID PRN muscle spasm 90 04/20/24 days #90 tabs diclofenac sodium 1 % topical gel 4 g topical QID #100 grams 06/21/24 (Voltaren Arthritis Pain) aspirin 81 mg capsule 81 mg PO DAILY #90 caps 07/08/24 atenolol 25 mg tablet 12.5 mg (1/2 x 25 mg) PO DAILY 90 07/08/24 days #90 tabs tramadol 50 mg tablet 50 mg PO Q12H PRN pain #60 tabs 07/17/24 polyethylene glycol 3350 17 4 g PO DAILY #850 grams 07/26/24 gram/dose oral powder (Miralax) albuterol sulfate 90 mcg/actuation 1 inh inhalation QID PRN shortness 07/30/24 aerosol inhaler of breath or wheezing #6.7 grams fluticasone propionate 50 2 spray intranasal DAILY #16 grams 07/30/24 mcg/actuation nasal spray,suspension (Flonase Allergy Relief) nystatin 100,000 unit/gram topical 1 applic topical BID PRN rash 7 07/30/24 ointment days #30 grams nitroglycerin 0.4 mg sublingual 0.4 mg sublingual Q5M PRN chest 08/24/24 tablet pain #30 tabs clopidogrel 75 mg tablet (Plavix) 75 mg PO DAILY #30 tabs 09/07/24 irbesartan 150 mg tablet 150 mg PO DAILY #90 tabs 09/18/24 lidocaine HCl 2 % mucosal solution 1 applic mucous membrane QID PRN 11/23/24 (Lidocaine Viscous) pain #100 mL Allergies Allergy/AdvReac Type Severity Reaction Status Date / Time adhesive tape Allergy Intermediate ALGY-Rash Verified 11/23/24 08:01 meperidine [From Demerol] Allergy Mild ALGY-RASH Verified 11/23/24 08:01 morphine Allergy Mild ALGY-RASH Verified 11/23/24 08:01 pantoprazole [From Protonix] Allergy Mild ALGY-RASH Verified 11/23/24 08:01 imipramine AdvReac Mild ADR-FLU Verified 11/23/24 08:01 LIKE SYMPTOMS promethazine [From Phenergan] AdvReac Mild ADR-RESTLESS Verified 11/23/24 08:01 LEGS celecoxib [From Celebrex] AdvReac ADR-INCREASED Verified 11/23/24 08:01 APPETITE lisinopril AdvReac ADR-COUGH Verified 11/23/24 08:01 PFSH ED PFSH: Medical History Family hx of colon cancer father Coronary artery disease 2 stents 09/16 Insomnia Pain management contract signed 11.23.24 tramadol Encounter for chronic pain management tramadol; prn DANITZA on CPAP Bilateral lower extremity edema Morbid obesity with BMI of 45.0-49.9, adult Depression Heart palpitations CHF (congestive heart failure) Degenerative disk disease Cervical radiculopathy at C6 Hyperlipidemia Restless leg syndrome GERD (gastroesophageal reflux disease) Hypothyroidism Benign hypertension Surgical History Bariatric surgery status Hx of cardiac catheterization 11.3.24 2 stents [facility] H/O gastric sleeve 2010 S/P knee replacement left S/P tonsillectomy and adenoidectomy S/P cholecystectomy S/P cataract surgery bilateral History of left mastoidectomy Hx of section X 2 S/P appendectomy H/O tubal ligation H/O tympanostomy H/O: hysterectomy w/ BSO done for fibroids H/O rhinoplasty History of carpal tunnel surgery bilateral H/O decompression of ulnar nerve bilateral Family History Brother Prostate cancer Father Colon cancer Mother Brain cancer Other Cancer Diabetes Social History Smoking and tobacco/nicotine status: never used tobacco/nicotine Second hand smoke exposure: No Alcohol intake: never Substance/Drug Use: never Adopted: No Housing: Assisted Living Facility Marital status: Marital status details: they live at [facility] Number of children: 3 Highest education level completed: High School Graduate service: No Current occupational status: retired Current occupational exposures/hazards: Yes 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 The patient took 2 sublingual nitroglycerin with resolution of her chest pain. She does report this being similar to the pain that she had when she had her stents placed which was August 2024, 3 months ago. She states the pain was short in duration and she denies chest pain at this time. She denies missing any of her medications changing any doses. She states this is the first time she has had to take nitroglycerin since her stents were placed. She states she has been sick recently with upper respiratory infections, recently treated with antibiotics. She has had generalized fatigue for the past 2 weeks as well as postnasal drainage. She is also nonproductive cough. Evaluation here, exam is unremarkable. EKGs show no acute ischemic changes per my interpretation. Her initial troponin was 16. 2-hour troponin is 17.58 with a delta of 1.58 which is within normal limits per my interpretation. Chest x-ray primary to rotation shows no acute infiltrate or effusion. Repeat EKG at 2 hours shows no acute ischemic changes from interpretation. Given the stable cardiac workup at this time, resolution of her pain, short duration of her pain, do not feel the patient needs admission this time. I have encouraged the patient to call with the rest of the weekend. If she needs to take recurrent nitroglycerin, taking more than 2 or has recurrent, persistent chest pain she needs to return to the emergency department. Have instructed her to contact her senior software engineer analytics on Tuesday to discuss whether he wants further testing completed and return sooner with worsening symptoms Lab Data 11/24/24 04:00 11/24/24 04:47 Radiology Impressions Chest X-Ray 11/24/24 03:45 IMPRESSION: No acute process identified. Laboratory Results WBC 7.85 10^3/uL (3.29-11.43) 11/24/24 04:00 RBC 4.56 10^6/uL (3.85-5.65) 11/24/24 04:00 Hgb 12.00 g/dL (11.27-16.99) 11/24/24 04:00 Hct 38.0 % (36-47) 11/24/24 04:00 MCV 83.3 fl (85-98) L 11/24/24 04:00 MCH 26.3 pg (27-33) L 11/24/24 04:00 MCHC 31.6 g/dL (30-55) 11/24/24 04:00 RDW 17.7 % (12.1-15.1) H 11/24/24 04:00 Plt Count 161 10^3/cmm (157-399) 11/24/24 04:00 MPV 10.0 fL (7.4-10.4) 11/24/24 04:00 Neut % (Auto) 61.3 % 11/24/24 04:00 Lymph % (Auto) 29.2 % 11/24/24 04:00 Gaston % (Auto) 7.8 % 11/24/24 04:00 Eos % (Auto) 1.3 % 11/24/24 04:00 Baso % (Auto) 0.1 % 11/24/24 04:00 Neut # (Auto) 4.82 10^3/uL (1.8-7.7) 11/24/24 04:00 Lymph # (Auto) 2.3 10^3/uL (0.8-4.8) 11/24/24 04:00 Gaston # (Auto) 0.6 10^3/uL (0.2-0.9) 11/24/24 04:00 Eos # (Auto) 0.1 10^3/uL (0.0-0.8) 11/24/24 04:00 Baso # (Auto) 0.0 10^3/uL (0.0-0.1) 11/24/24 04:00 Nucleated RBC % (auto) 0 % 11/24/24 04:00 Nucleated RBCs # 0.0 /100WBC 11/24/24 04:00 Sodium 134 mmol/L (136-145) L 11/24/24 04:47 Potassium 3.5 mmol/L (3.5-5.1) 11/24/24 04:47 Chloride 95 mmol/L (98-107) L 11/24/24 04:47 Carbon Dioxide 32 mmol/L (22-29) H 11/24/24 04:47 Anion Gap 10.5 (5-19) 11/24/24 04:47 BUN 11 mg/dL (8-23) 11/24/24 04:47 Creatinine 0.5 mg/dL (0.5-0.9) 11/24/24 04:47 GFR Calculation Not Reportable 11/24/24 04:47 Glucose 107 mg/dL (65-115) 11/24/24 04:47 Calculated Osmolality 278 mOsm/kg (285-295) L 11/24/24 04:47 Calcium 9.1 mg/dL (8.5-10.5) 11/24/24 04:47 Troponin T Baseline 16 ng/L (0-10) H 11/24/24 04:47 Troponin T 120 Minute 17.58 ng/L (0-10) H 11/24/24 06:55 Delta Troponin T 1.58 ABS# (0-10) 11/24/24 06:55 Discharge Plan Discharge Patient Disposition: Home Clinical Impression: Chronic hyponatremia Chest pain Qualifiers: Chest pain type: unspecified Qualified Code(s): R07.9 - Chest pain, unspecified Condition: Stable Prescriptions: No Action multivitamin Tablet 1 tab PO DAILY furosemide 20 mg tablet 20 mg PO DAILY irbesartan 150 mg tablet 150 mg PO DAILY Qty: 90 3RF atorvastatin 40 mg tablet 40 mg PO DAILY lidocaine HCl [Lidocaine Viscous] 2 % solution 1 applic mucous membrane QID PRN (Reason: pain) Qty: 100 0RF acetaminophen [Tylenol Extra Strength] 500 mg tablet 500 mg PO Q6H PRN (Reason: fever or pain) pramipexole 0.5 mg tablet 0.5 mg PO BID 90 Days Qty: 180 2RF hydrochlorothiazide 25 mg tablet 25 mg PO DAILY 90 Days Qty: 90 2RF omeprazole 20 mg capsule,delayed release(DR/EC) 20 mg PO DAILY PRN (Reason: reflux) 90 Days Qty: 90 2RF potassium chloride 20 mEq tablet extended release 20 meq PO DAILY PRN (Reason: with lasix) 90 Days Qty: 90 2RF cyclobenzaprine 5 mg tablet 5 mg PO TID PRN (Reason: muscle spasm) 90 Days Qty: 90 1RF diclofenac sodium [Voltaren Arthritis Pain] 1 % gel 4 g topical QID Qty: 100 2RF Rx Instructions: apply to single knee, ankle, foot; for foot includes sole/toes/top of foot tramadol 50 mg tablet 50 mg PO Q12H PRN (Reason: pain) Qty: 60 0RF polyethylene glycol 3350 [Miralax] 17 gram/dose powder 4 g PO DAILY Qty: 850 2RF fluticasone propionate [Flonase Allergy Relief] 50 mcg/actuation spray,suspension 2 spray intranasal DAILY Qty: 16 0RF Rx Instructions: administer into each nostril albuterol sulfate 90 mcg/actuation HFA aerosol inhaler 1 inh inhalation QID PRN (Reason: shortness of breath or wheezing) Qty: 6.7 0RF nystatin 100,000 unit/gram ointment 1 applic topical BID PRN (Reason: rash) 7 Days Qty: 30 0RF nitroglycerin 0.4 mg tablet, sublingual 0.4 mg sublingual Q5M PRN (Reason: chest pain) Qty: 30 0RF Rx Instructions: do not exceed 3 doses per episode trazodone 100 mg tablet 100 mg PO 1999 escitalopram oxalate 20 mg tablet 20 mg PO 1999 aspirin 81 mg capsule 81 mg PO DAILY Qty: 90 0RF atenolol 25 mg tablet 12.5 mg PO DAILY 90 Days Qty: 90 2RF famotidine 20 mg Tablet 20 mg PO BID hydrocortisone 1 % Cream 1 applic TOPICAL TID PRN (Reason: Itching) vitamin B complex Capsule 1 cap PO DAILY vitamin E (dl, acetate) 180 mg (400 unit) Capsule 180 mg PO DAILY levothyroxine 150 mcg tablet 150 mcg PO QAM levocetirizine 5 mg tablet 5 mg PO DAILY clopidogrel [Plavix] 75 mg tablet 75 mg PO DAILY Qty: 30 0RF Discharge Orders: Discharge ED (Routine); Ordered 11/24/24 Ordered By: Zulema Marina Referrals: Kapil Gonzalez MD [Physician] - Discharge Diet: Advance as tolerated Discharge Activity: Resume usual activity Patient Instructions: Hyponatremia, Chest Pain (DC), Opioid Safety, Pain Management Activity Restrictions/Additional Instructions: Continue to take your other current medications. Home to rest. If you are having recurrent chest pain, requiring nitroglycerin on a regular basis, you need to return to the emergency department. If you need to take more than 2 nitroglycerin, you should return to the emergency department. If persistent episodes of chest pain, or if the chest pain does not become relieved promptly with the nitro, you should return to the emergency department. Contact your senior software engineer analytics on Tuesday to let him know that you are in the emergency department to see if they want to schedule you for other testing or see you sooner than your upcoming scheduled appointment Coding Level of Care Code ED Manager Of International for Hossein Doe
[2024-11-24 04:02] VITALS: BP 120/56; PULSE 56; RESP 17; TEMP 36.6; O2SAT 97; BMI 41.5
[2024-11-24 04:04] LABS: Basophils % 0.1 %; Eosinophils # 0.1 10^3/uL (0.0-0.8); Eosinophils % 1.3 %; Lymphocytes # 2.3 10^3/uL (0.8-4.8); Lymphocytes % 29.2 %; Mean Corpuscular HGB Conc 31.6 g/dL (30-55); Mean Corpuscular Hemoglobin 26.3 pg (27-33); Mean Corpuscular Volume 83.3 fl (85-98); Monocytes # 0.6 10^3/uL (0.2-0.9); Monocytes % 7.8 %; Neutrophils # 4.82 10^3/uL (1.8-7.7); Neutrophils % 61.3 %; Nucleated Red Blood Cells % 0 %; Platelet Count 161 10^3/cmm (157-399); Red Blood Count 4.56 10^6/uL (3.85-5.65); Red Cell Distribution Width 17.7 % (12.1-15.1); White Blood Count 7.85 10^3/uL (3.29-11.43)
[2024-11-24 05:13] LABS: Troponin(5th) Baseline 16 ng/L (0-10)
[2024-11-24 05:14] LABS: Anion Gap 10.5 (5-19); Blood Urea Nitrogen 11 mg/dL (8-23); Calcium 9.1 mg/dL (8.5-10.5); Carbon Dioxide 32 mmol/L (22-29); Chloride 95 mmol/L (98-107); Creatinine Clr Calc Pharmacy 66.8096; Glucose 107 mg/dL (65-115); Osmolality Calculated 278 mOsm/kg (285-295); Potassium 3.5 mmol/L (3.5-5.1); Sodium 134 mmol/L (136-145)
[2024-11-24] MEDS: acetaminophen 500 mg Tablet 1000 MG PO (05:29)
--- NOTE | 2024-11-24 05:45 | ECG_ITS ---
[employer] Test Date: 2024-11-24 Pat Name: Selena Salgado Department: Room: Gender: Female Eeo Officer: : 1950 Requested By: Elan Wong Order Number: [id number] Veronica MD: Georges Green M.D. Measurements Intervals [place] Rate: 52 P: 52 ID: [id number] QRS: 59 QRSD: 102 T: 57 QT: 455 QTc: 427 Interpretive Statements SINUS BRADYCARDIA INCOMPLETE RIGHT BUNDLE BRANCH BLOCK [90+ ms QRS DURATION, TERMINAL R IN V1/V2, 40+ ms S IN I/aVL/V4/V5/V6] Compared to ECG 11/24/2024 03:47:31 No significant changes Electronically Signed On 11-24-2024 13:28:38 ON SITE PROPERTY MANAGER by Georges Green M.D. [id number]
[2024-11-24 07:03] VITALS: PULSE 50; RESP 16; O2SAT 97
--- NOTE | 2024-11-24 07:05 | PC.NURSE ---
this nurse assumed care @[id number]
[2024-11-24 07:27] LABS: Troponin 5 2HR 17.58 ng/L (0-10); Troponin 5 2HR Delta 1.58 ABS# (0-10)
[2024-11-24 08:03] VITALS: BP 126/57; PULSE 54; O2SAT 98
[2024-11-24] MEDS: TRAMadol 50 mg Tablet PO (08:03)
== END 2024-11-24 08:04 | disposition home or self-care (01) ==
PROVIDERS: Emergency Medicine; Emergency Provider Emergency Medicine; PCP Family Medicine
DX: E87.1 Hypo-osmolality and hyponatremia (principal); R07.9 Chest pain, unspecified; Z79.82 Long term (current) use of aspirin; Z79.02 Long term (current) use of antithrombotics/antiplatelets; I25.10 Atherosclerotic heart disease of native coronary artery without angina pectoris; I50.9 Heart failure, unspecified
CPT/HCPCS: 36415; 71045; 80048; 84484; 85025; 93005; 99285

== ENCOUNTER → 2024-12-06 14:25 | Outpatient (BNVA) | payer MEDICARE, MEDICAID, SELFPAY | PROVIDERS: PCP Family Medicine; Visit Provider Student in an Organized Health Care Education/Training Program | DX: R12 Heartburn (principal) | CPT/HCPCS: 99204 ==

== ENCOUNTER → 2024-12-11 08:24 | Outpatient (BNVA) | payer MEDICARE, MEDICAID, SELFPAY | PROVIDERS: PCP Family Medicine; Visit Provider Student in an Organized Health Care Education/Training Program | DX: M25.512 Pain in left shoulder (principal); S46.912D Strain of unspecified muscle, fascia and tendon at shoulder and upper arm level, left arm, subsequent encounter; X58.XXXD Exposure to other specified factors, subsequent encounter | CPT/HCPCS: 99213 ==

== ENCOUNTER → 2024-12-17 14:22 | Outpatient (BNVA) | payer MEDICARE, MEDICAID, SELFPAY | PROVIDERS: PCP Family Medicine; Visit Provider Anesthesiology Pain Medicine | DX: M54.12 Radiculopathy, cervical region (principal); M47.816 Spondylosis without myelopathy or radiculopathy, lumbar region; M54.2 Cervicalgia; G89.29 Other chronic pain; I50.22 Chronic systolic (congestive) heart failure | CPT/HCPCS: 99214 ==

== ENCOUNTER → 2024-12-18 15:36 | Outpatient (BNVA) | payer MEDICARE, MEDICAID, SELFPAY | PROVIDERS: PCP Family Medicine; Visit Provider Internal Medicine Cardiovascular Disease | DX: I11.0 Hypertensive heart disease with heart failure (principal); I50.22 Chronic systolic (congestive) heart failure; I25.10 Atherosclerotic heart disease of native coronary artery without angina pectoris; R42 Dizziness and giddiness; Z95.5 Presence of coronary angioplasty implant and graft | CPT/HCPCS: 99214 ==

== ENCOUNTER 2024-12-28 12:52 | Outpatient (CLI) | payer MEDICARE, MEDICAID, SELFPAY ==
--- NOTE | 2024-12-28 13:00 | MR_ITS ---
WS: [id number] MRI LEFT SHOULDER NONCONTRAST TECHNIQUE: Sagittal T2, coronal T1, T2 and proton density imaging. Axial gradient PDE imaging. CLINICAL INFORMATION: left shoulder pain COMPARISON: None. FINDINGS: Limited study due to patient motion due to pain Advanced arthritis AC joint. Moderate downsloping acromion with narrowing of the subacromial space. Subacromial spurring. Soft tissue edema and fluid at the AC joint. Subacromial subdeltoid fluid. Subchondral cystic changes involving the greater tuberosity. Advanced degenerative narrowing of the glenohumeral articulation. Chronic thinning of the distal supraspinatus which appears intact. Tendinopathy supraspinatus. Infraspinatus appears intact. Normal teres minor. Subscapularis tendon appears intact. Tiny biceps tendon or remnant within the bicipital groove. Normal bone marrow signal in the glenoid. No other significant findings considering motion artifact. MR/MR shoulder LT wo con* [id number] IMPRESSION: Some images are limited due to motion artifact 1. Moderate to advanced degenerative changes of the AC joint and glenohumeral joint. 2. Fluid and edema at the AC joint with subacromial subdeltoid fluid. Impingem ent distal supraspinatus. 3. Chronic thinning of the distal supraspinatus with tendinopathy. 4. Rotator cuff otherwise appears intact. 5. Only a tiny biceps tendon or biceps tendon remnant identified in the bicipi avery groove. 6. Subchondral cystic changes involving the greater tuberosity. 7. No other acute findings.
== END 2024-12-28 12:53 | disposition home or self-care (01) ==
PROVIDERS: PCP Family Medicine; Visit Provider Student in an Organized Health Care Education/Training Program
DX: S46.002A Unspecified injury of muscle(s) and tendon(s) of the rotator cuff of left shoulder, initial encounter (principal); M75.42 Impingement syndrome of left shoulder; M19.012 Primary osteoarthritis, left shoulder; R93.6 Abnormal findings on diagnostic imaging of limbs; X58.XXXA Exposure to other specified factors, initial encounter; M77.8 Other enthesopathies, not elsewhere classified
CPT/HCPCS: 73221

== ENCOUNTER → 2025-01-01 10:01 | Outpatient (BNVA) | payer MEDICARE, MEDICAID, SELFPAY | PROVIDERS: PCP Family Medicine; Visit Provider Anesthesiology Pain Medicine | DX: Z53.9 Procedure and treatment not carried out, unspecified reason (principal) | CPT/HCPCS: 64490; 99398 ==

== ENCOUNTER → 2025-01-08 09:00 | Outpatient (BNVA) | payer MEDICARE, MEDICAID, SELFPAY | PROVIDERS: PCP Family Medicine; Visit Provider Student in an Organized Health Care Education/Training Program | DX: M17.11 Unilateral primary osteoarthritis, right knee (principal) | CPT/HCPCS: 20610; 99213; J3301; J9999 ==

== ENCOUNTER → 2025-01-16 10:36 | Outpatient (BNVA) | payer MEDICARE, MEDICAID, SELFPAY | PROVIDERS: PCP Family Medicine; Visit Provider Anesthesiology Pain Medicine | DX: M47.812 Spondylosis without myelopathy or radiculopathy, cervical region (principal); M54.2 Cervicalgia; G89.29 Other chronic pain | CPT/HCPCS: 64490; 64491; 64492; J3490; J9999 ==

== ENCOUNTER → 2025-01-25 10:16 | Outpatient (BNVA) | payer MEDICARE, MEDICAID, SELFPAY | PROVIDERS: PCP Family Medicine; Visit Provider Family Medicine | DX: I10 Essential (primary) hypertension (principal); E78.2 Mixed hyperlipidemia; K14.8 Other diseases of tongue; M79.671 Pain in right foot; M79.672 Pain in left foot; M19.90 Unspecified osteoarthritis, unspecified site; Z12.39 Encounter for other screening for malignant neoplasm of breast; R73.01 Impaired fasting glucose; G89.29 Other chronic pain; R60.0 Localized edema | CPT/HCPCS: 80053; 80061; 83036; 86038; 86140; 86431 ==

== ENCOUNTER 2025-01-30 11:01 | Outpatient (CLI) | payer MEDICARE, MEDICAID, SELFPAY ==
--- NOTE | 2025-01-30 11:00 | MM_ITS ---
WS: [id number] VIEWS: MLO and CC views both breasts. 3D digital tomosynthesis is also included in this exam. Comparison made with prior exam of 01/26/2024, 11/12/2022 and 10/20/2017.. Findings: There are scattered areas of fibroglandular density. No suspicious mass, tumor calcification or architectural distortion. Stable appearing nodules in the LEFT breast. MM/MM scr BI tomosynthesis [id number] Impression: BI-RADS: 2 - Benign. FOLLOW-UP: 1 Year Follow-up This mammogram was also analyzed by the Computer Aided Detection System R2 Imag e Residue Furnace Operator.
== END 2025-01-30 11:02 | disposition home or self-care (01) ==
LOC: RAD 11:02
PROVIDERS: PCP Family Medicine; Visit Provider Family Medicine
DX: Z12.31 Encounter for screening mammogram for malignant neoplasm of breast (principal); M19.012 Primary osteoarthritis, left shoulder; R92.323 Mammographic fibroglandular density, bilateral breasts; N64.89 Other specified disorders of breast; R93.89 Abnormal findings on diagnostic imaging of other specified body structures
CPT/HCPCS: 73030; 77063; 77067

== ENCOUNTER → 2025-02-04 10:41 | Outpatient (BNVA) | payer MEDICARE, MEDICAID, SELFPAY | PROVIDERS: PCP Family Medicine; Visit Provider Anesthesiology Pain Medicine | DX: M54.2 Cervicalgia (principal); G89.29 Other chronic pain; M54.9 Dorsalgia, unspecified; M54.12 Radiculopathy, cervical region; M47.816 Spondylosis without myelopathy or radiculopathy, lumbar region; I50.22 Chronic systolic (congestive) heart failure | CPT/HCPCS: 99214 ==

== ENCOUNTER → 2025-02-11 08:45 | Outpatient (BNVA) | payer MEDICARE, MEDICAID, SELFPAY | PROVIDERS: PCP Family Medicine; Visit Provider Podiatrist Foot & Ankle Surgery | DX: M79.671 Pain in right foot (principal); M79.672 Pain in left foot; M19.071 Primary osteoarthritis, right ankle and foot; M21.611 Bunion of right foot; M21.612 Bunion of left foot; M21.621 Bunionette of right foot; M21.622 Bunionette of left foot; M65.871 Other synovitis and tenosynovitis, right ankle and foot | CPT/HCPCS: 73630; 99204 ==

== ENCOUNTER → 2025-02-25 10:23 | Outpatient (BNVA) | payer MEDICARE, MEDICAID, SELFPAY | PROVIDERS: PCP Family Medicine; Visit Provider Family Medicine | DX: I10 Essential (primary) hypertension (principal); I50.22 Chronic systolic (congestive) heart failure | CPT/HCPCS: 80048 ==

== ENCOUNTER → 2025-02-28 10:36 | Outpatient (BNVA) | payer MEDICARE, MEDICAID, SELFPAY | PROVIDERS: PCP Family Medicine; Visit Provider Nurse Practitioner Family | DX: M54.2 Cervicalgia (principal); G89.29 Other chronic pain; M54.12 Radiculopathy, cervical region; M47.816 Spondylosis without myelopathy or radiculopathy, lumbar region; I50.22 Chronic systolic (congestive) heart failure | CPT/HCPCS: 99214 ==

== ENCOUNTER → 2025-03-05 10:51 | Outpatient (BNVA) | payer MEDICARE, MEDICAID, SELFPAY | PROVIDERS: PCP Family Medicine; Visit Provider Student in an Organized Health Care Education/Training Program | DX: M25.511 Pain in right shoulder (principal); M75.41 Impingement syndrome of right shoulder | CPT/HCPCS: 20610; 73030; 99214; J3301; J9999 ==

== ENCOUNTER → 2025-03-12 13:40 | Outpatient (BNVA) | payer MEDICARE, MEDICAID, SELFPAY | PROVIDERS: PCP Family Medicine; Visit Provider Anesthesiology Pain Medicine | DX: M47.812 Spondylosis without myelopathy or radiculopathy, cervical region (principal); M54.2 Cervicalgia; G89.29 Other chronic pain | CPT/HCPCS: 64490; 64491; 64492; J3490; J9999 ==

== ENCOUNTER 2025-03-19 10:52 | Outpatient (CLI) | payer MEDICARE, MEDICAID, SELFPAY | END 2025-03-19 10:53 | disposition home or self-care (01) | LOC: SPT 10:52 | PROVIDERS: PCP Family Medicine; Visit Provider Podiatrist Foot & Ankle Surgery | DX: Z46.89 Encounter for fitting and adjustment of other specified devices (principal); M21.611 Bunion of right foot; M21.612 Bunion of left foot; M65.90 Unspecified synovitis and tenosynovitis, unspecified site; M19.079 Primary osteoarthritis, unspecified ankle and foot | CPT/HCPCS: L3030 ==

== ENCOUNTER → 2025-03-19 10:56 | Outpatient (BNVA) | payer MEDICARE, MEDICAID, SELFPAY | PROVIDERS: PCP Family Medicine; Visit Provider Student in an Organized Health Care Education/Training Program | DX: M75.41 Impingement syndrome of right shoulder (principal); M25.562 Pain in left knee | CPT/HCPCS: 73560; 73565 ==

== ENCOUNTER 2025-03-29 07:04 | Outpatient (CLI) | payer MEDICARE, MEDICAID, SELFPAY ==
--- NOTE | 2025-03-29 07:15 | MR_ITS ---
WS: [id number] MRI RIGHT SHOULDER HISTORY: right shoulder pain COMPARISON: Radiograph 03/05/2025 TECHNIQUE: Multiplanar sequences of the shoulder joint are submitted. Moderate AC joint arthritis. AC joint is narrowed with hypertrophic osteophytes. Small amount of fluid in the subacromial and subdeltoid bursa. Moderate to severe subacromial impingement due to high riding humeral head. Mild remodeling of the distal acromion. No os acromion. Very tiny residual biceps tendon in the bicipital groove. High riding humeral head abuts the undersurface of the acromion. Subchondral cysts over the greater tuberosity. Moderate to severe atrophy of the supraspinatus muscle. Tendon is torn and retracted medial to the humeral head. Distal supraspinatus tendon is atrophic with fatty replacement. No tear is identified. Moderate narrowing of the coracohumeral interval. There is mild fatty replacement of the subscapularis muscle. Infraspinatus tendon is difficult to visualize its entirety but is not completely torn. No labral tear is identified. MR/MR shoulder RT wo con* [id number] IMPRESSION: 1. Limited quality MRI evaluation of the shoulder. 2. Complete supraspinatus tendon tear with retraction medial to the humeral he ad. 3. Moderate to severe atrophy of the supraspinatus muscle with mild atrophy of the subscapularis muscle. 4. Atrophic subscapularis tendon. 5. Moderate AC joint arthritis. 6. Very tiny residual biceps tendon remaining in the bicipital groove. Suspect the remaining biceps tendon is torn and retracted.
== END 2025-03-29 07:05 | disposition home or self-care (01) ==
PROVIDERS: PCP Family Medicine; Visit Provider Student in an Organized Health Care Education/Training Program
DX: M75.41 Impingement syndrome of right shoulder (principal); M54.2 Cervicalgia; G89.29 Other chronic pain; M54.12 Radiculopathy, cervical region; M47.816 Spondylosis without myelopathy or radiculopathy, lumbar region; I50.22 Chronic systolic (congestive) heart failure
CPT/HCPCS: 73221; 99214

== ENCOUNTER → 2025-04-08 13:05 | Outpatient (BNVA) | payer MEDICARE, MEDICAID, SELFPAY | PROVIDERS: PCP Family Medicine; Visit Provider Anesthesiology Pain Medicine | DX: M54.9 Dorsalgia, unspecified (principal); M54.2 Cervicalgia; G89.29 Other chronic pain; M54.12 Radiculopathy, cervical region; M47.816 Spondylosis without myelopathy or radiculopathy, lumbar region | CPT/HCPCS: 99214 ==

== ENCOUNTER 2025-04-15 14:25 | Inpatient (IN) | payer MEDICARE, MEDICAID, SELFPAY ==
[2025-04-15] VITALS (8 sets, daily range): BP systolic 105–139; BP diastolic 43–72; PULSE 48–74; RESP 16–18; TEMP 36.3–36.6; O2SAT 92–98; BMI 51.0
--- NOTE | 2025-04-15 14:54 | ECG_ITS ---
[facility] Test Date: 2025-04[facility]15 Pat Name: Selena Salgado Department: Room: Gender: Female Fur Trimming Machine Operator: : 1950 Requested By: Howard Boyce Order Number: [id number] Veronica MD: Georges Green M.D. Measurements Intervals [place] Rate: 55 P: 53 MN: 165 QRS: 45 QRSD: 98 T: 52 QT: 424 QTc: 408 Interpretive Statements SINUS BRADYCARDIA INCOMPLETE RIGHT BUNDLE BRANCH BLOCK [90+ ms QRS DURATION, TERMINAL R IN V1/V2, 40+ ms S IN I/aVL/V4/V5/V6] Compared to ECG 11/24/2024 07:25:47 No significant changes Electronically Signed On 04-16-2025 17:22:04 CDT by Georges Green M.D. [email or web address] [id number]
--- NOTE | 2025-04-15 14:54 | XR_ITS ---
WS: [id number] Exam: XR chest 1V portable [id number] Date/Time of Exam: 04/15/2025 3:15 PM Reason For Exam: chest pain Comparison 11/24/2024. Lungs are clear and fully inflated. Normal cardiomediastinal silhouette and regional bony elements. No pleural effusions. Degenerative change of both shoulders. XR/XR chest 1V portable [id number] IMPRESSION: 1. No acute cardiopulmonary finding.
--- NOTE | 2025-04-15 14:54 | W.ED.CHESTPA ---
HPI - Chest Pain General: Chief Complaint: Chest Pain Stated Complaint: chest pain Time Seen by Provider: 04/15/25 14:39 History of Present Illness: 74-year-old female presents emergency room with episode of chest discomfort. Woke her up last night it was relieved by nitro she had 1 other episode in the last week similar that was also relieved by nitro. She has known coronary artery disease had an angiogram in August 2024 with multivessel disease 1 significant lesion was stented. . Prior to these 2 episodes she has not had any other chest discomfort in the last few months. Associated symptoms: Deny abdominal pain, dyspnea or fever(s) Related Data Home Medications ?Medication ?Instructions ?Recorded ?Confirmed acetaminophen 500 mg tablet 500 mg PO Q6H PRN fever or pain 07/26/22 04/08/25 (Tylenol Extra Strength) multivitamin 1 tab PO DAILY 10/06/22 04/08/25 escitalopram oxalate 20 mg tablet 20 mg PO 199907/08/24 04/08/25 trazodone 100 mg tablet 100 mg PO 199907/08/24 04/08/25 famotidine 20 mg tablet 20 mg PO BID 09/03/24 04/08/25 hydrocortisone 1 % topical cream 1 applic topical TID PRN Itching 09/03/24 04/08/25 vitamin B complex 1 cap PO DAILY 09/03/24 04/08/25 vitamin E (dl, acetate) 180 mg 180 mg PO DAILY 09/03/24 04/08/25 (400 unit) capsule levocetirizine 5 mg tablet 5 mg PO DAILY 09/07/24 04/08/25 levothyroxine 150 mcg tablet 150 mcg PO QAM 09/07/24 04/08/25 atorvastatin 40 mg tablet 40 mg PO DAILY 11/23/24 04/08/25 furosemide 20 mg tablet 40 mg PO DAILY edema 12/18/24 04/08/25 atenolol 25 mg tablet 25 mg PO DAILY 12/20/24 04/08/25 benzocaine 20 %-menthol 0.26 % See Rx Instructions .Route .COMPLEX 12/20/24 04/08/25 mouth mucosal gel (Orajel 2X Toothache-Gum) promethazine-DM 6.25 mg-15 mg/5 mL 10 ml PO Q6H PRN Cough 12/20/24 04/08/25 oral syrup sodium chloride 0.65 % nasal spray 1 spray intranasal DAILY 12/20/24 04/08/25 aerosol (Deep Sea Nasal) Previous Rx's ?Medication ?Instructions ?Recorded omeprazole 20 mg capsule,delayed 20 mg PO DAILY PRN reflux 90 days 01/11/24 release #90 caps potassium chloride 20 mEq 20 meq PO DAILY PRN with lasix 90 01/11/24 tablet,extended release days #90 tabs pramipexole 0.5 mg tablet 0.5 mg PO BID 90 days #180 tabs 01/11/24 cyclobenzaprine 5 mg tablet 5 mg PO TID PRN muscle spasm 90 04/20/24 days #90 tabs diclofenac sodium 1 % topical gel 4 g topical QID #100 grams 06/21/24 (Voltaren Arthritis Pain) aspirin 81 mg capsule 81 mg PO DAILY #90 caps 07/08/24 polyethylene glycol 3350 17 4 g PO DAILY #850 grams 07/26/24 gram/dose oral powder (Miralax) albuterol sulfate 90 mcg/actuation 1 inh inhalation QID PRN shortness 07/30/24 aerosol inhaler of breath or wheezing #6.7 grams fluticasone propionate 50 2 spray intranasal DAILY #16 grams 07/30/24 mcg/actuation nasal spray,suspension (Flonase Allergy Relief) nystatin 100,000 unit/gram topical 1 applic topical BID PRN rash 7 07/30/24 ointment days #30 grams nitroglycerin 0.4 mg sublingual 0.4 mg sublingual Q5M PRN chest 08/24/24 tablet pain #30 tabs clopidogrel 75 mg tablet (Plavix) 75 mg PO DAILY #30 tabs 09/07/24 irbesartan 150 mg tablet 150 mg PO DAILY #90 tabs 09/18/24 lidocaine HCl 2 % mucosal solution 1 applic mucous membrane QID PRN 01/25/25 (Lidocaine Viscous) pain #100 mL Sole Supports #1 ea 02/11/25 hydrochlorothiazide 25 mg tablet 25 mg PO DAILY #90 tabs 02/12/25 tramadol 50 mg tablet 50 mg PO Q12H PRN pain #60 tabs 02/18/25 hydrocodone 5 mg-acetaminophen 325 1 tab PO BID PRN worse shoulder 03/19/25 mg tablet pain 30 days #30 tabs diazepam 2 mg tablet (Valium) 2 mg PO ONCE PRN anxiety #2 tabs 03/29/25 Allergies Allergy/AdvReac Type Severity Reaction Status Date / Time adhesive tape Allergy Intermediate ALGY-Rash Verified 03/29/25 08:02 meperidine (From Demerol) Allergy Mild ALGY-RASH Verified 03/29/25 08:02 morphine Allergy Mild ALGY-RASH Verified 03/29/25 08:02 pantoprazole (From Protonix) Allergy Mild ALGY-RASH Verified 03/29/25 08:02 imipramine AdvReac Mild ADR-FLU Verified 03/29/25 08:02 LIKE SYMPTOMS promethazine (From Phenergan) AdvReac Mild ADR-RESTLESS Verified 03/29/25 08:02 LEGS celecoxib (From Celebrex) AdvReac ADR-INCREASED Verified 03/29/25 08:02 APPETITE lisinopril AdvReac ADR-COUGH Verified 03/29/25 08:02 Review of Systems Const: Denies: fever(s) or chills Card: Reports: chest pain Resp: Denies: dyspnea GI: Denies: abdominal pain : Denies: dysuria, urinary frequency or urinary urgency Musc: Denies: neck pain or back pain Skin/Breast: Denies: rash PFSH ED PFSH: Medical History Bariatric surgery status Arthritis Pain in both feet Tongue lesion Family hx of colon cancer father Coronary artery disease 2 stents 09/16 Insomnia Pain management contract signed 1.31.25 tramadol; 4.22.25 hydrocodone Encounter for chronic pain management tramadol legacy patient; now hydrocodone prn worst pain can't take NSAIDs; failed gabapentin and pregabalin DANITZA on CPAP Bilateral lower extremity edema Morbid obesity with BMI of 45.0-49.9, adult Depression Heart palpitations CHF (congestive heart failure) Degenerative disk disease Cervical radiculopathy at C6 Hyperlipidemia Restless leg syndrome GERD (gastroesophageal reflux disease) Hypothyroidism Benign hypertension Surgical History Hx of cardiac catheterization 11.3.24 2 stents OZH H/O gastric sleeve 2010 S/P knee replacement left S/P tonsillectomy and adenoidectomy S/P cholecystectomy S/P cataract surgery bilateral History of left mastoidectomy Hx of section X 2 S/P appendectomy H/O tubal ligation H/O tympanostomy H/O: hysterectomy w/ BSO done for fibroids H/O rhinoplasty History of carpal tunnel surgery bilateral H/O decompression of ulnar nerve bilateral Family History Brother Prostate cancer Father Colon cancer Mother Brain cancer Other Cancer Diabetes Social History Smoking and tobacco/nicotine status: never used tobacco/nicotine Second hand smoke exposure: No Alcohol intake: never Substance/Drug Use: never Adopted: No Housing: Assisted Living Facility Marital status: Marital status details: they live at [facility] Number of children: 3 Highest education level completed: High School Graduate service: No Current occupational status: retired Current occupational exposures/hazards: Yes 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 Female Reproductive History: Spontaneous abortions: No Physical Exam Const: GENERAL APPEARANCE: cooperative ORIENTATION/CONSCIOUSNESS: Yes awake, Yes oriented to person, Yes oriented to place and Yes oriented to time HENMT: COMMON NORMALS: normocephalic, atraumatic and hearing grossly normal bilaterally HEAD & SCALP: normocephalic and atraumatic Resp: COMMON NORMALS: normal respiratory effort, No retractions, No use of accessory muscles and clear to auscultation bilaterally AUSCULTATION: clear to auscultation bilaterally Cardio: COMMON NORMALS: regular rate, regular rhythm and No murmurs present (Cardio) RATE: regular rate RHYTHM: regular rhythm GI: COMMON NORMALS: Soft to palpation and No hepatosplenomegaly present AUSCULTATION: Yes normoactive bowel sounds PALPATION: Yes Soft to palpation, No Tenderness to palpation present (GI), No Guarding due to palpation present (GI) and Yes No hepatosplenomegaly present Extremity: COMMON NORMALS: normal to inspection, capillary refill normal, no clubbing, cyanosis or edema, no calf tenderness and no pedal edema Neuro: SENSORIUM/ORIENTATION: Yes oriented to person, Yes oriented to place and Yes oriented to time Skin: COMMON NORMALS: no rashes or lesions noted GENERAL SKIN EXAM: no rashes or lesions noted Course Vital Signs: Vital signs: Vital Signs Temperature 97.9 F 04/15/25 14:26 Pulse Rate 51 L 04/15/25 15:30 Respiratory Rate 16 04/15/25 14:26 Blood Pressure 120/58 04/15/25 15:30 Pulse Oximetry 92 04/15/25 15:30 Oxygen Delivery Me thod Nasal Cannula 04/15/25 15:30 Oxygen Flow Rate 1 04/15/25 15:30 MDM - Chest Pain Medical Records I reviewed the patient's medical records. Lab Data I reviewed the patient's lab results. 04/15/25 15:20 04/15/25 15:20 Radiology Impressions Chest X-Ray 04/15/25 14:54 IMPRESSION: 1. No acute cardiopulmonary finding. Laboratory Results WBC 13.97 10^3/uL (3.29-11.43) H 04/15/25 15:20 RBC 4.55 10^6/uL (3.85-5.65) 04/15/25 15:20 Hgb 11.70 g/dL (11.27-16.99) 04/15/25 15:20 Hct 38.2 % (36-47) 04/15/25 15:20 MCV 84.0 fl (85-98) L 04/15/25 15:20 MCH 25.7 pg (27-33) L 04/15/25 15:20 MCHC 30.6 g/dL (30-55) 04/15/25 15:20 RDW 17.3 % (12.1-15.1) H 04/15/25 15:20 Plt Count 199 10^3/cmm (157-399) 04/15/25 15:20 MPV 9.7 fL (7.4-10.4) 04/15/25 15:20 Neut % (Auto) 81.2 % 04/15/25 15:20 Lymph % (Auto) 12.2 % 04/15/25 15:20 Lake % (Auto) 5.9 % 04/15/25 15:20 Eos % (Auto) 0.1 % 04/15/25 15:20 Baso % (Auto) 0.1 % 04/15/25 15:20 Neut # (Auto) 11.35 10^3/uL (1.8-7.7) H 04/15/25 15:20 Lymph # (Auto) 1.7 10^3/uL (0.8-4.8) 04/15/25 15:20 Lake # (Auto) 0.8 10^3/uL (0.2-0.9) 04/15/25 15:20 Eos # (Auto) 0.0 10^3/uL (0.0-0.8) 04/15/25 15:20 Baso # (Auto) 0.0 10^3/uL (0.0-0.1) 04/15/25 15:20 Nucleated RBC % (auto) 0 % 04/15/25 15:20 Nucleated RBCs # 0.0 /100WBC 04/15/25 15:20 Sodium 141 mmol/L (136-145) 04/15/25 15:20 Potassium 4.1 mmol/L (3.5-5.1) 04/15/25 15:20 Chloride 99 mmol/L (98-107) 04/15/25 15:20 Carbon Dioxide 29 mmol/L (22-29) 04/15/25 15:20 Anion Gap 17.1 (5-19) 04/15/25 15:20 BUN 24 mg/dL (8-23) H 04/15/25 15:20 Creatinine 0.7 mg/dL (0.5-0.9) 04/15/25 15:20 GFR Calculation Not Reportable 04/15/25 15:20 Glucose 128 mg/dL (65-115) H 04/15/25 15:20 Calculated Osmolality 298 mOsm/kg (285-295) H 04/15/25 15:20 Calcium 9.3 mg/dL (8.5-10.5) 04/15/25 15:20 Total Bilirubin 0.5 mg/dL (0.15-1.2) 04/15/25 15:20 AST 14 U/L (0-32) 04/15/25 15:20 ALT 15 U/L (0-33) 04/15/25 15:20 Alkaline Phosphatase 96 U/L (35-105) 04/15/25 15:20 Troponin T Baseline 14 ng/L (0-10) H 04/15/25 15:20 Total Protein 5.4 g/dL (6.6-8.7) L 04/15/25 15:20 Albumin 3.8 g/dL (3.5-5.2) 04/15/25 15:20 Globulin 1.6 g/dL (1.3-4.6) 04/15/25 15:20 Coding Level of Care Code ED Wellness Program Manager for Hossein Doe
[2025-04-15 15:27] LABS: Basophils % 0.1 %; Eosinophils % 0.1 %; Hematocrit 38.2 % (36-47); Lymphocytes # 1.7 10^3/uL (0.8-4.8); Lymphocytes % 12.2 %; Mean Corpuscular HGB Conc 30.6 g/dL (30-55); Mean Corpuscular Hemoglobin 25.7 pg (27-33); Mean Platelet Volume 9.7 fL (7.4-10.4); Monocytes # 0.8 10^3/uL (0.2-0.9); Monocytes % 5.9 %; Neutrophils # 11.35 10^3/uL (1.8-7.7); Neutrophils % 81.2 %; Nucleated Red Blood Cells % 0 %; Platelet Count 199 10^3/cmm (157-399); Red Blood Count 4.55 10^6/uL (3.85-5.65); Red Cell Distribution Width 17.3 % (12.1-15.1); White Blood Count 13.97 10^3/uL (3.29-11.43)
[2025-04-15 15:45] LABS: Troponin(5th) Baseline 14 ng/L (0-10)
[2025-04-15 15:50] LABS: Alanine Aminotransferase 15 U/L (0-33); Albumin Level 3.8 g/dL (3.5-5.2); Alkaline Phosphatase 96 U/L (35-105); Anion Gap 17.1 (5-19); Aspartate Amino Transferase 14 U/L (0-32); Blood Urea Nitrogen 24 mg/dL (8-23); Calcium 9.3 mg/dL (8.5-10.5); Carbon Dioxide 29 mmol/L (22-29); Chloride 99 mmol/L (98-107); Creatinine Clr Calc Pharmacy 75.6454; Globulin 1.6 g/dL (1.3-4.6); Glucose 128 mg/dL (65-115); Osmolality Calculated 298 mOsm/kg (285-295); Potassium 4.1 mmol/L (3.5-5.1); Sodium 141 mmol/L (136-145); Total Bilirubin 0.5 mg/dL (0.15-1.2); Total Protein 5.4 g/dL (6.6-8.7)
--- NOTE | 2025-04-15 16:54 | ECG_ITS ---
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 Measurements Intervals [place] Rate: 47 P: 27 VT: 153 QRS: 21 QRSD: 98 T: 30 QT: 474 QTc: 423 Interpretive Statements SINUS BRADYCARDIA INCOMPLETE RIGHT BUNDLE BRANCH BLOCK [90+ ms QRS DURATION, TERMINAL R IN V1/V2, 40+ ms S IN I/aVL/V4/V5/V6] Compared to ECG 04/15/2025 14:34:30 No significant changes Electronically Signed On 04-16-2025 17:46:19 CDT by Georges Green M.D. [email or web address]
[2025-04-15] MEDS: nitroglycerin 1 gm/inch oint Pkt 0.5 INCH TOPICAL (17:31)
--- NOTE | 2025-04-15 18:05 | PM.HP ---
Providers/Chief Complaint Admitting Physician: Bruce Robbins MD Primary Care Provider: Renetta Nugent MD Chief Complaint: chest pain History of Present Illness Selena Salgado is a 74 year old female with a past medical history of CAD status post tenting x 2, hypertension, hyperlipidemia who presents [facility] for chest pain. Patient reports anterior chest pain, radiating down left arm, radiating to her neck, no associate shortness of breath, no diaphoresis, she does report a week history of lightheadedness, and dizziness at time, she is using her medications as prescribed, denies any shortness of breath with exertion, no edema Review of Systems Const: Denies: fever(s) Card: Denies: chest pain Resp: Denies: dyspnea Medications/Allergies Home Medications ?Medication ?Instructions ?Recorded ?Confirmed ?Last Taken ?Type acetaminophen 500 mg tablet 500 mg PO Q6H PRN fever or pain 07/26/22 04/08/25 12/20/24 History (Tylenol Extra Strength) multivitamin 1 tab PO DAILY 10/06/22 04/08/25 12/20/24 History omeprazole 20 mg capsule,delayed 20 mg PO DAILY PRN reflux 90 days 01/11/24 04/08/25 12/20/24 Rx release #90 caps potassium chloride 20 mEq 20 meq PO DAILY PRN with lasix 01/11/24 04/08/25 12/20/24 Rx tablet,extended release days #90 tabs pramipexole 0.5 mg tablet 0.5 mg PO BID 90 days #180 tabs 01/11/24 04/08/25 12/20/24 Rx cyclobenzaprine 5 mg tablet 5 mg PO TID PRN muscle spasm 04/20/24 04/08/25 12/20/24 Rx days #90 tabs diclofenac sodium 1 % topical gel 4 g topical QID #100 grams 06/21/24 04/08/25 12/20/24 Rx (Voltaren Arthritis Pain) aspirin 81 mg capsule 81 mg PO DAILY #90 caps 07/08/24 04/08/25 12/20/24 Rx escitalopram oxalate 20 mg tablet 20 mg PO 199907/08/24 04/08/25 12/20/24 History trazodone 100 mg tablet 100 mg PO 199907/08/24 04/08/2525 History polyethylene glycol 3350 17 4 g PO DAILY #850 grams 07/26/24 04/08/25 12/20/24 Rx gram/dose oral powder (Miralax) albuterol sulfate 90 mcg/actuation 1 inh inhalation QID PRN shortness 07/30/24 04/08/25 12/20/24 Rx aerosol inhaler of breath or wheezing #6.7 grams fluticasone propionate 50 2 spray intranasal DAILY #16 grams 07/30/24 04/08/25 12/20/24 Rx mcg/actuation nasal spray,suspension (Flonase Allergy Relief) nystatin 100,000 unit/gram topical 1 applic topical BID PRN rash 7 07/30/24 04/08/25 12/20/24 Rx ointment days #30 grams nitroglycerin 0.4 mg sublingual 0.4 mg sublingual Q5M PRN chest 08/24/24 04/08/25 Unknown Rx tablet pain #30 tabs famotidine 20 mg tablet 20 mg PO BID 09/03/24 04/08/25 12/20/24 History hydrocortisone 1 % topical cream 1 applic topical TID PRN Itching 09/03/24 04/08/25 12/20/24 History vitamin B complex 1 cap PO DAILY 09/03/24 04/08/25 12/20/24 History vitamin E (dl, acetate) 180 mg 180 mg PO DAILY 09/03/24 04/08/25 12/20/24 History (400 unit) capsule clopidogrel 75 mg tablet (Plavix) 75 mg PO DAILY #30 tabs 09/07/24 04/08/25 12/20/24 Rx levocetirizine 5 mg tablet 5 mg PO DAILY 09/07/24 04/08/25 12/20/24 History levothyroxine 150 mcg tablet 150 mcg PO QAM 09/07/24 04/08/25 12/25/24 History irbesartan 150 mg tablet 150 mg PO DAILY #90 tabs 09/18/24 04/08/25 12/20/24 Rx atorvastatin 40 mg tablet 40 mg PO DAILY 11/23/24 04/08/25 12/20/24 History furosemide 20 mg tablet 40 mg PO DAILY edema 12/18/24 04/08/25 12/20/24 History atenolol 25 mg tablet 25 mg PO DAILY 12/20/24 04/08/25 12/25/24 History benzocaine 20 %-menthol 0.26 % See Rx Instructions .Route .COMPLEX 12/20/24 04/08/25 12/20/24 History mouth mucosal gel (Orajel 2X Toothache-Gum) promethazine-DM 6.25 mg-15 mg/5 mL 10 ml PO Q6H PRN Cough 12/20/24 04/08/25 12/20/24 History oral syrup sodium chloride 0.65 % nasal spray 1 spray intranasal DAILY 12/20/24 04/08/25 12/20/24 History aerosol (Deep Sea Nasal) lidocaine HCl 2 % mucosal solution 1 applic mucous membrane QID PRN 01/25/25 04/08/25 Unknown Rx (Lidocaine Viscous) pain #100 mL Sole Supports #1 ea 02/11/25 04/08/25 Unknown Rx hydrochlorothiazide 25 mg tablet 25 mg PO DAILY #90 tabs 02/12/25 04/08/25 Unknown Rx tramadol 50 mg tablet 50 mg PO Q12H PRN pain #60 tabs 02/18/25 04/08/25 Unknown Rx hydrocodone 5 mg-acetaminophen 325 1 tab PO BID PRN worse shoulder 03/19/25 04/08/25 Unknown Rx mg tablet pain 30 days #30 tabs diazepam 2 mg tablet (Valium) 2 mg PO ONCE PRN anxiety #2 tabs 03/29/25 04/08/25 Unknown Rx Allergies Allergy/AdvReac Type Severity Reaction Status Date / Time adhesive tape Allergy Intermediate ALGY-Rash Verified 03/29/25 08:02 meperidine (From Demerol) Allergy Mild ALGY-RASH Verified 03/29/25 08:02 morphine Allergy Mild ALGY-RASH Verified 03/29/25 08:02 pantoprazole (From Protonix) Allergy Mild ALGY-RASH Verified 03/29/25 08:02 imipramine AdvReac Mild ADR-FLU Verified 03/29/25 08:02 LIKE SYMPTOMS promethazine (From Phenergan) AdvReac Mild ADR-RESTLESS Verified 03/29/25 08:02 LEGS celecoxib (From Celebrex) AdvReac ADR-INCREASED Verified 03/29/25 08:02 APPETITE lisinopril AdvReac ADR-COUGH Verified 03/29/25 08:02 PFSH Acute PFSH: Medical History Bariatric surgery status Arthritis Pain in both feet Tongue lesion Family hx of colon cancer father Coronary artery disease 2 stents 09/16 Insomnia Pain management contract signed 11.23.24 tramadol; 02.12.25 hydrocodone Encounter for chronic pain management tramadol legacy patient; now hydrocodone prn worst pain can't take NSAIDs; failed gabapentin and pregabalin DANITZA on CPAP Bilateral lower extremity edema Morbid obesity with BMI of 45.0-49.9, adult Depression Heart palpitations CHF (congestive heart failure) Degenerative disk disease Cervical radiculopathy at C6 Hyperlipidemia Restless leg syndrome GERD (gastroesophageal reflux disease) Hypothyroidism Benign hypertension Surgical History Hx of cardiac catheterization 08.26.24 2 stents [facility] H/O gastric sleeve 2010 S/P knee replacement left S/P tonsillectomy and adenoidectomy S/P cholecystectomy S/P cataract surgery bilateral History of left mastoidectomy Hx of section X 2 S/P appendectomy H/O tubal ligation H/O tympanostomy H/O: hysterectomy w/ BSO done for fibroids H/O rhinoplasty History of carpal tunnel surgery bilateral H/O decompression of ulnar nerve bilateral Family History Brother Prostate cancer Father Colon cancer Mother Brain cancer Other Cancer Diabetes Social History Smoking and tobacco/nicotine status: never used tobacco/nicotine Second hand smoke exposure: No Alcohol intake: never Substance/Drug Use: never Adopted: No Housing: Assisted Living Facility Marital status: Marital status details: they live at [facility] Number of children: 3 Highest education level completed: High School Graduate service: No Current occupational status: retired Current occupational exposures/hazards: Yes 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 Reproductive History: Spontaneous abortions: No Vitals/I&O/Wt Last Vital Signs Temp 97.9 F 04/15/25 14:26 Pulse 59 L 04/15/25 17:31 Resp 16 04/15/25 14:26 BP 136/59 04/15/25 17:31 Pulse Ox 93 04/15/25 17:00 O2 Del Method Room Air 04/15/25 17:00 O2 Flow Rate 1 04/15/25 15:30 Weight last 48 hrs Weight 122.47 kg Physical Exam Const: COMMON NORMALS: no acute distress and patient oriented x3 Eye: COMMON NORMALS: Equal, round and reactive pupils present Resp: COMMON NORMALS: normal respiratory effort, No retractions, No use of accessory muscles and clear to auscultation bilaterally AUSCULTATION: clear to auscultation bilaterally Cardio: COMMON NORMALS: no JVD, regular rate, regular rhythm, S1 normal heart sound present and S2 normal heart sound present RATE: regular rate RHYTHM: regular rhythm HEART SOUNDS: S1 normal heart sound present and S2 normal heart sound present GI: COMMON NORMALS: Normal to inspection, nondistended, normoactive bowel sounds present, Soft to palpation and non-tender Extremity: COMMON NORMALS: no pedal edema Neuro: COMMON NORMALS: patient oriented x3, CN's II-XII intact bilaterally and moves all extremities Psych: COMMON NORMALS: mental status grossly normal Data 04/15/25 15:20 04/15/25 15:20 A&P Assessment and plan (1) Unstable angina: (2) Hyperlipidemia: (3) Hypothyroidism: (4) Morbid obesity with BMI of 45.0-49.9, adult: Plan Unstable angina Cath in August 2024 Diagnostic Findings * Left Main has no disease. * Proximal Left Anterior Descending: mild 40% stenosis, RAJ: 3 flow. * Mid Left Anterior Descending: mild 40% stenosis, RAJ: 3 flow. * Distal Left Anterior Descending: moderate 50% stenosis, RAJ: 3 flow. * Mid Right Coronary Artery to Distal Right Coronary Artery: significant 80% stenosis, RAJ: 3 flow. * Distal Circumflex: moderate 50% stenosis, RAJ: 3 flow. * Third Obtuse Marginal Branch Segment: significant 80% stenosis, RAJ: 3 flow. * Coronary angiography shows right dominance. Interventional Findings * Mid Right Coronary Artery to Distal Right Coronary Artery: 80% stenosis treated with a AB TREK 2.50X25 RX BALLOON, SHARON Arredondo NUBIA 3.0X38 QUINCY, SHARON Arredondo NUBIA 3.5X12 QUINCY, and SHARON TAYLOR EUPHORA RX [id number] BALLOON. 0% residual stenosis, RAJ: 3 flow Plan - Serial EKGs, serial troponins, telemetry monitoring - Cardiac echo - N.p.o. midnight for possible coronary angiogram tomorrow - Aspirin, statin, Plavix - Hold beta-ray given complaints of dizziness and bradycardia - Heparin drip - Full code - Lovenox for DVT prophylaxis PDMP PDMP Reviewed: Not Reviewed Attestations Medical Necessity Statement*: Patient requires hospitalization, inpatient, greater than 2 midnights for unstable angina Diagnoses Unstable angina I20.0 Mixed hyperlipidemia E78.2 Hyperlipidemia type: mixed hyperlipidemia Acquired hypothyroidism E03.9 Hypothyroidism type: acquired Morbid obesity with BMI of 45.0-49.9, adult E66.01; Z68.42
--- NOTE | 2025-04-15 18:18 | USCV_ITS ---
Selena Salgado Age: 74 Gender: F : 1950 Exam Date: 04/15/2025 22:04 Ordering Phys: Bruce Robbins MD Technologist: MARSHALL Exam Location: [facility] [place] Indication: chest pain, hx CAD s/p stents, HTN, HL, MORBID OBESITY BP: 119 / 72 HR: 62 Rhythm: Sinus Technical Quality: Adequate MEASUREMENTS (Male / Female) Normal Values 2D ECHO LV Diastolic Diameter PLAX 4.3 cm 4.2 - 5.9 / 3.9 - 5.3 cm IVS Diastolic Thickness 1.1 cm 0.6 - 1.0 / 0.6 - 0.9 cm IVS Systolic Thickness 1.7 cm LVPW Diastolic Thickness 1.3 cm 0.6 - 1.0 / 0.6 - 0.9 cm LVPW Systolic Thickness 1.8 cm LVOT Diameter 1.8 cm LV Ejection Fraction 2D Teich 57.6 % LV Ejection Fraction MOD 4C 66.0 % LV Ejection Fraction MOD 2C 68.0 % LV Ejection Fraction 2C AL 70.5 % LA Diameter 5.1 cm Aorta at Sinotubular Diameter 2.8 cm IVC Diameter 1.2 cm DOPPLER AV Peak Velocity 108.0 cm/s LVOT Peak Velocity 82.0 cm/s AV Area Cont Eq vti 2.2 cm squared AV Area Cont Eq pk 2.0 cm squared MV Peak Velocity 105.0 cm/s MV Area PHT 3.6 cm squared Mitral E to A Ratio 1.6 TV Peak Velocity 224.0 cm/s TV Peak E Velocity 46.0 cm/s PV Peak Velocity 91.0 cm/s FINDINGS Left Ventricle Left ventricle is normal size. LV systolic function is normal with EF of 65-70%. No regional wall motion abnormalities are seen. Mild left ventricular hypertrophy. Right Ventricle Normal in size and function Right Atrium Normal in size Left Atrium Normal in size Mitral Valve Structurally normal mitral valve. Mild mitral regurgitation. Aortic Valve Structurally normal aortic valve. No significant stenosis or regurgitation. Tricuspid Valve Mild tricuspid regurgitation. Pulmonary artery systolic pressure is normal. Pulmonic Valve Not well visualized Pericardium Normal Aorta Normal in size IVC Appears to be normal CONCLUSIONS LV systolic function is normal with EF of 65-70% Mild left ventricular hypertrophy Mild mitral regurgitation Mild tricuspid regurgitation Georges Green MD (Electronically Signed) Final Date: 16 April 2025 17:01 S
--- NOTE | 2025-04-15 18:32 | PC.NURSE ---
Patient transferred from ED to CSU via a bed at 1825.
[2025-04-15] MEDS: heparin 5,000 unit/mL INJ 1 mL IVP (18:37)
[2025-04-15] MEDS: heparin drip 25,000 UNIT/500 ML PREMIX 35 UNIT IV (18:39)
[2025-04-15 19:07] LABS: NT Pro B Type Natriuretic Pept 509 pg/mL (0-125)
[2025-04-15] MEDS: pramipexole 0.25 mg Tablet 0.5 MG PO (21:23)
[2025-04-15] MEDS: acetaminophen 325 mg Tablet 650 MG PO (21:23)
[2025-04-15] MEDS: escitalopram 10 mg Tablet 20 MG PO (21:24)
[2025-04-15] MEDS: famotidine 20 mg/2 mL INJ IVP (21:24)
[2025-04-15 21:35] LABS: Troponin 5 6HR 13.61 ng/L (0-10)
[2025-04-15 21:38] LABS: Troponin 5 6HR Delta -0.39 ng/L (0-12)
[2025-04-15] MEDS: trazodone 100 mg Tablet PO (23:44)
[2025-04-16] VITALS (10 sets, daily range): BP systolic 100–150; BP diastolic 47–89; PULSE 55–75; RESP 15–20; TEMP 36.4–36.9; O2SAT 91–98
[2025-04-16 00:46] LABS: Basophils % 0.2 %; Eosinophils % 0.3 %; Hematocrit 37.7 % (36-47); Lymphocytes # 4.1 10^3/uL (0.8-4.8); Lymphocytes % 28.9 %; Mean Corpuscular HGB Conc 30.5 g/dL (30-55); Mean Corpuscular Hemoglobin 25.7 pg (27-33); Mean Corpuscular Volume 84.3 fl (85-98); Mean Platelet Volume 9.6 fL (7.4-10.4); Monocytes # 1.2 10^3/uL (0.2-0.9); Monocytes % 8.5 %; Neutrophils # 8.87 10^3/uL (1.8-7.7); Neutrophils % 61.8 %; Nucleated Red Blood Cells % 0 %; Platelet Count 210 10^3/cmm (157-399); Red Blood Count 4.47 10^6/uL (3.85-5.65); Red Cell Distribution Width 17.3 % (12.1-15.1); White Blood Count 14.35 10^3/uL (3.29-11.43)
[2025-04-16 01:02] LABS: Alanine Aminotransferase 15 U/L (0-33); Albumin Level 3.5 g/dL (3.5-5.2); Alkaline Phosphatase 93 U/L (35-105); Anion Gap 11.9 (5-19); Aspartate Amino Transferase 13 U/L (0-32); Blood Urea Nitrogen 28 mg/dL (8-23); Calcium 9.6 mg/dL (8.5-10.5); Carbon Dioxide 33 mmol/L (22-29); Chloride 96 mmol/L (98-107); Creatinine Clr Calc Pharmacy 75.6454; Globulin 2.1 g/dL (1.3-4.6); Glucose 97 mg/dL (65-115); Osmolality Calculated 289 mOsm/kg (285-295); Potassium 3.9 mmol/L (3.5-5.1); Sodium 137 mmol/L (136-145); Total Bilirubin 0.6 mg/dL (0.15-1.2); Total Protein 5.6 g/dL (6.6-8.7)
[2025-04-16 01:13] LABS: Partial Thromboplastin Time 154.1 SECONDS (23.9-36.7)
--- NOTE | 2025-04-16 07:46 | PC.NURSE ---
Patient's heparin drip is running at 35ml/hr at shift change. The MAR indicated that it was still on pause.
[2025-04-16] MEDS: hydroCHLOROthiazide 25 mg Tablet PO (08:14)
[2025-04-16] MEDS: atorvastatin 40 mg Tablet PO (08:14)
[2025-04-16] MEDS: acetaminophen 325 mg Tablet 650 MG PO (08:14)
[2025-04-16] MEDS: famotidine 20 mg/2 mL INJ IVP ×2 (08:15→21:12)
[2025-04-16] MEDS: clopidogrel 75 mg Tablet PO (08:15)
[2025-04-16] MEDS: pramipexole 0.25 mg Tablet 0.5 MG PO ×2 (08:15→17:19)
[2025-04-16] MEDS: aspirin 81 mg EC Tablet PO (08:15)
[2025-04-16 09:14] LABS: Procalcitonin 0.03 ng/mL (0-0.5)
[2025-04-16 09:15] LABS: Partial Thromboplastin Time 62.3 SECONDS (23.9-36.7)
--- NOTE | 2025-04-16 09:35 | PM.CONSULT ---
Providers/Reason For Consult Consulting Physician/Specialty*: Dr. Green Reason for Consult*: Chest pain Requesting Physician: Dr. Regan Attending Physician: Bruce Robbins MD Primary Care Provider: Renetta Nugent MD History of Present Illness History of Present Illness Selena Salgado is a 74 year old female with a history of CAD, CHF, hyperlipidemia, hypertension, previous stent to the RCA in September 16, came to the ER last night due to chest pain. She states she was at home sitting in her chair and she developed severe 8 out of 10 chest pain behind her left shoulder that radiated up into her neck and chest. She states she took 2 nitro without relief. She took the third nitro and finally this resolved the chest pain. At that point she decided to come into the emergency room. In August 2024 she was found to have 50% distal LAD 40% mid left LAD and 40% proximal LAD, distal circumflex was moderately stenosed at 50%, RCA 80% stenosed requiring a stent. At this time, she is not having any chest pain. Labs are stable. proBNP is elevated at 509. On exam she appears euvolemic. Trops were 14?14 0.8?13.61. EKG showed sinus bradycardia with no significant ST elevations or T wave abnormalities. Medications/Allergies Home Medications ?Medication ?Instructions ?Recorded ?Confirmed ?Last Taken ?Type acetaminophen 500 mg tablet 500 mg PO Q6H PRN fever or pain 07/26/22 04/08/25 12/20/24 History (Tylenol Extra Strength) multivitamin 1 tab PO DAILY 10/06/22 04/08/25 12/20/24 History omeprazole 20 mg capsule,delayed 20 mg PO DAILY PRN reflux 90 days 01/11/24 04/08/25 12/20/24 Rx release #90 caps potassium chloride 20 mEq 20 meq PO DAILY PRN with lasix 90 01/11/24 04/08/25 12/20/24 Rx tablet,extended release days #90 tabs pramipexole 0.5 mg tablet 0.5 mg PO BID 90 days #180 tabs 01/11/24 04/08/25 12/20/24 Rx cyclobenzaprine 5 mg tablet 5 mg PO TID PRN muscle spasm 04/20/24 04/08/25 12/20/24 Rx days #90 tabs diclofenac sodium 1 % topical gel 4 g topical QID #100 grams 06/21/24 04/08/25 12/20/24 Rx (Voltaren Arthritis Pain) aspirin 81 mg capsule 81 mg PO DAILY #90 caps 07/08/24 04/08/25 12/20/24 Rx escitalopram oxalate 20 mg tablet 20 mg PO 199907/08/24 04/08/25 12/20/24 History trazodone 100 mg tablet 100 mg PO 199907/08/24 04/08/25 12/20/24 History polyethylene glycol 3350 17 4 g PO DAILY #850 grams 07/26/24 04/08/25 12/20/24 Rx gram/dose oral powder (Miralax) albuterol sulfate 90 mcg/actuation 1 inh inhalation QID PRN shortness 07/30/24 04/08/25 12/20/24 Rx aerosol inhaler of breath or wheezing #6.7 grams fluticasone propionate 50 2 spray intranasal DAILY #16 grams 07/30/24 04/08/25 12/20/24 Rx mcg/actuation nasal spray,suspension (Flonase Allergy Relief) nystatin 100,000 unit/gram topical 1 applic topical BID PRN rash 7 07/30/24 04/08/25 12/20/24 Rx ointment days #30 grams nitroglycerin 0.4 mg sublingual 0.4 mg sublingual Q5M PRN chest 08/24/24 04/08/25 Unknown Rx tablet pain #30 tabs famotidine 20 mg tablet 20 mg PO BID 09/03/24 04/08/25 12/20/24 History hydrocortisone 1 % topical cream 1 applic topical TID PRN Itching 09/03/24 04/08/25 12/20/24 History vitamin B complex 1 cap PO DAILY 09/03/24 04/08/25 12/20/24 History vitamin E (dl, acetate) 180 mg 180 mg PO DAILY 09/03/24 04/08/25 12/20/24 History (400 unit) capsule clopidogrel 75 mg tablet (Plavix) 75 mg PO DAILY #30 tabs 09/07/24 04/08/25 12/20/24 Rx levocetirizine 5 mg tablet 5 mg PO DAILY 09/07/24 04/08/25 12/20/24 History levothyroxine 150 mcg tablet 150 mcg PO QAM 09/07/24 04/08/25 12/25/24 History irbesartan 150 mg tablet 150 mg PO DAILY #90 tabs 09/18/24 04/08/25 12/20/24 Rx atorvastatin 40 mg tablet 40 mg PO DAILY 11/23/24 04/08/25 12/20/24 History furosemide 20 mg tablet 40 mg PO DAILY edema 12/18/24 04/08/25 12/20/24 History atenolol 25 mg tablet 25 mg PO DAILY 12/20/24 04/08/25 12/25/24 History benzocaine 20 %-menthol 0.26 % See Rx Instructions .Route .COMPLEX 12/20/24 04/08/25 12/20/24 History mouth mucosal gel (Orajel 2X Toothache-Gum) promethazine-DM 6.25 mg-15 mg/5 mL 10 ml PO Q6H PRN Cough 12/20/24 04/08/25 12/20/24 History oral syrup sodium chloride 0.65 % nasal spray 1 spray intranasal DAILY 12/20/24 04/08/25 12/20/24 History aerosol (Deep Sea Nasal) lidocaine HCl 2 % mucosal solution 1 applic mucous membrane QID PRN 01/25/25 04/08/25 Unknown Rx (Lidocaine Viscous) pain #100 mL Sole Supports #1 ea 02/11/25 04/08/25 Unknown Rx hydrochlorothiazide 25 mg tablet 25 mg PO DAILY #90 tabs 02/12/25 04/08/25 Unknown Rx tramadol 50 mg tablet 50 mg PO Q12H PRN pain #60 tabs 02/18/25 04/08/25 Unknown Rx hydrocodone 5 mg-acetaminophen 325 1 tab PO BID PRN worse shoulder 03/19/25 04/08/25 Unknown Rx mg tablet pain 30 days #30 tabs diazepam 2 mg tablet (Valium) 2 mg PO ONCE PRN anxiety #2 tabs 03/29/25 04/08/25 Unknown Rx Allergies Allergy/AdvReac Type Severity Reaction Status Date / Time adhesive tape Allergy Intermediate ALGY-Rash Verified 03/29/25 08:02 meperidine (From Demerol) Allergy Mild ALGY-RASH Verified 03/29/25 08:02 morphine Allergy Mild ALGY-RASH Verified 03/29/25 08:02 pantoprazole (From Protonix) Allergy Mild ALGY-RASH Verified 03/29/25 08:02 imipramine AdvReac Mild ADR-FLU Verified 03/29/25 08:02 LIKE SYMPTOMS promethazine (From Phenergan) AdvReac Mild ADR-RESTLESS Verified 03/29/25 08:02 LEGS celecoxib (From Celebrex) AdvReac ADR-INCREASED Verified 03/29/25 08:02 APPETITE lisinopril AdvReac ADR-COUGH Verified 03/29/25 08:02 Current Medications Generic Name Dose Route Start Last Admin Trade Name Freq PRN Reason Stop Dose Admin Acetaminophen 650 mg 04/15/25 18:18 04/16/25 08:14 Acetaminophen 325 Mg Tablet PO 650 mg Q6H PRN Administration Mild/Mod Pain Or Temp >/= 101 Aspirin 81 mg 04/16/25 09:00 04/16/25 08:15 Aspirin 81 Mg Ec Tablet PO 81 mg DAILY KALYANI Administration Atorvastatin Calcium 40 mg 04/16/25 09:00 04/16/25 08:14 Atorvastatin 40 Mg Tablet PO 40 mg DAILY KALYANI Administration Clopidogrel Bisulfate 75 mg 04/16/25 09:00 04/16/25 08:15 Clopidogrel 75 Mg Tablet PO 75 mg DAILY KALYANI Administration Escitalopram Oxalate 20 mg 04/15/25 20:00 04/15/25 21:24 Escitalopram 10 Mg Tablet PO 20 mg 2000 KALYANI Administration Famotidine 20 mg 04/15/25 21:00 04/16/25 08:15 Famotidine 20 Mg/2 Ml Inj IVP 20 mg Q12H KALYANI Administration Hydrochlorothiazide 25 mg 04/16/25 09:00 04/16/25 08:14 Hydrochlorothiazide 25 Mg Tablet PO 25 mg DAILY KALYANI Administration Heparin Sodium/Sodium Chloride 25,000 unit in 500 mls @ 0 mls/hr 04/15/25 18:18 04/16/25 09:29 Heparin Drip IV 14.29 unit/kg/hr CONT KALYANI 35 mls/hr Protocol Titration Per Protocol Levothyroxine Sodium 150 mcg 04/16/25 06:00 04/16/25 05:33 Levothyroxine 150 Mcg Tablet PO Not Given QAM KALYANI Pramipexole Dihydrochloride 0.5 mg 04/15/25 20:00 04/16/25 08:15 Pramipexole 0.25 Mg Tablet PO 0.5 mg BID KALYANI Administration Trazodone HCl 100 mg 04/15/25 20:00 04/15/25 23:44 Trazodone 100 Mg Tablet PO 100 mg 1999 KALYANI Administration PFSH Acute PFSH: Medical History Bariatric surgery status Arthritis Pain in both feet Tongue lesion Family hx of colon cancer father Coronary artery disease 2 stents 09/16 Insomnia Pain management contract signed 11.23.24 tramadol; 02.12.25 hydrocodone Encounter for chronic pain management tramadol legacy patient; now hydrocodone prn worst pain can't take NSAIDs; failed gabapentin and pregabalin DANITZA on CPAP Bilateral lower extremity edema Morbid obesity with BMI of 45.0-49.9, adult Depression Heart palpitations CHF (congestive heart failure) Degenerative disk disease Cervical radiculopathy at C6 Hyperlipidemia Restless leg syndrome GERD (gastroesophageal reflux disease) Hypothyroidism Benign hypertension Surgical History Hx of cardiac catheterization 11..24 2 stents OZH H/O gastric sleeve 2010 S/P knee replacement left S/P tonsillectomy and adenoidectomy S/P cholecystectomy S/P cataract surgery bilateral History of left mastoidectomy Hx of section X 2 S/P appendectomy H/O tubal ligation H/O tympanostomy H/O: hysterectomy w/ BSO done for fibroids H/O rhinoplasty History of carpal tunnel surgery bilateral H/O decompression of ulnar nerve bilateral Family History Brother Prostate cancer Father Colon cancer Mother Brain cancer Other Cancer Diabetes Social History Smoking and tobacco/nicotine status: never used tobacco/nicotine Second hand smoke exposure: No Alcohol intake: never Substance/Drug Use: never Adopted: No Housing: Assisted Living Facility Marital status: Marital status details: they live at [facility] Number of children: 3 Highest education level completed: High School Graduate service: No Current occupational status: retired Current occupational exposures/hazards: Yes 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 Reproductive History: Spontaneous abortions: No Vitals/I&O/Wt Last Vital Signs Temp 98.2 F 04/16/25 07:12 Pulse 60 04/16/25 07:12 Resp 17 04/16/25 07:12 BP 150/78 04/16/25 07:12 Pulse Ox 96 04/16/25 07:12 O2 Del Method Room Air 04/16/25 07:12 O2 Flow Rate 1 04/15/25 15:30 04/15/25 04/16/25 04/16/25 22:59 06:59 14:59 Intake Total 720 / 720 232.167 / 952.167 60.667 / 60.667 Output Total 400 / 400 Balance 720 / 720 232.167 / 952.167 -339.333 / -339.333 Weight last 48 hrs Weight 270 lb Weight 270 lb Physical Exam Narrative: General: No apparent distress, healthy appearing, well nourished HENMT: normoceophalic Neck: No carotid bruit bilaterally Muskuloskeletal: Full ROM Respiratory: Normal respiratory effort, clear to auscultation bilaterally throughout all lung [place], no use of accessory muscles Cardio: No JVD, regular rate, regular rhythm, S1 S2 normal, no murmurs, peripheral pulses 2+ radial palpated bilaterally GI: Normal to inspection, nondistended Extremities: Full ROM, normal, normal capillary refill, no cyanosis, trace bilateral lower extremity edema Neuro: Alert and oriented x4, no focal motor deficits Psych: Affect normal, mental status grossly normal Skin: varicose veins bilateral lower extremities Data 04/16/25 00:37 04/16/25 00:37 A&P Assessment and plan (1) Unstable angina: (2) Hypertension: (3) Chest pain: (4) Coronary artery disease: Plan Patient has evidence of unstable angina relieved by nitro. Patient is high risk for recurrent or worsening CAD with underlying hx of this. At this time, we recommend proceeding with a coronary angiogram with possible PCI. We will take her around 10 today. The risk and benefits were discussed in detail with the patient. The risk of bleeding, hematoma, vascular injury, myocardial infarction, myocardial perforation, malignant cardiac arrhythmias ,CVA, renal failure and other concomitant complications were explained in detail. She fully agrees to proceed. PDMP PDMP Reviewed: Not Reviewed Consult Attestations Medical Necessity Statement: Deferred to primary Coding Level of Care Code Acute Code for Chg Fwd Diagnoses Unstable angina I20.0 Primary hypertension I10 Hypertension type: primary hypertension Chest pain R07.9 Chest pain type: unspecified Coronary artery disease of [place] artery of [place]reafski heart with stable angina pectoris I25.118 Coronary Disease-Associated Artery/Lesion type: [place] artery [place] vs. transplanted heart: andreafski heart Associated angina: with stable angina
--- NOTE | 2025-04-16 10:10 | PC.CHAP ---
Pastoral Care Encounter/Spiritual Assessment Type of Contact [] Declined heating engineer visit [] Patient/Family/Request visit [] Outpatient visit [] Follow-up visit [] Physician referral [] Code/Alert [x] Routine visit [] Staff referral [] Actively dying [] Patient sleeping [] Family support [] [] Out of room [] Palliative care [] [] Receiving care in room [] Pre-surgical visit [] Trauma [] Long length of stay [] ICU visit [] Other: Relational/Emotional Strength [x] Patient feels connected with others/family/visitors/staff [] Distress [] Loneliness/isolation [] Abandonment Spirituality of Patient [x] Person of Flaca [] Attends Synagogue of their [place] [x] Believes in Prayer [] Reads Bible or Roman Catholic materials [] There are Spiritual issues to be addressed Statement Request Clerk Interventions [x] Prayer [x] Active listening [] Non-anxious presence [x] Spiritual/emotional support [] Crisis/trauma care [] Spiritual counseling [] Bereavement support [] Provided bereavement packet [] Provided Bible/devotional materials [] Provided toy/stuffed animal, coloring book to patient or family member [] Provided Communion [] Anointing/[place] [] Salvation [x] Completed spiritual assessment [] Other: Impact on Illness or Injury [] Angry [] Fearful [] Anxious [] Often cries [] Exhaustion [] Unable to work [] Unable to attend sabianist [] Unable to walk/stand [] Unable to read [] Unable to drive [] Unable to eat/drink [] Unable to sleep [] Unable to be with family [] Patient intubated [] Other: Summary Time spent with patient 5 min
--- NOTE | 2025-04-16 10:29 | PC.NURSE ---
Patient left CSU for clinical laboratory assistant at 1020.
--- NOTE | 2025-04-16 10:29 | W.PM.OPSUD ---
Surgery/Procedure H&P Update DATE OF PROCEDURE: April 16, 2025 DATE H&P PERFORMED: 04/16/25 H&P UPDATE INFORMATION: I have reviewed H&P completed within last 30 days, I have examined patient prior to procedure and No changes to prior documentation PREOP DIAGNOSIS: Unstable angina/ worsening angina PRIMARY INDICATION FOR PROCEDURE: Unstable angina/ worsening angina PLANNED PROCEDURE: Left heart cath with possible percutaneous coronary intervention PATIENT REASSESSED PRIOR TO SEDATION, WITH NO CHANGE NOTED: Yes PHYSICAL EXAM: alert, oriented x 3, clear to auscultation bilaterally and regular rate & rhythm AIRWAY EVAL/ANESTHESIA PLAN: normal airway, ASA III, Local Anesthesia, Risks, benefits & alternatives of sedation and/or procedure discussed and Patient agrees to continue as planned ADDITIONAL INFORMATION: Moderate sedation
--- NOTE | 2025-04-16 11:38 | PM.PROC ---
Procedure Note: Date of procedure: 04/16/25 Pre-procedure diagnosis: Unstable angina Post-procedure diagnosis: other (Severe mid LAD stenosis confirmed with iFR value of 0.87 s/p PCI with 2 stents. Severe LCx stenosis s/p PCI with 1 stent.) Procedure: Severe mid LAD stenosis. iFR was abnormal. S/p PCI with 2 stents. Distal left circumflex artery has severe stenosis s/p PCI with 1 stent Dual antiplatelet therapy with aspirin and plavix Performing Provider: Georges Green Estimated blood loss (mL): 10 Complications: None Condition: stable Disposition: floor Coding Level of Care Code Acute Code for [facility]
--- NOTE | 2025-04-16 11:59 | PC.NURSE ---
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 Per Dr Peter MONTEIRO at 100ml/hr x 12 hours.
--- NOTE | 2025-04-16 13:38 | P.PN_ITS ---
Subjective 2 Subjective: Patient was seen this morning, denies any chest pain, no palpitations, no nausea, no vomiting Vitals/I&O/Wt Last Vital Signs Temp 98.2 F 04/16/25 07:12 Pulse 57 L 04/16/25 09:10 Resp 16 04/16/25 09:10 BP 150/78 04/16/25 07:12 Pulse Ox 98 04/16/25 09:10 O2 Del Method Room Air 04/16/25 09:10 O2 Flow Rate 1 04/15/25 15:30 04/15/25 04/16/25 04/16/25 22:59 06:59 14:59 Intake Total 720 / 720 232.167 / 952.167 60.667 / 60.667 Output Total 400 / 400 Balance 720 / 720 232.167 / 952.167 -339.333 / -339.333 Weight last 48 hrs Weight 122.47 kg Weight 122.47 kg Physical Exam 2 Const: COMMON NORMALS: no acute distress and patient oriented x3 Resp: COMMON NORMALS: normal respiratory effort, No retractions, No use of accessory muscles and clear to auscultation bilaterally AUSCULTATION: clear to auscultation bilaterally Cardio: COMMON NORMALS: regular rate, regular rhythm, S1 normal heart sound present and S2 normal heart sound present RATE: regular rate RHYTHM: r egular rhythm HEART SOUNDS: S1 normal heart sound present and S2 normal heart sound present GI: COMMON NORMALS: Normal to inspection, nondistended, normoactive bowel sounds present and non-tender Extremity: COMMON NORMALS: no pedal edema Neuro: COMMON NORMALS: patient oriented x3 Psych: COMMON NORMALS: mental status grossly normal Data 04/16/25 00:37 04/16/25 00:37 A&P Assessment and plan (1) Unstable angina: (2) Hyperlipidemia: (3) Hypothyroidism: (4) Morbid obesity with BMI of 45.0-49.9, adult: Plan Unstable angina Cath in August 2024 Plan - Serial EKGs, serial troponins, telemetry monitoring - Cardiac echo - N.p.o. plan on coronary angiography today - Aspirin, statin, Plavix - Hold beta-ray given complaints of dizziness and bradycardia - Heparin drip - Full code - Lovenox for DVT prophylaxis PDMP PDMP Reviewed: Not Reviewed Attestations 2 Medical Necessity Statement*: Patient requires hospitalization for unstable angina proceeding with coronary angiography Diagnoses Unstable angina I20.0 Mixed hyperlipidemia E78.2 Hyperlipidemia type: mixed hyperlipidemia Acquired hypothyroidism E03.9 Hypothyroidism type: acquired Morbid obesity with BMI of 45.0-49.9, adult E66.01; Z68.42
[2025-04-16] MEDS: ondansetron 2 mg/ML SDV 2 mL 4 MG IVP (15:54)
--- NOTE | 2025-04-16 17:26 | PC.NURSE ---
Patients right radial TR-band is removed after slowly, 2ml's at a time, removing the air. No hematoma is noted. A dressing of 2 x 2 and tegaderm is applied. Patient tolerated well. Patient is reeducated to not use her right hand/wrist for the next 24 hours, after tomorrow she will need to limit it to no more than 10 pounds, including pushing and pulling for a total of 5 days. Patient states understanding.
[2025-04-16] MEDS: trazodone 100 mg Tablet PO (21:12)
[2025-04-16] MEDS: escitalopram 10 mg Tablet 20 MG PO (21:12)
[2025-04-16] MEDS: enoxaparin 40 mg/0.4 mL Syringe SUBCUT (23:14)
[2025-04-17] VITALS: BP 123/58; PULSE 67; RESP 20; TEMP 36.6
[2025-04-17 03:06] VITALS: BP 132/67; PULSE 67; RESP 20; TEMP 37; O2SAT 96
[2025-04-17 03:53] LABS: Basophils % 0.2 %; Eosinophils # 0.1 10^3/uL (0.0-0.8); Eosinophils % 0.7 %; Hematocrit 36.3 % (36-47); Lymphocytes # 2.6 10^3/uL (0.8-4.8); Lymphocytes % 23.8 %; Mean Corpuscular HGB Conc 31.1 g/dL (30-55); Mean Corpuscular Hemoglobin 25.9 pg (27-33); Mean Corpuscular Volume 83.3 fl (85-98); Mean Platelet Volume 9.9 fL (7.4-10.4); Monocytes # 0.9 10^3/uL (0.2-0.9); Monocytes % 8.6 %; Neutrophils % 66.3 %; Nucleated Red Blood Cells % 0 %; Platelet Count 190 10^3/cmm (157-399); Red Blood Count 4.36 10^6/uL (3.85-5.65); Red Cell Distribution Width 17.5 % (12.1-15.1); White Blood Count 10.85 10^3/uL (3.29-11.43)
[2025-04-17 04:00] VITALS: BP 132/67; PULSE 67; RESP 20; TEMP 37
[2025-04-17 04:19] LABS: Alanine Aminotransferase 15 U/L (0-33); Albumin Level 3.3 g/dL (3.5-5.2); Alkaline Phosphatase 95 U/L (35-105); Anion Gap 12.7 (5-19); Aspartate Amino Transferase 15 U/L (0-32); Blood Urea Nitrogen 19 mg/dL (8-23); Calcium 9.2 mg/dL (8.5-10.5); Carbon Dioxide 31 mmol/L (22-29); Chloride 96 mmol/L (98-107); Creatinine Clr Calc Pharmacy 76.5114; Globulin 2.1 g/dL (1.3-4.6); Glucose 89 mg/dL (65-115); Osmolality Calculated 284 mOsm/kg (285-295); Potassium 3.7 mmol/L (3.5-5.1); Sodium 136 mmol/L (136-145); Total Bilirubin 0.8 mg/dL (0.15-1.2); Total Protein 5.4 g/dL (6.6-8.7)
[2025-04-17] MEDS: levothyroxine 150 mcg Tablet PO (05:21)
[2025-04-17 07:36] VITALS: BP 142/74; PULSE 72; RESP 22; TEMP 36.9; O2SAT 96
[2025-04-17 08:00] VITALS: PULSE 83; RESP 18; O2SAT 96
--- NOTE | 2025-04-17 09:17 | P.DS_ITS ---
Discharge Providers Date of Admission: 04/15/25 16:55 Date of Discharge: April 17, 2025 Attending Provider at Admission: Bruce Robbins MD Attending Provider at Discharge: Bruce Robbins MD Primary Care Provider: Renetta Nugent MD Diagnoses at Discharge Discharge Diagnosis (1) Unstable angina: Status: Acute (2) Hyperlipidemia: Status: Chronic Qualifiers: Hyperlipidemia type: mixed hyperlipidemia Qualified Code(s): E78.2 - Mixed hyperlipidemia (3) Hypothyroidism: Status: Chronic Qualifiers: Hypothyroidism type: acquired Qualified Code(s): E03.9 - Hypothyroidism, unspecified (4) Morbid obesity with BMI of 45.0-49.9, adult: Status: Chronic Reason for Visit Reason for Visit: chest pain Hospital Course Hospital Course Selena Salgado is a 74 year old female with a past medical history of CAD status post tenting x 2, hypertension, hyperlipidemia who presents [facility] for chest pain. Patient reports anterior chest pain, radiating down left arm, radiating to her neck, no associate shortness of breath, no diaphoresis, she does report a week history of lightheadedness, and dizziness at time, she is using her medications as prescribed, denies any shortness of breath with exertion, no edema Patient was admitted to [facility] for unstable angina, managed with aspirin, statin, Plavix, heparin drip, cardiology consulted underwent coronary angiography found to have severe mid LAD stenosis, status post PCI with 2 stents, distal left circumflex artery had severe stenosis status post PCI with 1 stent. No recurrent chest pain during hospitalization, discharged on aspirin, statin, Plavix, with close follow-up with cardiology as outpatient. Patient was advised if she were to have any recurrent chest pain to go to emergency room. Atenolol was placed on hold due to sinus bradycardia and her complaints of dizziness, follow-up with cardiology in the next week. Physical Exam Const: COMMON NORMALS: no acute distress and patient oriented x3 Resp: COMMON NORMALS: normal respiratory effort, No retractions, No use of accessory muscles and clear to auscultation bilaterally AUSCULTATION: clear to auscultation bilaterally Cardio: COMMON NORMALS: regular rate, regular rhythm, S1 normal heart sound present and S2 normal heart sound present RATE: regular rate RHYTHM: regular rhythm HEART SOUNDS: S1 normal heart sound present and S2 normal heart sound present GI: COMMON NORMALS: Normal to inspection, nondistended, normoactive bowel sounds present and non-tender Extremity: COMMON NORMALS: no pedal edema Neuro: COMMON NORMALS: patient oriented x3 Psych: COMMON NORMALS: mental status grossly normal Discharge Data Studies Completed and Pending Completed Studies During Hospitalization Category Date Time Status XR chest 1V portable [id number] Stat Exams 04/15/25 14:54 Completed CV. echo complete* [id number] Routine Ultrasound 04/15/25 18:18 Completed Pending at discharge Category Date Time Status SACK SEWER request for service Routine Exams 04/16/25 09:43 Taken Complete Blood Count w/Auto AM LABS Lab 04/18/25 04:00 Ordered Comprehensive Metabolic Panel AM LABS Lab 04/18/25 04:00 Ordered Platelet Count Q2D Lab 04/19/25 04:00 Ordered Urinalysis Routine Lab 04/16/25 08:07 Uncollected Radiology Impressions Chest X-Ray 04/15/25 14:54 IMPRESSION: 1. No acute cardiopulmonary finding. Laboratory Results WBC 10.85 10^3/uL (3.29-11.43) 04/17/25 03:04 RBC 4.36 10^6/uL (3.85-5.65) 04/17/25 03:04 Hgb 11.30 g/dL (11.27-16.99) 04/17/25 03:04 Hct 36.3 % (36-47) 04/17/25 03:04 MCV 83.3 fl (85-98) L 04/17/25 03:04 MCH 25.9 pg (27-33) L 04/17/25 03:04 MCHC 31.1 g/dL (30-55) 04/17/25 03:04 RDW 17.5 % (12.1-15.1) H 04/17/25 03:04 Plt Count 190 10^3/cmm (157-399) 04/17/25 03:04 MPV 9.9 fL (7.4-10.4) 04/17/25 03:04 Neut % (Auto) 66.3 % 04/17/25 03:04 Lymph % (Auto) 23.8 % 04/17/25 03:04 [place] % (Auto) 8.6 % 04/17/25 03:04 Eos % (Auto) 0.7 % 04/17/25 03:04 Baso % (Auto) 0.2 % 04/17/25 03:04 Neut # (Auto) 7.20 10^3/uL (1.8-7.7) 04/17/25 03:04 Lymph # (Auto) 2.6 10^3/uL (0.8-4.8) 04/17/25 03:04 [place] # (Auto) 0.9 10^3/uL (0.2-0.9) 04/17/25 03:04 Eos # (Auto) 0.1 10^3/uL (0.0-0.8) 04/17/25 03:04 Baso # (Auto) 0.0 10^3/uL (0.0-0.1) 04/17/25 03:04 Nucleated RBC % (auto) 0 % 04/17/25 03:04 Nucleated RBCs # 0.0 /100WBC 04/17/25 03:04 APTT 62.3 SECONDS (23.9-36.7) H D 04/16/25 08:47 Sodium 136 mmol/L (136-145) 04/17/25 03:04 Potassium 3.7 mmol/L (3.5-5.1) 04/17/25 03:04 Chloride 96 mmol/L (98-107) L 04/17/25 03:04 Carbon Dioxide 31 mmol/L (22-29) H 04/17/25 03:04 Anion Gap 12.7 (5-19) 04/17/25 03:04 BUN 19 mg/dL (8-23) 04/17/25 03:04 Creatinine 0.6 mg/dL (0.5-0.9) 04/17/25 03:04 GFR Calculation Not Reportable 04/17/25 03:04 Glucose 89 mg/dL (65-115) 04/17/25 03:04 Calculated Osmolality 284 mOsm/kg (285-295) L 04/17/25 03:04 Calcium 9.2 mg/dL (8.5-10.5) 04/17/25 03:04 Total Bilirubin 0.8 mg/dL (0.15-1.2) 04/17/25 03:04 AST 15 U/L (0-32) 04/17/25 03:04 ALT 15 U/L (0-33) 04/17/25 03:04 Alkaline Phosphatase 95 U/L (35-105) 04/17/25 03:04 Troponin T Baseline 14 ng/L (0-10) H 04/15/25 15:20 Troponin T 120 Minute 14.80 ng/L (0-10) H 04/15/25 17:07 Delta Troponin T 0.80 ABS# (0-10) 04/15/25 17:07 Troponin T Hi Sens 6Hr 13.61 ng/L (0-10) H 04/15/25 21:07 Troponin T Hi Sens 6Hr Delta -0.39 ng/L (0-12) L 04/15/25 21:07 C-Reactive Protein 3.0 mg/L (0.0-4.9) 04/16/25 00:37 NT-Pro-B Natriuret Pep 509 pg/mL (0-125) H 04/15/25 15:20 Total Protein 5.4 g/dL (6.6-8.7) L 04/17/25 03:04 Albumin 3.3 g/dL (3.5-5.2) L 04/17/25 03:04 Globulin 2.1 g/dL (1.3-4.6) 04/17/25 03:04 Procalcitonin 0.03 ng/mL (0-0.5) 04/16/25 00:37 Vitals Last Vital Signs Temp 98.5 F 04/17/25 07:36 Pulse 83 04/17/25 08:00 Resp 18 04/17/25 08:00 BP 142/74 04/17/25 07:36 Pulse Ox 96 04/17/25 08:00 O2 Del Method Room Air 04/17/25 08:00 O2 Flow Rate 1 04/15/25 15:30 Discharge Plan Discharge Patient Disposition: Home Condition: Stable Prescriptions: Continued multivitamin Tablet 1 tab PO DAILY irbesartan 150 mg tablet 150 mg PO DAILY Qty: 90 3RF (DME) Sole Supports See Rx Instructions .Route .MEDSUPPLY Qty: 1 0RF Rx Instructions: As directed hydrochlorothiazide 25 mg tablet 25 mg PO DAILY Qty: 90 1RF acetaminophen [Tylenol Extra Strength] 500 mg tablet 500 mg PO Q6H PRN (Reason: fever or pain) pramipexole 0.5 mg tablet 0.5 mg PO BID 90 Days Qty: 180 2RF omeprazole 20 mg capsule,delayed release(DR/EC) 20 mg PO DAILY PRN (Reason: reflux) 90 Days Qty: 90 2RF potassium chloride 20 mEq tablet extended release 20 meq PO DAILY PRN (Reason: with lasix) 90 Days Qty: 90 2RF cyclobenzaprine 5 mg tablet 5 mg PO TID PRN (Reason: muscle spasm) 90 Days Qty: 90 1RF diclofenac sodium [Voltaren Arthritis Pain] 1 % gel 4 g topical QID Qty: 100 2RF Rx Instructions: apply to single knee, ankle, foot; for foot includes sole/toes/top of foot polyethylene glycol 3350 [Miralax] 17 gram/dose powder 4 g PO DAILY Qty: 850 2RF fluticasone propionate [Flonase Allergy Relief] 50 mcg/actuation spray,suspension 2 spray intranasal DAILY Qty: 16 0RF Rx Instructions: administer into each nostril albuterol sulfate 90 mcg/actuation HFA aerosol inhaler 1 inh inhalation QID PRN (Reason: shortness of breath or wheezing) Qty: 6.7 0RF nystatin 100,000 unit/gram ointment 1 applic topical BID PRN (Reason: rash) 7 Days Qty: 30 0RF tramadol 50 mg tablet 50 mg PO Q12H PRN (Reason: pain) Qty: 60 0RF hydrocodone-acetaminophen 5-325 mg tablet 1 tab PO BID PRN (Reason: worse shoulder pain) 30 Days Qty: 30 0RF trazodone 100 mg tablet 100 mg PO 2000 escitalopram oxalate 20 mg tablet 20 mg PO DAILY hydrocortisone 1 % Cream 1 applic TOPICAL TID PRN (Reason: Itching) vitamin B complex Capsule 1 cap PO DAILY vitamin E (dl, acetate) 180 mg (400 unit) Capsule 180 mg PO DAILY levothyroxine 150 mcg tablet 150 mcg PO QAM levocetirizine 5 mg tablet 5 mg PO DAILY promethazine-DM 6.25-15 mg/5 mL Syrup 10 ml PO Q6H PRN (Reason: Cough) [place] Nasal 0.65 % Aerosol,[place] 2 spray INTRANASAL BEDTIME alum-mag hydroxide-simeth [Antacid Anti-Gas] 200-200-20 mg/5 mL Suspension 30 ml PO QID PRN (Reason: Acid Reflux) Rx Instructions: administer between meals and at bedtime furosemide 40 mg tablet 40 mg PO DAILY ondansetron 8 mg tablet,disintegrating 8 mg PO Q8H PRN (Reason: Nausea And Vomiting) turmeric-turmeric root extract 450-50 mg Capsule 2 cap PO DAILY atorvastatin 40 mg tablet 40 mg PO DAILY 30 Days Qty: 30 0RF clopidogrel [Plavix] 75 mg tablet 75 mg PO DAILY 30 Days Qty: 30 0RF nitroglycerin 0.4 mg tablet, sublingual 0.4 mg sublingual Q5M PRN (Reason: chest pain) 30 Days Qty: 30 0RF Rx Instructions: do not exceed 3 doses per episode aspirin 81 mg capsule 81 mg PO DAILY 30 Days Qty: 30 0RF Held atenolol 25 mg tablet 25 mg PO DAILY Hold Instructions: Resume on 04/25/25. hold until you see cardiology Discontinued lidocaine HCl [Lidocaine Viscous] 2 % solution 1 applic mucous membrane QID PRN (Reason: pain) Qty: 100 0RF diazepam [Valium] 2 mg tablet 2 mg PO ONCE PRN (Reason: anxiety) Qty: 2 0RF Rx Instructions: Take prior to procedures on 04/23/25 & 05/07/25. famotidine 20 mg Tablet 20 mg PO BID diclofenac sodium 1 % Gel 1 g TOPICAL BID PRN (Reason: FEET) Rx Instructions: apply to FEET DIRECTED TWO TIMES DAILY prednisone 20 mg tablet 20 mg PO BID Rx Instructions: FOR 5 DAYS END DATE 04/17/25 Discharge Orders: Discharge Order (Routine); Ordered 04/17/25 Ordered By: Bruce Robbins Referrals: Moriah Gregg NP [Nurse Practitioner, Cardiology] - 04/23/25 2:30 pm Renetta Nugent MD [Primary Care Provider, Family Practice] - 05/16/25 2:30 pm Referral Note: Clinic has placed you on their waitlist should an opening or an cancellation become available. Thank you. Discharge Diet: Cardiac Discharge Activity: Resume usual activity Patient Instructions: Angina (DC), Coronary Angioplasty (DC), Opioid Safety, Post Angiogram Home Care Instructions, Patient Portal & Arlet Instructions Activity Restrictions/Additional Instructions: -if any recurrent any chest pain go to the emergency room Discharge Attestations Time Spent in Discharge Care*: greater than 30 min Quality Metrics Clinical Quality Measures [ No reported AMI, CVA or VTE this stay] Coding Level of Care Code 27413 Total time (in minutes) for Discharge: 45 Diagnoses Unstable angina I20.0 Mixed hyperlipidemia E78.2 Hyperlipidemia type: mixed hyperlipidemia Acquired hypothyroidism E03.9 Hypothyroidism type: acquired Morbid obesity with BMI of 45.0-49.9, adult E66.01; Z68.42
--- NOTE | 2025-04-17 09:21 | PM.PN ---
Subjective Subjective: Patient is doing well. Denies chest pain. Radial site looks good. Yesterday she underwent stenting of the LAD x 2 and left circumflex x 1. Creatinine normal at 0.6. Labs and vitals are stable. O2 sat 96% on room air Vitals/I&O/Wt Last Vital Signs Temp 98.5 F 04/17/25 07:36 Pulse 83 04/17/25 08:00 Resp 18 04/17/25 08:00 BP 142/74 04/17/25 07:36 Pulse Ox 96 04/17/25 08:00 O2 Del Method Room Air 04/17/25 08:00 O2 Flow Rate 1 04/15/25 15:30 04/16/25 04/17/25 04/17/25 22:59 06:59 14:59 Intake Total 240 / 696.250 220 / 916.250 Balance 240 / 296.250 220 / 516.250 Weight last 48 hrs Weight 274 lb 14.4 oz Weight 270 lb Weight 270 lb Physical Exam Narrative: General: No apparent distress, healthy appearing, well nourished HENMT: normoceophalic Neck: No carotid bruit bilaterally Muskuloskeletal: Full ROM Respiratory: Normal respiratory effort, clear to auscultation bilaterally throughout all lung [place], no use of accessory muscles Cardio: No JVD, regular rate, regular rhythm, S1 S2 normal, no murmurs, peripheral pulses 2+ radial palpated bilaterally GI: Normal to inspection, nondistended Extremities: Full ROM, normal, normal capillary refill, no cyanosis, trace bilateral lower extremity edema Neuro: Alert and oriented x4, no focal motor deficits Psych: Affect normal, mental status grossly normal Skin: varicose veins bilateral lower extremities, right radial cath site clean dry intact, no signs of hematoma Data 04/17/25 03:04 04/17/25 03:04 A&P Assessment and plan (1) Unstable angina: (2) Hypertension: (3) Chest pain: (4) Coronary artery disease: Plan Patient is doing well status post stent to the mid LAD x 2 and left circumflex x 1. Did have some bradycardia in the ER. Can hold metoprolol for now and patient to bring blood pressure and heart rate log to us in the clinic in 1 week. From cardiology standpoint may be discharged on aspirin Plavix and statin therapy and home dose regimen. Activity instructions were given to the patient. PDMP PDMP Reviewed: Not Reviewed Attestations Medical Necessity Statement*: Deferred to primary Coding Level of Care Code Acute Code for Chg Fwd Diagnoses Unstable angina I20.0 Primary hypertension I10 Hypertension type: primary hypertension Chest pain R07.9 Chest pain type: unspecified Coronary artery disease of [place] artery of [place] heart with stable angina pectoris I25.118 Coronary Disease-Associated Artery/Lesion type: [place] artery [place] vs. transplanted heart: [place] heart Associated angina: with stable angina
[2025-04-17] MEDS: atorvastatin 40 mg Tablet PO (09:40)
[2025-04-17] MEDS: pramipexole 0.25 mg Tablet 0.5 MG PO (09:40)
[2025-04-17] MEDS: FUROsemide 10 mg/mL SDV 4mL 40 MG IVP (09:40)
[2025-04-17] MEDS: potassium chloride ER 20 mEq Tablet PO (09:40)
[2025-04-17] MEDS: aspirin 81 mg EC Tablet PO (09:40)
[2025-04-17] MEDS: clopidogrel 75 mg Tablet PO (09:40)
[2025-04-17] MEDS: famotidine 20 mg/2 mL INJ IVP (09:41)
[2025-04-17] MEDS: hydroCHLOROthiazide 25 mg Tablet PO (09:41)
== END 2025-04-17 12:46 | disposition home or self-care (01) | DRG 322 ==
LOC: ER 16:48 → CSU 16:56
PROVIDERS: Internal Medicine; Admitting Provider Family Medicine; Emergency Provider Family Medicine; PCP Family Medicine; Visit Provider Family Medicine
PROC: 027136Z Dilation of Coronary Artery, Two Arteries with Three Drug-eluting Intraluminal Devices, Percutaneous Approach (ICD-10-PCS; principal; 2025-04-16 10:00)
PROC: 027136Z Dilation of Coronary Artery, Two Arteries with Three Drug-eluting Intraluminal Devices, Percutaneous Approach (ICD-10-PCS; 2025-04-16 10:00)
DX: I25.110 Atherosclerotic heart disease of native coronary artery with unstable angina pectoris (principal); Z68.43 Body mass index [BMI] 50.0-59.9, adult; G47.33 Obstructive sleep apnea (adult) (pediatric); E66.01 Morbid (severe) obesity due to excess calories; F32.A Depression, unspecified; I50.9 Heart failure, unspecified; I11.0 Hypertensive heart disease with heart failure; M54.12 Radiculopathy, cervical region; E78.2 Mixed hyperlipidemia; G25.81 Restless legs syndrome; R00.1 Bradycardia, unspecified; Z96.652 Presence of left artificial knee joint; E03.9 Hypothyroidism, unspecified; K21.9 Gastro-esophageal reflux disease without esophagitis; Z79.899 Other long term (current) drug therapy; Z95.5 Presence of coronary angioplasty implant and graft; Z98.84 Bariatric surgery status; Z82.49 Family history of ischemic heart disease and other diseases of the circulatory system
CPT/HCPCS: 36415; 71045; 80053; 83880; 84145; 84484; 85025; 85347; 85730; 86140; 92978; 93005; 93306; 93454; 93571; 94660; 94664; 96372; 96376; 99152; 99153; 99285; C1725; C1753; C1769; C1874; C1887; C1894; C9600; C9601; J1200; J1644; J1650; J1938; J2250; J2405; J3010; J3490; J7030; J9999; Q9967

== ENCOUNTER 2025-04-21 09:59 | Emergency (ER) | payer MEDICARE, MEDICAID, SELFPAY ==
--- OUTSIDE RECORDS SUMMARY | 2016-03-05 09:00 | XMS_ITS | Continuity of Care Document ---
Author Organization [facility] Address [address] [place] [id number] Phone Care Team Providers Care Director Of Psychiatry Name Role Phone Cyn Narayan MD Unavailable Unavailable Allergies, Adverse Reactions, Alerts Substance Reaction Status Criticality TAPE, PERMEABLE ADHESIVE Active No Information TAPE, OCCLUSIVE ADHESIVE Active No Information egg Active No Information PANTOPRAZOLE SODIUM Active No Infor mation celecoxib Active No Information lisinopril Active No Information morphine Active No Information imipramine Active No Information PROMETHAZINE HCL Active No Informat ion Medications Medication Instructions Dosage Effective Dates (start - stop) Status Comments AVALIDE (unknown strength) Not Available - Active ATENOLOL (unknown strength) Not Available - Active FLONASE (unknown strength) Not Available - Active LEVOTHYROXINE SODIUM (unknown strength) Not Available - Active LIPITOR (unknown strength) Not Available - Active MELOXICAM (unknown strength) Not Available - Active MIRAPEX (unknown strength) Not Available - Active TYLENOL (unknown strength) Not Available - Active ZYRTEC (unknown strength) Not Available - Active Procedures Procedure Date NEW PT EM 4 Meds document w/o verifica TOBACCO NON-USER GONIOSCOPY Advance Directives Directive Yes / No Effective Date File Name No Information Encounters Encounter Description Practice Location Reason(s) For Visit Diagnoses Date Provider NEW PT EM 4 [facility], [address] [place] [address], [id number], tel:[phone] [facility] Bloodshot eye (chief complaint) Subconjunctival hemorrhage 2015 Sylvain Addison. [address] [place] [address] [place], [id number], . tel:[phone] [facility], [address] [place] [address], [id number], tel:[phone] [facility] No Information 2015 Sylvain Addison. [address], [id number], . tel:[phone] Family History Family Member Type Diagnosis Age At Onset Problem (finding) Family history of glauc chris Problem (finding) Family history of Diabe steve mellitus Payers Payer name Insurance type Covered libertarian ID Authorelder stewart(s) [place] [id number] [place] [id number] Social History Type Description Quantity Date Captured Comments Alcohol Use Details Unknown Caffeine Use Details Unknown Tobacco Use Status No Information Smoking Status No Information Sex Female Chief Complaint And Reason For Visit From encounter dated '03/05/2016 14:00'. Bloodshot eye (chief complaint). Description: Patient was last seen in our office in 2009. 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 However since January of 2016, she has had 3 to 4 episodes affecting only the nasal portion of her right eye. She denies any pain or change of vision. She denies any history of trauma. She does not takeany blood thinners. She denies any vitamin E or ginko biloba. She had seen her primary care provider who stated that she had low vitamin D and some thyroid dysfunction. She does have a history of gastric sleeve in 2011. She denies any family history of bleeding or clotting disorders. History Of Present Illness Encounter Date Complaint History Of Prese nt Illness Bloodshot eye Patient was last seen in our office in 2009. 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 However since January of 2016, she has had 3 to 4 episodes affecting only the nasal portion of her right eye. She denies any pain or change of vision. She denies any history of trauma. She does not take any blood thinners. She denies any vitamin E or ginko biloba. She had seen her primary care provider who stated that she had low vitamin D and some thyroid dysfunction. She does have a history of gastric sleeve in 2011. She denies any family history of bleeding or clotting disorders. Instructions Date Instruction Additional Infor javier Impression/Plan - Go nioscopy OD showed normal angle with no evidence of mass or hemorrhage.Ole measurements were 18 OU at base 97.I will give her primary care doctor a call and see which tests she ran. We will have her run some studies for a bleeding diathesis if not already done. Related to Subconjunctival hemorrhage Assessments Type Assessment Date assessment Subconjunctival hemorrhage impression Subconjunctival hemorrhage: H11. 30.
--- OUTSIDE RECORDS SUMMARY | 2020-12-25 07:18 | XMS_ITS | Continuity of Care Document ---
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 Name Role Phone Dani Wei MD, Mendel Unavailable Unavailabl e Allergies, Adverse Reactions, Alerts Substance Reaction Status Criticality PROMETHAZINE HCL Active No Informat ion PANTOPRAZOLE SODIUM Active No Infor mation MEPERIDINE HCL Active No Informatio n Medications Medication Instructions Dosage Effective Dates (start - stop) Status Comments tramadol 50 mg tablet take 1 tablet by oral route every 6 hours as needed 50 MG - Active multivitamin tablet take 1 by Oral route 1 - Active Tylenol 325 mg tablet take 1 tablet by oral route every 4 hours as needed 325 MG - Active cetirizine 10 mg tablet take 1 tablet by oral route every day 10 MG - Active hydrochlorothiazide 25 mg tablet take 1 tablet by oral route every day 25 MG - Active simvastatin 20 mg tablet take 1 tablet b y oral route every day in the evening 20 MG - Active escitalopram 20 mg tablet take 1 tablet by oral route every day 20 MG - Active atenolol 50 mg tablet take 1 tablet by oral route every day 50 MG - Active levothyroxine 125 mcg tablet take 1 tablet by oral route every day 125 MCG - Active omeprazole 20 mg tablet,delayed release take 1 by oral route every day 1 - Active pramipexole 0.125 mg tablet take 1 tablet by oral route every day 0.125 MG - Active irbesartan 300 mg tablet take 1 tablet b y oral route every day 300 MG - Active Problems Condition Type Effective Dates (start - stop) Clini yari Status Comments No Known Problems Procedures Procedure Date OFFICE/OUTPATIENT VISIT, EST DRUG TEST PRSMV CHEM ANLYZR OFFICE/OUTPATIENT VISIT, EST OFFICE/OUTPATIENT VISIT, EST OFFICE/OUTPATIENT VISIT, EST LEAH interlaminar crv/thrc OFFICE/OUTPATIENT VISIT, EST LEAH interlaminar crv/thrc OFFICE/OUTPATIENT VISIT, NEW Advance Directives Directive Yes / No Effective Date File Name No Information Encounters Encounter Description Practice Location Reason(s) For Visit Diagnoses Date Provider Providers Copied on Encounter [facility], [address], [place], [place], [id number], [facility] No Information 1 Dani Oglesby. [address], [address], [place], [id number], . tel:[phone] OFFICE/OUTPAT IENT VISIT, [facility], [address], [place], [place], [id number], [facility] cervicalgia (chief complaint) Radiculopathy , cervical regionOther spondylosis, cervical regionPain in right shoulderPain in left knee 1 Dani Oglesby. [address], [address], [place], [id number], . tel:[phone] Referring Provider: Frank Garcia, [address] [place], [address] . OFFICE/OUTPAT IENT VISIT, [facility], [address], [place], [place], [id number], [facility] cervicalgia (chief complaint) Other spondylosis, cervical regionRadicul opathy, cervical regionSpinal stenosis, cervical regionPain in left kneePain in right shoulder 1 Dani Oglesby. [address], [address], [place], [id number], . tel:[phone] OFFICE/OUTPAT IENT VISIT, [facility], [address], [place], [place], [id number], [facility] cervicalgia (chief complaint) Other spondylosis, cervical regionRadicul opathy, cervical regionOther cervical disc degeneration of cervical region Dec- 0 Pam Dinomarc Silvia. [address], [address], [place], [id number], [place]. tel:[phone] Referring Provider: Frank Garcia, [address] [facility] [place], [address] . OFFICE/OUTPAT IENT VISIT, [facility], [address], [place], [place], [id number], [facility] cervicalgia (chief complaint) Radiculopathy , cervical regionSpinal stenosis, cervical regionOther spondylosis, cervical regionOther cervical disc degeneration of cervical region Sep-2 0 Dani Oglesby. [address], [address], [place], [id number], [place]. tel:[phone] Referring Provider: Frank Garcia, [address] , [place], [address] . [facility], [address], [place], [place], [id number], [facility] Radiculopathy , cervical region Sep-1 0 Dani Oglesby. [address], [address], [place], [id number], [place]. tel:[phone] OFFICE/OUTPAT IENT VISIT, [facility], [address], [place], [place], [id number], [facility] cervicalgia (chief complaint) Radiculopathy , cervical regionSpinal stenosis, cervical regionOther spondylosis, cervical regionOther cervical disc degeneration of cervical region Sep-0 0 Dani Oglesby. [address], [address], [place], [id number], [place]. tel:[phone] Referring Provider: Frank Garcia, [address] , [place], [address] . [facility], [address], [place], [place], [id number], [place] [facility] Radiculopathy , cervical region 0 Dani Oglesby. [address], [address], [place], [place], [id number], [place]. tel:[phone] OFFICE/OUTPAT IENT VISIT, [facility], [address], [place], [place], [id number], [place] [facility] cervicalgia (chief complaint) Radiculopathy , cervical regionOther spondylosis, cervical regionOther cervical disc degeneration of cervical regionSpinal stenosis, cervical region 0 Dani Oglesby. [address], [address], [place], [place], [id number], [place]. tel:[phone] Referring Provider: Frank Garcia, [facility] [place], [address] . Family History Family Member Type Diagnosis Age At Onset Mother Problem Cancer, brain Father Problem cancer of colon Mother Problem (finding) Father Problem (finding) Brother Problem blood clot Payers Payer name Insurance type Covered alliance party ID Authoriza tion(s) Medicare AJ [employer] SAMUEL [id number] [facility] [id number] Social History Type Description Quantity Date Captured Comments Sex Female Smoking Status No Information Chief Complaint And Reason For Visit No Information Reason For Referral Reason For Referral No Information History Of Present Illness Encounter Date Complaint History Of Prese nt Illness cervicalgia Aggravating fact ors include sitting, looking down, reading, working at her computer, reaching. Relieving factors include Heat, meds. She states the symptoms are chronic. Pain level neck-2 Pain Level R shoulder after fall-8 Pt also c/o LOPEZ's. cervicalgia (comments) Last seen 10/03/2021Taking Tramadol- 0 to 2 per dayRight shoulder pain after fall- MRI done- seeing Ortho tomorrow regarding right shoulder and left knee painFilled Tramadol 11/03/2020 #120Continues to have bilateral cervicalgia and headaches. [place] PDMP report shows Lyrica was filled 07/15/2020CESI #2 done 07/04/2020- no more improvement, trouble sleeping after both injections, some fatigue for one weekCESI #1 done 06/20/2020- neck pain has resolved, continues to have paresthesias in left UE Gabapentin caused oral ulcersSide effects with Lyrica so D/CedInjections- LEAH in 2014- lasted for 5 yearsTried Chiropractic treatments and PT currently- makes worseDenies ASA or A/CsMRI T-spine shows diffuse disc dessication, posterior bulgingMild narrowing at T9-10Diffuse FJALumbar MRI done 09/13/2019 showed mild FJA L3-S1L4-5 2mm anterolisthesisDDD at L3-4 and L4-5 with posterior bulgingCervical MRI done 09/13/19 showed ML DDD and bulging at C4-5, C5-6, C6-7, T1-2, and T2-3NFN at these levelsDiffuse FJACT scan cervical spine and lumbar spine done 10/29/2019 showed similar findings to the 09/13/2019 MRI cervicalgia (comments) Last seen 10/09/2020Side effects with Lyrica so D/CedLeft knee pain worsening since July- diagnosed with meniscal tear- referred OrthoRight shoulder pain after fallFilled Tramadol 10/29/2020 #15- Continues to have bilateral cervicalgia and headaches. [place] PDMP report shows Lyrica was filled 07/15/2020CESI #2 done 07/04/2020- no more improvement, trouble sleeping after both injections, some fatigue for one weekCESI #1 done 06/20/2020- neck pain has resolved, continues to have paresthesias in left UE Gabapentin caused oral ulcersInjections- LEAH in 2014- lasted for 5 yearsTried Chiropractic treatments and PT currently- makes worseDenies ASA or A/CsMRI T-spine shows diffuse disc dessication, posterior bulgingMild narrowing at T9-10Diffuse FJALumbar MRI done 09/13/2019 showed mild FJA L3-S1L4-5 2mm anterolisthesisDDD at L3-4 and L4-5 with posterior bulgingCervical MRI done 09/13/19 showed ML DDD and bulging at C4-5, C5-6, C6-7, T1-2, and T2-3NFN at these levelsDiffuse FJACT scan cervical spine and lumbar spine done 10/29/2019 showed similar findings to the 09/13/2019 MRI cervicalgia The symptoms are reported as being moderate. Aggravating factors include sitting, reading, and working at her computer. Relieving factors include heat, sometimes OTC Tylenol. She states the symptoms are chronic. Pain Level Neck-8Pain level for her L Knee and R Shoulder-10Pt states she has pain in the L knee due to a torn meniscus. Pt also states she fell about 2 weeks ago now and is experiencing pain in her R shoulder. Pt states she was put on Tramadol 50mg 1 po q 6 hrs for that. cervicalgia (comments) Last seen 07/15/2020- started on LyricaShe called into office on 07/22/2020 with side effects - lowered Lyrica to 50mg tid - she cont w/ side effects so d/c She does think LEAH's helped UE pain. Con with bilateral cervicalgia and headaches. [place] PDMP report shows Lyrica was filled 07/15/2020CESI #2 done 07/04/2020- no more improvement, trouble sleeping after both injections, some fatigue for one weekCESI #1 done 06/20/2020- neck pain has resolved, continues to have paresthesias in left UECC left UE paresthesias to thumbTried Gabapentin caused oral ulcersThis episode started in in MarchInjections- LEAH in 2014- lasted for 5 yearsTried Chiropractic treatments and PT currently- makes worseDenies ASA or A/CsMRI T-spine shows diffuse disc dessication, posterior bulgingMild narrowing at T9-10Diffuse FJALumbar MRI done 09/13/2019 showed mild FJA L3-S1L4-5 2mm anterolisthesisDDD at L3-4 and L4-5 with posterior bulgingCervical MRI done 09/13/19 showed ML DDD and bulging at C4-5, C5-6, C6-7, T1-2, and T2-3NFN at these levelsDiffuse FJACT scan cervical spine and lumbar spine done 10/29/2019 showed similar findings to the 09/13/2019 MRI cervicalgia The symptoms are reported as being mild. The symptoms occur daily. She states the symptoms are chronic. Bilateral neck pain cervicalgia The symptoms are reported as being moderate. The symptoms occur constantly. She states the symptoms are chronic. Pain level - 5S/P ISAIAS done 07/04 states she has had no relief with the tingling cervicalgia (comments) Last seen 07/02/2020- started on LyricaShe did not start until last week- initially only at night for one week- now bid- she thinks there may be some trouble sleeping since starting it. paresthesias may be less frequent but hard to tell.[place] PDMP report shows it was filled 07/02/2020CESI #2 done 07/04/2020- no more improvement, trouble sleeping after both injections, some fatigue for one weekCESI #1 done 06/20/2020- neck pain has resolved, continues to have paresthesias in left UECC left UE paresthesias to thumbTried Gabapentin caused oral ulcersThis episode started in in MarchInjections- LEAH in 2014- lasted for 5 yearsTried Chiropractic treatments and PT currently- makes worseDenies ASA or A/CsMRI T-spine shows diffuse disc dessication, posterior bulgingMild narrowing at T9-10Diffuse FJALumbar MRI done 09/13/2019 showed mild FJA L3-S1L4-5 2mm anterolisthesisDDD at L3-4 and L4-5 with posterior bulgingCervical MRI done 09/13/19 showed ML DDD and bulging at C4-5, C5-6, C6-7, T1-2, and T2-3NFN at these levelsDiffuse FJACT scan cervical spine and lumbar spine done 10/29/2019 showed similar findings to the 09/13/2019 MRI cervicalgia (comments) ISAIAS #1 d one 06/20/2020- neck pain has resolved, continues to have paresthesias in left UECC left UE paresthesias to thumbTried Gabapentin caused oral ulcersThis episode started in in MarchInjections- LEAH in 2014- lasted for 5 yearsTried Chiropractic treatments and PT currently- makes worseDenies ASA or A/CsMRI T-spine shows diffuse disc dessication, posterior bulgingMild narrowing at T9-10Diffuse FJALumbar MRI done 09/13/2019 showed mild FJA L3-S1L4-5 2mm anterolisthesisDDD at L3-4 and L4-5 with posterior bulgingCervical MRI done 09/13/19 showed ML DDD and bulging at C4-5, C5-6, C6-7, T1-2, and T2-3NFN at these levelsDiffuse FJACT scan cervical spine and lumbar spine done 10/29/2019 showed similar findings to the 09/13/2019 MRIPA PDMP report shows no meds cervicalgia The symptoms are reported as being mild. The symptoms occur constantly. Aggravating factors include tingling. Relieving factors include nothing. She states the symptoms are chronic. pain level 2 cervicalgia (comments) CC is nec k pain- left>right- left UE paresthesias to thumbThis episode started in in MarchInjections- LEAH in 2014- lasted for 5 yearsTried Chiropractic treatments and PT currently- makes worseDenies ASA or A/CsMRI T-spine shows diffuse disc dessication, posterior bulgingMild narrowing at T9-10Diffuse FJALumbar MRI done 09/13/2019 showed mild FJA L3-S1L4-5 2mm anterolisthesisDDD at L3-4 and L4-5 with posterior bulgingCervical MRI done 09/13/19 showed ML DDD and bulging at C4-5, C5-6, C6-7, T1-2, and T2-3NFN at these levelsDiffused FJACT scan cervical spine and lumbar spine done 10/29/2019 showed similar findings to the 09/13/2019 MRIPA PDMP report shows no meds cervicalgia The symptoms are reported as being severe. The symptoms occur constantly. Aggravating factors include neck movements. Relieving factors include nothing. She states the symptoms are chronic. pain level 8 Functional Status Date Functional Assessmen t No Information Instructions Date Instruction Additional Infor mation No Information Assessments Type Assessment Date No Information Patient Care Teams Name Effective Dates (start - stop) Status Members No Information
--- OUTSIDE RECORDS SUMMARY | 2025-04-21 10:03 | XMS_ITS | Clinical Summary ---
Author Organization [facility] Address [address] [address] Phone Care Team Providers Care Personal Computer Network Analyst Name Role Phone Alexis Cochran MD Primary Care Provider Allergies No known active allergies Medications predniSONE (DELTASONE) 20 mg tablet Take 20 mg by mouth daily. 04/30/2022 Active pramipexole (MIRAPEX) 0.5 mg tablet Take 0.5 mg by mouth 2 times daily. 06/03/2022 Active ofloxacin (OCUFLOX) 0.3 % solution INSTILL 1 DROP 4 TIMES DAILY INTO RIGHT EYE STARTING 3 DAYS BEFORE SURGERY THEN FOR 1 WEEK AFTER 05/12/2022 Active Euthyrox 125 mcg tablet Take 125 mcg by mouth daily. 06/03/2022 Active Irbesartan (AVAPRO) 300 mg tablet Take 300 mg by mouth daily. 06/03/2022 Active hydroCHLOROthia zide 25 mg tablet Take 25 mg by mouth daily. 06/03/2022 Active escitalopram oxalate (LEXAPRO) 20 mg tablet Take 20 mg by mouth daily. 06/03/2022 Active cetirizine (ZyrTEC) 10 mg tablet TAKE 1 TABLET BY MOUTH ONCE DAILY NEEDED 06/03/2022 Active atenoloL (TENORMIN) 25 mg tablet Take 25 mg by mouth daily. 06/03/2022 Active Active Problems No known active problems Social History Tobacco Use Types Packs/Day Years Used Date Smoking Tobacco: Never Tobacco Cessation:Counseling Given: Not Answered Comments Unknown Sex and Gender Information Value Date Recorded Sex Assigned at Not on file Legal Sex Female 2:01 PM CDT Gender Identity Not on file Sexual Orientation Not on file Last Filed Vital Signs Vital Sign Reading Time Taken Comments Blood Pressure 134/62 09/08/2022 1:33 PM DAY CARE ATTENDANT Pulse 56 09/08/2022 1:33 PM DAY CARE ATTENDANT Temperature 36.2 C (97.2 F) 09/08/2022 1:28 PM DAY CARE ATTENDANT Respiratory Rate 18 09/08/2022 1:33 PM DAY CARE ATTENDANT Oxygen Saturation 96% 09/08/2022 1:33 PM DAY CARE ATTENDANT Inhaled Oxygen Concentration - - Weight 113.4 kg (250 lb) 09/08/2022 12:43 PM DAY CARE ATTENDANT Height 154.9 cm (5' 1 ) 09/08/2022 12:43 PM DAY CARE ATTENDANT Body Mass Index 47.24 09/08/2022 12:43 PM DAY CARE ATTENDANT Plan of Treatment Health Maintenance Due Date Last Done Comments DTAP/TDAP/TD VACCINES (1 - Tdap) 1969 BREAST CANCER SCREENING 1990 COLORECTAL SCREENING 1995 Colorectal Cancer Screening 1995 FIT-DNA Q 3 years 1995 FIT/FOBT Q 1 year 1995 Flex Sig/CT Colonography Q 5 years 1995 PNEUMOCOCCAL VACCINE 50+ YEARS (1 of 1 - PCV) 11/02/19 ZOSTER VACCINE (1 of 2) 2000 OSTEOPOROSIS SCREENING 2015 INFLUENZA VACCINE (#1) 2024 RSV VACCINE (60+ or ) (1 - 1-dose 75+ series) 2025 Medical Devices Implanted Type Area Manager Car Device Identifier Shelf Expiration Date Model / Serial / Lot Lens Iol Tecnis Eyhance 16.0 [id number] - [id number] Implanted:Qty: 1 on 08/11/2022 by Hank Powell MD at [facility] Lens Right: Eye [employer] 06/06/2025 [id number] / [id number] / Lens Iol Tecnis Eyhance 17.5 [id number] - [id number] Implanted:Qty: 1 on 09/08/2022 by Hank Powell MD at [facility] Lens Left: Eye [employer] 05/18/2025 [id number] / [id number] / Insurance [facility] [id number] MEDICAID [place] Advance Directives For more information, please contact: [phone] * Full Code (Latest Code Status on File) Date Activated Date Inactivated Comments 08/11/2022 12:15 PM 08/11/2022 4:15 PM Care Teams Personal Computer Network Analyst Relationship Specialty Start Date End Date Alexis Cochran MD [address] [place] [id number] PCP - General Internal Medicine 08/11/22
[2025-04-21 10:13] VITALS: BP 128/61; PULSE 56; RESP 18; TEMP 36.6; O2SAT 97; BMI 51.3
--- NOTE | 2025-04-21 10:15 | ED_ITS ---
HPI - Abdominal Pain 2 General: Chief Complaint: Dizziness Stated Complaint: dizzy Time Seen by Provider: 04/21/25 10:15 History of Present Illness: Chief complaint is spinning sensation. The patient states that for the last 3 weeks if she turns her head quickly she will feel like her head is spinning in a [place]. She states she saw her ENT and he said that her ears were fine but they have not prescribed her anything. She states they set her up for an MRI which is scheduled for 16 May. She states that she has no focal numbness weakness or tingling her arms or legs. She does get some headaches off and on at times but no headache that is new or current. No double vision. She states sometimes she feels like she has some pressure behind her eyes causing it to be hard to focus her vision but between these episodes her vision does not change. No vomiting but does have nausea with it at times. No chest pain or palpitations or shortness of breath. The nurse states she said she has some shortness of breath and she states that was just for a moment while she was getting checked in. She states she had a heart cath with stents about a week ago. It was through her wrist and that is healing well and not bothering her. No chest pain or chest discomfort. No black bloody stools. No abdominal pain. No dysuria. Related Data Home Medications ?Medication ?Instructions ?Recorded ?Confirmed acetaminophen 500 mg tablet 500 mg PO Q6H PRN fever or pain 07/26/22 04/16/25 (Tylenol Extra Strength) multivitamin 1 tab PO DAILY 10/06/2203/25 escitalopram oxalate 20 mg tablet 20 mg PO DAILY 07/0804/16/25 trazodone 100 mg tablet 100 mg PO 199907/08/2403/25 hydrocortisone 1 % topical cream 1 applic topical TID PRN Itching 09/03/24 04/16/25 vitamin B complex 1 cap PO DAILY 09/03/2403/25 vitamin E (dl, acetate) 180 mg 180 mg PO DAILY 4 04/16/25 (400 unit) capsule levocetirizine 5 mg tablet 5 mg PO DAILY 09/07/2403/25 levothyroxine 150 mcg tablet 150 mcg PO QAM 09/07/24 0 04/16/25 atenolol 25 mg tablet 25 mg PO DAILY 12/20/2403/25 Held on 04/17/25. Instructions: Resume on 04/25/25. hold until you see cardiology promethazine-DM 6.25 mg-15 mg/5 mL 10 ml PO Q6H PRN Co ugh 12/20/24 04/16/25 oral syrup sodium chloride 0.65 % nasal spray 2 spray intranasal BEDTIME 12/20/24 04/16/25 aerosol (Deep Sea Nasal) aluminum-mag hydroxide-simethicone 30 ml PO QID PRN Ac id Reflux 04/16/25 04/16/25 200 mg-200 mg-20 mg/5 mL oral susp (Antacid Anti-Gas) furosemide 40 mg tablet 40 mg PO DAILY 04/16/2503/25 ondansetron 8 mg disintegrating 8 mg PO Q8H PRN Nausea And Vomiting 04/16/25 04/16/25 tablet turmeric 450 mg-turmeric root 2 cap PO DAILY 04/16/25 04/16/25 extract 50 mg capsule Previous Rx's ?Medication ?Instructions ?Recorded omeprazole 20 mg capsule,delayed 20 mg PO DAILY PRN re flux 90 days 01/11/24 release #90 caps potassium chloride 20 mEq 20 meq PO DAILY PRN with las ix 90 01/11/24 tablet,extended release days #90 tabs pramipexole 0.5 mg tablet 0.5 mg PO BID 90 days #180 t abs 01/11/24 cyclobenzaprine 5 mg tablet 5 mg PO TID PRN muscle spa sm 90 04/20/24 days #90 tabs diclofenac sodium 1 % topical gel 4 g topical QID #100 grams 06/21/24 (Voltaren Arthritis Pain) polyethylene glycol 3350 17 4 g PO DAILY #850 grams gram/dose oral powder (Miralax) albuterol sulfate 90 mcg/actuation 1 inh inhalation QI D PRN shortness 07/30/24 aerosol inhaler of breath or wheezing #6.7 g alejandro fluticasone propionate 50 2 spray intranasal DAILY #16 grams 07/30/24 mcg/actuation nasal spray,suspension (Flonase Allergy Relief) nystatin 100,000 unit/gram topical 1 applic topical BI D PRN rash 7 07/30/24 ointment days #30 grams irbesartan 150 mg tablet 150 mg PO DAILY #90 tabs Sole Supports #1 ea 02/11/25 hydrochlorothiazide 25 mg tablet 25 mg PO DAILY #90 ta bs 02/12/25 tramadol 50 mg tablet 50 mg PO Q12H PRN pain #60 t abs 02/18/25 hydrocodone 5 mg-acetaminophen 325 1 tab PO BID PRN wo rse shoulder 03/19/25 mg tablet pain 30 days #30 tabs aspirin 81 mg capsule 81 mg PO DAILY 30 days #30 c aps 04/17/25 atorvastatin 40 mg tablet 40 mg PO DAILY 30 days #30 t abs 04/17/25 clopidogrel 75 mg tablet (Plavix) 75 mg PO DAILY 30 da ys #30 tabs 04/17/25 nitroglycerin 0.4 mg sublingual 0.4 mg sublingual Q5M PRN chest 04/17/25 tablet pain 30 days #30 tabs meclizine 25 mg tablet 25 mg PO .q8 PRN dizziness # 20 tabs 04/21/25 Allergies Allergy/AdvReac Type Severity Reaction Status Date / Time adhesive tape Allergy Intermediate ALGY-Rash Verified 03/29/25 08:02 meperidine (From Demerol) Allergy Mild ALGY-RASH Verified 03/29/25 08:02 morphine Allergy Mild ALGY-RASH Verified 03/29/25 08:02 pantoprazole (From Protonix) Allergy Mild ALGY-RASH Verified 03/29/25 08:02 imipramine AdvReac Mild ADR-FLU Verified 03/29/25 08:02 LIKE SYMPTOMS promethazine (From Phenergan) AdvReac Mild ADR-RESTLESS Verified 03/29/25 08:02 LEGS celecoxib (From Celebrex) AdvReac ADR-INCREASED Verified 03/29/25 08:02 APPETITE lisinopril AdvReac ADR-COUGH Verified 03/29/25 08:02 PFSH ED 2 PFSH: Medical History Bariatric surgery status Arthritis Pain in both feet Tongue lesion Family hx of colon cancer father Coronary artery disease 2 stents 09/16 Insomnia Pain management contract signed 1 tramadol; 4 hydrocodone Encounter for chronic pain management tramadol legacy patient; now hydrocodone prn worst pain can't take NSAIDs; failed gabapentin and pregabalin DANITZA on CPAP Bilateral lower extremity edema Morbid obesity with BMI of 45.0-49.9, adult Depression Heart palpitations CHF (congestive heart failure) Degenerative disk disease Cervical radiculopathy at C6 Hyperlipidemia Restless leg syndrome GERD (gastroesophageal reflux disease) Hypothyroidism Benign hypertension Surgical History Hx of cardiac catheterization 11.3.24 2 stents O[facility] H/O gastric sleeve 2010 S/P knee replacement left S/P tonsillectomy and adenoidectomy S/P cholecystectomy S/P cataract surgery bilateral History of left mastoidectomy Hx of section X 2 S/P appendectomy H/O tubal ligation H/O tympanostomy H/O: hysterectomy w/ BSO done for fibroids H/O rhinoplasty History of carpal tunnel surgery bilateral H/O decompression of ulnar nerve bilateral Family History Brother Prostate cancer Father Colon cancer Mother Brain cancer Other Cancer Diabetes Social History Smoking and tobacco/nicotine status: never used tobacco/nicotine Second hand smoke exposure: No Alcohol intake: never Substance/Drug Use: never Adopted: No Housing: Assisted Living Facility Marital status: Marital status details: they live at [facility] Number of children: 3 Highest education level completed: High School Graduate service: No Current occupational status: retired Current occupational exposures/hazards: Yes 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 Pupils equal reactive to light. Full range ocular motion. No nystagmus at this time. Neck is supple. She has no drift in her arms or legs. Brisk intact [id number]. No truncal ataxia. Heart is regular rhythm. Lung sounds are clear. No increased work of breathing. Abdomen soft nontender. Extremities warm well-perfused. No calf tenderness or pitting edema. Speech is clear. TM on the left limited visualization due to cerumen. She had no tenderness over mastoid. Right TM appears normal as does the canal. No facial droop. Course 2 Vital Signs: Vital signs: Vital Signs Temperature 97.8 F 04/21/25 10:13 Pulse Rate 56 L 04/21/25 10:13 Respiratory Rate 18 04/21/25 10:13 Blood Pressure 128/61 04/21/25 10:13 Pulse Oximetry 97 04/21/25 10:13 Oxygen Delivery Me thod Room Air 04/21/25 10:13 MDM - Abdominal Pain Medical Decision Making Patient presents complaining of 3 weeks of spinning sensation when she moves her head quickly. She states that she has not fallen but she states if she moves her head real quickly she will feel off balance and like she is spinning. She states she has had some just generalized low energy as well but otherwise denies any focal complaints. She has no evident focal neurologic deficit on exam. She has no evident cerebellar dysfunction. I had her turn her head to the side to look in her ears and she states she started feeling like her head was spinning again and she closes her eyes. I did not see any nystagmus at this time however once I could get her to open her eyes. Patient denies any lightheadedness. She had recent heart cath per report and stents placed per her report however she denies any chest pain or difficulty breathing to me. Nurse indicated that she did states she started feeling some shortness of breath the patient tells me that was just momentary while they were checking her in. She states she has not been having any trouble breathing or dyspnea on exertion. No new leg pain or swelling. She denies black or bloody stools to suggest blood loss. It is not lightheadedness by her description. Cardiac dysrhythmia or PE or ND unlikely by exam and history. Certainly central cause of vertigo considered however she has had symptoms for 3 weeks and are intermittent and reproducible with movement. Patient has no neurologic deficit here on exam. I will get a CT scan of her head and CBC CMP urinalysis chest x-ray EKG. I ordered meclizine 25 mg p.o. for dizziness and Zofran 4 mg ODT for nausea and will reassess. Patient's white count was normal. Hemoglobin and platelet did not show significant abnormality. Creatinine was normal. Urinalysis not suggestive of infection. CT of the head negative for acute process per radiology. With patient's dizziness symptoms and her risk factors I recommended MRI to evaluate for central cause. MRI was negative for acute stroke. I advised limitations of MRI however based on exam history reproducible symptoms this is most likely peripheral vertigo. Will place on meclizine as needed. Advised fall precautions. The patient was able to get up and ambulate here and states she feels much better. She states she has a walker at home and is asking for discharge and feels comfortable with continued outpatient management. Advised fall precautions outpatient follow-up and limits of ED evaluation and return instructions. Lab Data 04/21/25 11:29 04/21/25 11:29 Labs/Radiology: Radiology Impressions Chest X-Ray 04/21/25 10:24 IMPRESSION: No acute findings. Head CT 04/21/25 10:52 IMPRESSION: 1. No acute intracranial abnormality. 2. Chronic sinusitis right sphenoid sinus. Head MRI 04/21/25 12:54 IMPRESSION: No acute findings. Laboratory Results WBC 8.64 10^3/uL (3.29-11.43) 04/21/25 11:29 RBC 4.57 10^6/uL (3.85-5.65) 04/21/25 11:29 Hgb 11.70 g/dL (11.27-16.99) 04/21/25 11:29 Hct 37.8 % (36-47) 04/21/25 11:29 MCV 82.7 fl (85-98) L 04/21/25 11:29 MCH 25.6 pg (27-33) L 04/21/25 11:29 MCHC 31.0 g/dL (30-55) 04/21/25 11:29 RDW 17.2 % (12.1-15.1) H 04/21/25 11:29 Plt Count 194 10^3/cmm (157-399) 04/21/25 11:29 MPV 9.3 fL (7.4-10.4) 04/21/25 11:29 Neut % (Auto) 70.2 % 04/21/25 11:29 Lymph % (Auto) 19.1 % 04/21/25 11:29 [place] % (Auto) 9.6 % 04/21/25 11:29 Eos % (Auto) 0.7 % 04/21/25 11:29 Baso % (Auto) 0.1 % 04/21/25 11:29 Neut # (Auto) 6.06 10^3/uL (1.8-7.7) 04/21/25 11: Lymph # (Auto) 1.7 10^3/uL (0.8-4.8) 04/21/25 11: [place] # (Auto) 0.8 10^3/uL (0.2-0.9) 04/21/25 11: Eos # (Auto) 0.1 10^3/uL (0.0-0.8) 04/21/25 11: Baso # (Auto) 0.0 10^3/uL (0.0-0.1) 04/21/25 11: Nucleated RBC % (auto) 0 % 04/21/25 11: Nucleated RBCs # 0.0 /100WBC 04/21/25 11:29 Sodium 132 mmol/L (136-145) L 04/21/25 11:29 Potassium 3.7 mmol/L (3.5-5.1) 04/21/25 11: Chloride 92 mmol/L (98-107) L 04/21/25 11: Carbon Dioxide 30 mmol/L (22-29) H 04/21/25 11:29 Anion Gap 13.7 (5-19) 04/21/25 11:29 BUN 12 mg/dL (8-23) 04/21/25 11:29 Creatinine 0.5 mg/dL (0.5-0.9) 04/21/25 11:29 GFR Calculation Not Reportable 04/21/25 11: Glucose 102 mg/dL (65-115) 04/21/25 11: Calculated Osmolality 274 mOsm/kg (285-295) L 04/21/25 11:29 Calcium 9.1 mg/dL (8.5-10.5) 04/21/25 11:29 Total Bilirubin 0.8 mg/dL (0.15-1.2) 04/21/25 11: AST 14 U/L (0-32) 04/21/25 11: ALT 16 U/L (0-33) 04/21/25 11: Alkaline Phosphatase 98 U/L (35-105) 04/21/25 11:29 Total Protein 5.7 g/dL (6.6-8.7) L 04/21/25 11:29 Albumin 3.4 g/dL (3.5-5.2) L 04/21/25 11: Globulin 2.3 g/dL (1.3-4.6) 04/21/25 11:29 Urine Color Yellow (Yellow) 04/21/25 10:20 Urine Appearance Clear (CLEAR) 04/21/25 10:20 Urine pH 6.5 (5-7) 04/21/25 10:20 Ur Specific [place] 1.005 (1.005-1.030) 04/21/25 10:20 Urine Protein Negative (Negative) 04/21/25 10:20 Urine Glucose (UA) Negative (Normal) 04/21/25 10:20 Urine Ketones Negative (Negative) 04/21/25 10:20 Urine Blood Negative (Negative) 04/21/25 10:20 Urine Nitrate Negative (Negative) 04/21/25 10:20 Urine Bilirubin Negative (Negative) 04/21/25 10:20 Urine Urobilinogen 1.0 mg/dL (Negative) 04/21/25 10:20 Ur Leukocyte Esterase Negative (Negative) 04/21/25 10:20 Urine RBC 0-2 /hpf (0-2) 04/21/25 10:20 Urine WBC 0-5 /hpf (0-5) 04/21/25 10:20 Ur Squamous Epith Cells 0-5 /hpf (0-5) 04/21/25 10:20 Amorphous Sediment Not Reportable 04/21/25 10:20 Urine Bacteria None seen /hpf (NONE) 04/21/25 10:20 Hyaline Casts 0.81 /lpf 04/21/25 10:20 All radiology interpretation(s) finalized by discharge Discharge Plan Discharge Patient Disposition: Home Clinical Impression: Vertigo, Dizziness Condition: Stable Prescriptions: New meclizine 25 mg tablet 25 mg PO .q8 PRN (Reason: dizziness) Qty: 20 0RF No Action multivitamin Tablet 1 tab PO DAILY irbesartan 150 mg tablet 150 mg PO DAILY Qty: 90 3RF (DME) Sole Supports See Rx Instructions .Route .MEDSUPPLY Qty: 1 0RF Rx Instructions: As directed hydrochlorothiazide 25 mg tablet 25 mg PO DAILY Qty: 90 1RF acetaminophen [Tylenol Extra Strength] 500 mg tablet 500 mg PO Q6H PRN (Reason: fever or pain) pramipexole 0.5 mg tablet 0.5 mg PO BID 90 Days Qty: 180 2RF omeprazole 20 mg capsule,delayed release(DR/EC) 20 mg PO DAILY PRN (Reason: reflux) 90 Days Qty: 90 2RF potassium chloride 20 mEq tablet extended release 20 meq PO DAILY PRN (Reason: with lasix) 90 Days Qty: 90 2RF cyclobenzaprine 5 mg tablet 5 mg PO TID PRN (Reason: muscle spasm) 90 Days Qty: 90 1RF diclofenac sodium [Voltaren Arthritis Pain] 1 % gel 4 g topical QID Qty: 100 2RF Rx Instructions: apply to single knee, ankle, foot; for foot includes sole/toes/top of foot polyethylene glycol 3350 [Miralax] 17 gram/dose powder 4 g PO DAILY Qty: 850 2RF fluticasone propionate [Flonase Allergy Relief] 50 mcg/actuation spray,suspension 2 spray intranasal DAILY Qty: 16 0RF Rx Instructions: administer into each nostril albuterol sulfate 90 mcg/actuation HFA aerosol inhaler 1 inh inhalation QID PRN (Reason: shortness of breath or wheezing) Qty: 6.7 0RF nystatin 100,000 unit/gram ointment 1 applic topical BID PRN (Reason: rash) 7 Days Qty: 30 0RF tramadol 50 mg tablet 50 mg PO Q12H PRN (Reason: pain) Qty: 60 0RF hydrocodone-acetaminophen 5-325 mg tablet 1 tab PO BID PRN (Reason: worse shoulder pain) 30 Days Qty: 30 0RF trazodone 100 mg tablet 100 mg PO 2000 escitalopram oxalate 20 mg tablet 20 mg PO DAILY hydrocortisone 1 % Cream 1 applic TOPICAL TID PRN (Reason: Itching) vitamin B complex Capsule 1 cap PO DAILY vitamin E (dl, acetate) 180 mg (400 unit) Capsule 180 mg PO DAILY levothyroxine 150 mcg tablet 150 mcg PO QAM levocetirizine 5 mg tablet 5 mg PO DAILY promethazine-DM 6.25-15 mg/5 mL Syrup 10 ml PO Q6H PRN (Reason: Cough) Deep Sea Nasal 0.65 % Aerosol,[place] 2 spray INTRANASAL BEDTIME atenolol 25 mg tablet 25 mg PO DAILY alum-mag hydroxide-simeth [Antacid Anti-Gas] 200-200-20 mg/5 mL Suspension 30 ml PO QID PRN (Reason: Acid Reflux) Rx Instructions: administer between meals and at bedtime furosemide 40 mg tablet 40 mg PO DAILY ondansetron 8 mg tablet,disintegrating 8 mg PO Q8H PRN (Reason: Nausea And Vomiting) turmeric-turmeric root extract 450-50 mg Capsule 2 cap PO DAILY atorvastatin 40 mg tablet 40 mg PO DAILY 30 Days Qty: 30 0RF clopidogrel [Plavix] 75 mg tablet 75 mg PO DAILY 30 Days Qty: 30 0RF nitroglycerin 0.4 mg tablet, sublingual 0.4 mg sublingual Q5M PRN (Reason: chest pain) 30 Days Qty: 30 0RF Rx Instructions: do not exceed 3 doses per episode aspirin 81 mg capsule 81 mg PO DAILY 30 Days Qty: 30 0RF Discharge Orders: Discharge ED (Routine); Ordered 04/21/25 Ordered By: Gianluca Snyder Referrals: Renetta Nugent MD [Primary Care Provider, Family Practice] Patient Instructions: Opioid Safety, Pain Management, Patient Portal & [place] Instructions Activity Restrictions/Additional Instructions: No walking without using your walker. Fall precautions. Follow-up on your test results with your doctor. Follow-up for reassessment with your doctor. Come back if worsening symptoms or concerns or unsafe or change in vision or weakness in your arms or legs or any worse. Review your medications with your doctor. Print Language: Faroese Coding Level of Care Code ED Mechanical Service Technician for Hossein Doe
--- NOTE | 2025-04-21 10:24 | XRR_ITS ---
PROCEDURE INFORMATION: Exam: XR Chest Exam date and time: 04/21/2025 10:30 AM Age: 74 years old Clinical indication: Other: Weakness; Prior surgery; Surgery date: 3-7 days post-operative; Surgery type: Cardiac stent; Additional info: Weakness; Cardiac stent placed last week TECHNIQUE: Imaging protocol: Radiologic exam of the chest. Views: 1 view. COMPARISON: CR XR chest 1V portable [id number] 04/15/2025 3:09 PM FINDINGS: Lungs: Unremarkable. No consolidation. Pleural spaces: Unremarkable. No pleural effusion. No pneumothorax. Heart/Mediastinum: Unremarkable. No cardiomegaly. Bones/joints: Unremarkable. XR/XR chest 1V portable [id number] IMPRESSION: No acute findings.
--- NOTE | 2025-04-21 10:25 | ECG_ITS ---
[facility] 2025-[facility]-21 Pat Name: Selena Salgado Department: Room: Gender: Female Ophthalmic Tech: : 1950 Requested By: Gianluca Snyder Order Number: [id number] Veronica MD: Georges Green M.D. Measurements Intervals [place] Rate: 54 P: 57 WA: 177 QRS: 60 QRSD: 100 T: 63 QT: 470 QTc: 446 Interpretive Statements SINUS BRADYCARDIA INCOMPLETE RIGHT BUNDLE BRANCH BLOCK [90+ ms QRS DURATION, TERMINAL R IN V1/V2, 40+ ms S IN I/aVL/V4/V5/V6] Compared to ECG 04/15/2025 17:54:03 No significant changes Electronically Signed On 04-25-2025 09:12:16 CDT by Georges Green M.D. [email or web address]
[2025-04-21 10:42] LABS: Bilirubin Urine Negative (Negative); Blood Urine Negative (Negative); Glucose Urine UA Negative (Normal); Ketones Urine Negative (Negative); Leukocyte Esterase Urine Negative (Negative); Nitrate Urine Negative (Negative); Protein Urine Negative (Negative); Specific Gravity, Urine 1.005 (1.005-1.030); Urine Appearance Clear (CLEAR); Urine Color Yellow (Yellow); pH Urine 6.5 (5-7)
[2025-04-21 10:44] LABS: Add Urine Microscopic? YES; Bacteria Urine None Seen /hpf; Hyaline Casts Urine 0.81 /lpf; RBC Urine 0-2 /hpf (0-2); Squamous Epithelial Cell Urine 0-5 /hpf (0-5); WBC Urine 0-5 /hpf (0-5)
--- NOTE | 2025-04-21 10:52 | CTR_ITS ---
PROCEDURE INFORMATION: Exam: CT Head Without Contrast Exam date and time: 04/21/2025 11:02 AM Age: 74 years old Clinical indication: Dizziness TECHNIQUE: Imaging protocol: Computed tomography of the head without contrast. Radiation optimization: All CT scans at this facility use at least one of these dose optimization techniques: automated exposure control; mA and/or kV adjustment per patient size (includes targeted exams where dose is matched to clinical indication); or iterative reconstruction. COMPARISON: CT head wo con* [id number] 04/18/2024 2:10 PM RADIATION DOSE METRICS: Total DLP (mGy-cm): 1145.98 FINDINGS: Brain: Normal. No hemorrhage. Unremarkable white matter. No mass effect. Cerebral ventricles: No ventriculomegaly. Paranasal sinuses: There is complete opacity of the right sphenoid sinus consistent with chronic sinusitis. The sinuses are otherwise well formed and clear Visualized sinuses are unremarkable. No fluid levels. Mastoid air cells: Visualized mastoid air cells are well aerated. Bones: Unremarkable. No acute fracture. Soft tissues: Unremarkable. Other findings: Comparison to prior examination similar findings are seen CT/CT head wo con* [id number] IMPRESSION: 1. No acute intracranial abnormality. 2. Chronic sinusitis right sphenoid sinus.
[2025-04-21] MEDS: meclizine 25 mg tablet PO (11:08)
[2025-04-21] MEDS: ondansetron hcl ODT 4 mg Tab PO (11:08)
[2025-04-21 11:36] LABS: Basophils % 0.1 %; Eosinophils # 0.1 10^3/uL (0.0-0.8); Eosinophils % 0.7 %; Hematocrit 37.8 % (36-47); Lymphocytes # 1.7 10^3/uL (0.8-4.8); Lymphocytes % 19.1 %; Mean Corpuscular Hemoglobin 25.6 pg (27-33); Mean Corpuscular Volume 82.7 fl (85-98); Mean Platelet Volume 9.3 fL (7.4-10.4); Monocytes # 0.8 10^3/uL (0.2-0.9); Monocytes % 9.6 %; Neutrophils # 6.06 10^3/uL (1.8-7.7); Neutrophils % 70.2 %; Nucleated Red Blood Cells % 0 %; Platelet Count 194 10^3/cmm (157-399); Red Blood Count 4.57 10^6/uL (3.85-5.65); Red Cell Distribution Width 17.2 % (12.1-15.1); White Blood Count 8.64 10^3/uL (3.29-11.43)
[2025-04-21 11:55] LABS: Alanine Aminotransferase 16 U/L (0-33); Albumin Level 3.4 g/dL (3.5-5.2); Alkaline Phosphatase 98 U/L (35-105); Anion Gap 13.7 (5-19); Aspartate Amino Transferase 14 U/L (0-32); Blood Urea Nitrogen 12 mg/dL (8-23); Calcium 9.1 mg/dL (8.5-10.5); Carbon Dioxide 30 mmol/L (22-29); Chloride 92 mmol/L (98-107); Globulin 2.3 g/dL (1.3-4.6); Glucose 102 mg/dL (65-115); Osmolality Calculated 274 mOsm/kg (285-295); Potassium 3.7 mmol/L (3.5-5.1); Sodium 132 mmol/L (136-145); Total Bilirubin 0.8 mg/dL (0.15-1.2); Total Protein 5.7 g/dL (6.6-8.7)
--- NOTE | 2025-04-21 12:54 | MRR_ITS ---
PROCEDURE INFORMATION: Exam: MR Head Without Contrast Exam date and time: 04/21/2025 1:44 PM Age: 74 years old Clinical indication: Pain; Dizziness; Headache; Additional info: Vertigo TECHNIQUE: Imaging protocol: Magnetic resonance imaging of the head without contrast. COMPARISON: CT head wo con* [id number] 04/21/2025 11:02 AM FINDINGS: Brain: There is diffuse mild volume loss. No acute infarct. No hemorrhage. Scattered T2/FLAIR hyperintensities are identified in the subcortical periventricular white matter compatible with chronic small vessel disease changes. No edema. Cerebral ventricles: Normal. No ventriculomegaly. Bones: Unremarkable. Paranasal sinuses: There is opacification of the right sphenoid air cell. No acute sinusitis. Mastoid air cells: Postoperative left mastoidectomy. No right mastoid effusion. Orbital cavities: Unremarkable. Soft tissues: Unremarkable. MR/MR head wo con* [id number] IMPRESSION: No acute findings.
--- NOTE | 2025-04-21 15:30 | W.ED.DIZZY ---
HPI - Dizziness General: Chief Complaint: Dizziness Stated Complaint: dizzy Time Seen by Provider: 04/21/25 10:15 Related Data Home Medications ?Medication ?Instructions ?Recorded ?Confirmed acetaminophen 500 mg tablet 500 mg PO Q6H PRN fever or pain 07/26/22 04/16/25 (Tylenol Extra Strength) multivitamin 1 tab PO DAILY 10/06/22 04/16/25 escitalopram oxalate 20 mg tablet 20 mg PO DAILY 07/08/24 04/16/25 trazodone 100 mg tablet 100 mg PO 199907/08/24 04/16/25 hydrocortisone 1 % topical cream 1 applic topical TID PRN Itching 09/03/24 04/16/25 vitamin B complex 1 cap PO DAILY 09/03/24 04/16/25 vitamin E (dl, acetate) 180 mg 180 mg PO DAILY 09/03/24 04/16/25 (400 unit) capsule levocetirizine 5 mg tablet 5 mg PO DAILY 09/07/24 04/16/25 levothyroxine 150 mcg tablet 150 mcg PO QAM 09/07/24 04/16/25 atenolol 25 mg tablet 25 mg PO DAILY 12/20/24 04/16/25 Held on 04/17/25. Instructions: Resume on 04/25/25. hold until you see cardiology promethazine-DM 6.25 mg-15 mg/5 mL 10 ml PO Q6H PRN Cough 12/20/24 04/16/25 oral syrup sodium chloride 0.65 % nasal spray 2 spray intranasal BEDTIME 12/20/24 04/16/25 aerosol (Deep Sea Nasal) aluminum-mag hydroxide-simethicone 30 ml PO QID PRN Acid Reflux 04/16/25 04/16/25 200 mg-200 mg-20 mg/5 mL oral susp (Antacid Anti-Gas) furosemide 40 mg tablet 40 mg PO DAILY 04/16/25 04/16/25 ondansetron 8 mg disintegrating 8 mg PO Q8H PRN Nausea And Vomiting 04/16/25 04/16/25 tablet turmeric 450 mg-turmeric root 2 cap PO DAILY 04/16/25 04/16/25 extract 50 mg capsule Previous Rx's ?Medication ?Instructions ?Recorded omeprazole 20 mg capsule,delayed 20 mg PO DAILY PRN reflux 90 days 01/11/24 release #90 caps potassium chloride 20 mEq 20 meq PO DAILY PRN with lasix 90 01/11/24 tablet,extended release days #90 tabs pramipexole 0.5 mg tablet 0.5 mg PO BID 90 days #180 tabs 01/11/24 cyclobenzaprine 5 mg tablet 5 mg PO TID PRN muscle spasm 90 04/20/24 days #90 tabs diclofenac sodium 1 % topical gel 4 g topical QID #100 grams 06/21/24 (Voltaren Arthritis Pain) polyethylene glycol 3350 17 4 g PO DAILY #850 grams 07/26/24 gram/dose oral powder (Miralax) albuterol sulfate 90 mcg/actuation 1 inh inhalation QID PRN shortness 07/30/24 aerosol inhaler of breath or wheezing #6.7 grams fluticasone propionate 50 2 spray intranasal DAILY #16 grams 07/30/24 mcg/actuation nasal spray,suspension (Flonase Allergy Relief) nystatin 100,000 unit/gram topical 1 applic topical BID PRN rash 7 07/30/24 ointment days #30 grams irbesartan 150 mg tablet 150 mg PO DAILY #90 tabs 09/18/24 Sole Supports #1 ea 02/11/25 hydrochlorothiazide 25 mg tablet 25 mg PO DAILY #90 tabs 02/12/25 tramadol 50 mg tablet 50 mg PO Q12H PRN pain #60 tabs 02/18/25 hydrocodone 5 mg-acetaminophen 325 1 tab PO BID PRN worse shoulder 03/19/25 mg tablet pain 30 days #30 tabs aspirin 81 mg capsule 81 mg PO DAILY 30 days #30 caps 04/17/25 atorvastatin 40 mg tablet 40 mg PO DAILY 30 days #30 tabs 04/17/25 clopidogrel 75 mg tablet (Plavix) 75 mg PO DAILY 30 days #30 tabs 04/17/25 nitroglycerin 0.4 mg sublingual 0.4 mg sublingual Q5M PRN chest 04/17/25 tablet pain 30 days #30 tabs amoxicillin 500 mg capsule 500 mg PO BID 10 days #20 caps 04/21/25 meclizine 25 mg tablet 25 mg PO .q8 PRN dizziness #20 tabs 04/21/25 Allergies Allergy/AdvReac Type Severity Reaction Status Date / Time adhesive tape Allergy Intermediate ALGY-Rash Verified 03/29/25 08:02 meperidine (From Demerol) Allergy Mild ALGY-RASH Verified 03/29/25 08:02 morphine Allergy Mild ALGY-RASH Verified 03/29/25 08:02 pantoprazole (From Protonix) Allergy Mild ALGY-RASH Verified 03/29/25 08:02 imipramine AdvReac Mild ADR-FLU Verified 03/29/25 08:02 LIKE SYMPTOMS promethazine (From Phenergan) AdvReac Mild ADR-RESTLESS Verified 03/29/25 08:02 LEGS celecoxib (From Celebrex) AdvReac ADR-INCREASED Verified 03/29/25 08:02 APPETITE lisinopril AdvReac ADR-COUGH Verified 03/29/25 08:02 PFSH ED PFSH: Medical History Bariatric surgery status Arthritis Pain in both feet Tongue lesion Family hx of colon cancer father Coronary artery disease 2 stents 09/16 Insomnia Pain management contract signed 1.31.25 tramadol; 4.22.25 hydrocodone Encounter for chronic pain management tramadol legacy patient; now hydrocodone prn worst pain can't take NSAIDs; failed gabapentin and pregabalin DANITZA on CPAP Bilateral lower extremity edema Morbid obesity with BMI of 45.0-49.9, adult Depression Heart palpitations CHF (congestive heart failure) Degenerative disk disease Cervical radiculopathy at C6 Hyperlipidemia Restless leg syndrome GERD (gastroesophageal reflux disease) Hypothyroidism Benign hypertension Surgical History Hx of cardiac catheterization 11.3.24 2 stents [facility] H/O gastric sleeve 2010 S/P knee replacement left S/P tonsillectomy and adenoidectomy S/P cholecystectomy S/P cataract surgery bilateral History of left mastoidectomy Hx of section X 2 S/P appendectomy H/O tubal ligation H/O tympanostomy H/O: hysterectomy w/ BSO done for fibroids H/O rhinoplasty History of carpal tunnel surgery bilateral H/O decompression of ulnar nerve bilateral Family History Brother Prostate cancer Father Colon cancer Mother Brain cancer Other Cancer Diabetes Social History Smoking and tobacco/nicotine status: never used tobacco/nicotine Second hand smoke exposure: No Alcohol intake: never Substance/Drug Use: never Adopted: No Housing: Assisted Living Facility Marital status: Marital status details: they live at [facility] Number of children: 3 Highest education level completed: High School Graduate service: No Current occupational status: retired Current occupational exposures/hazards: Yes 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 Lab Data 04/21/25 11:29 04/21/25 11:29 Radiology Impressions Chest X-Ray 04/21/25 10:24 IMPRESSION: No acute findings. Head CT 04/21/25 10:52 IMPRESSION: 1. No acute intracranial abnormality. 2. Chronic sinusitis right sphenoid sinus. Head MRI 04/21/25 12:54 IMPRESSION: No acute findings. Laboratory Results WBC 8.64 10^3/uL (3.29-11.43) 04/21/25 11:29 RBC 4.57 10^6/uL (3.85-5.65) 04/21/25 11:29 Hgb 11.70 g/dL (11.27-16.99) 04/21/25 11:29 Hct 37.8 % (36-47) 04/21/25 11:29 MCV 82.7 fl (85-98) L 04/21/25 11:29 MCH 25.6 pg (27-33) L 04/21/25 11:29 MCHC 31.0 g/dL (30-55) 04/21/25 11:29 RDW 17.2 % (12.1-15.1) H 04/21/25 11:29 Plt Count 194 10^3/cmm (157-399) 04/21/25 11:29 MPV 9.3 fL (7.4-10.4) 04/21/25 11: Neut % (Auto) 70.2 % 04/21/25 11: Lymph % (Auto) 19.1 % 04/21/25 11: [place] % (Auto) 9.6 % 04/21/25 11: Eos % (Auto) 0.7 % 04/21/25 11: Baso % (Auto) 0.1 % 04/21/25 11: Neut # (Auto) 6.06 10^3/uL (1.8-7.7) 04/21/25 11: Lymph # (Auto) 1.7 10^3/uL (0.8-4.8) 04/21/25 11: [place] # (Auto) 0.8 10^3/uL (0.2-0.9) 04/21/25 11: Eos # (Auto) 0.1 10^3/uL (0.0-0.8) 04/21/25 11: Baso # (Auto) 0.0 10^3/uL (0.0-0.1) 04/21/25 11: Nucleated RBC % (auto) 0 % 04/21/25 11: Nucleated RBCs # 0.0 /100WBC 04/21/25 11: Sodium 132 mmol/L (136-145) L 04/21/25 11: Potassium 3.7 mmol/L (3.5-5.1) 04/21/25 11: Chloride 92 mmol/L (98-107) L 04/21/25 11: Carbon Dioxide 30 mmol/L (22-29) H 04/21/25 11:29 Anion Gap 13.7 (5-19) 04/21/25 11:29 BUN 12 mg/dL (8-23) 04/21/25 11: Creatinine 0.5 mg/dL (0.5-0.9) 04/21/25 11: GFR Calculation Not Reportable 04/21/25 11: Glucose 102 mg/dL (65-115) 04/21/25 11:29 Calculated Osmolality 274 mOsm/kg (285-295) L 04/21/25 11:29 Calcium 9.1 mg/dL (8.5-10.5) 04/21/25 11:29 Total Bilirubin 0.8 mg/dL (0.15-1.2) 04/21/25 11: AST 14 U/L (0-32) 04/21/25 11: ALT 16 U/L (0-33) 04/21/25 11: Alkaline Phosphatase 98 U/L (35-105) 04/21/25 11:29 Total Protein 5.7 g/dL (6.6-8.7) L 04/21/25 11: Albumin 3.4 g/dL (3.5-5.2) L 04/21/25 11: Globulin 2.3 g/dL (1.3-4.6) 04/21/25 11: Urine Color Yellow (Yellow) 04/21/25 10:20 Urine Appearance Clear (CLEAR) 04/21/25 10:20 Urine pH 6.5 (5-7) 04/21/25 10:20 Ur Specific [place] 1.005 (1.005-1.030) 04/21/25 10:20 Urine Protein Negative (Negative) 04/21/25 10:20 Urine Glucose (UA) Negative (Normal) 04/21/25 10:20 Urine Ketones Negative (Negative) 04/21/25 10:20 Urine Blood Negative (Negative) 04/21/25 10:20 Urine Nitrate Negative (Negative) 04/21/25 10:20 Urine Bilirubin Negative (Negative) 04/21/25 10:20 Urine Urobilinogen 1.0 mg/dL (Negative) 04/21/25 10:20 Ur Leukocyte Esterase Negative (Negative) 04/21/25 10:20 Urine RBC 0-2 /hpf (0-2) 04/21/25 10:20 Urine WBC 0-5 /hpf (0-5) 04/21/25 10:20 Ur Squamous Epith Cells 0-5 /hpf (0-5) 04/21/25 10:20 Amorphous Sediment Not Reportable 04/21/25 10:20 Urine Bacteria None seen /hpf (NONE) 04/21/25 10:20 Hyaline Casts 0.81 /lpf 04/21/25 10:20 Discharge Plan Discharge Patient Disposition: Home Clinical Impression: Vertigo, Dizziness Condition: Stable Prescriptions: New meclizine 25 mg tablet 25 mg PO .q8 PRN (Reason: dizziness) Qty: 20 0RF amoxicillin 500 mg capsule 500 mg PO BID 10 Days Qty: 20 0RF No Action multivitamin Tablet 1 tab PO DAILY irbesartan 150 mg tablet 150 mg PO DAILY Qty: 90 3RF (DME) Sole Supports See Rx Instructions .Route .MEDSUPPLY Qty: 1 0RF Rx Instructions: As directed hydrochlorothiazide 25 mg tablet 25 mg PO DAILY Qty: 90 1RF acetaminophen [Tylenol Extra Strength] 500 mg tablet 500 mg PO Q6H PRN (Reason: fever or pain) pramipexole 0.5 mg tablet 0.5 mg PO BID 90 Days Qty: 180 2RF omeprazole 20 mg capsule,delayed release(DR/EC) 20 mg PO DAILY PRN (Reason: reflux) 90 Days Qty: 90 2RF potassium chloride 20 mEq tablet extended release 20 meq PO DAILY PRN (Reason: with lasix) 90 Days Qty: 90 2RF cyclobenzaprine 5 mg tablet 5 mg PO TID PRN (Reason: muscle spasm) 90 Days Qty: 90 1RF diclofenac sodium [Voltaren Arthritis Pain] 1 % gel 4 g topical QID Qty: 100 2RF Rx Instructions: apply to single knee, ankle, foot; for foot includes sole/toes/top of foot polyethylene glycol 3350 [Miralax] 17 gram/dose powder 4 g PO DAILY Qty: 850 2RF fluticasone propionate [Flonase Allergy Relief] 50 mcg/actuation spray,suspension 2 spray intranasal DAILY Qty: 16 0RF Rx Instructions: administer into each nostril albuterol sulfate 90 mcg/actuation HFA aerosol inhaler 1 inh inhalation QID PRN (Reason: shortness of breath or wheezing) Qty: 6.7 0RF nystatin 100,000 unit/gram ointment 1 applic topical BID PRN (Reason: rash) 7 Days Qty: 30 0RF tramadol 50 mg tablet 50 mg PO Q12H PRN (Reason: pain) Qty: 60 0RF hydrocodone-acetaminophen 5-325 mg tablet 1 tab PO BID PRN (Reason: worse shoulder pain) 30 Days Qty: 30 0RF trazodone 100 mg tablet 100 mg PO 2000 escitalopram oxalate 20 mg tablet 20 mg PO DAILY hydrocortisone 1 % Cream 1 applic TOPICAL TID PRN (Reason: Itching) vitamin B complex Capsule 1 cap PO DAILY vitamin E (dl, acetate) 180 mg (400 unit) Capsule 180 mg PO DAILY levothyroxine 150 mcg tablet 150 mcg PO QAM levocetirizine 5 mg tablet 5 mg PO DAILY promethazine-DM 6.25-15 mg/5 mL Syrup 10 ml PO Q6H PRN (Reason: Cough) Deep Sea Nasal 0.65 % Aerosol,[place] 2 spray INTRANASAL BEDTIME atenolol 25 mg tablet 25 mg PO DAILY alum-mag hydroxide-simeth [Antacid Anti-Gas] 200-200-20 mg/5 mL Suspension 30 ml PO QID PRN (Reason: Acid Reflux) Rx Instructions: administer between meals and at bedtime furosemide 40 mg tablet 40 mg PO DAILY ondansetron 8 mg tablet,disintegrating 8 mg PO Q8H PRN (Reason: Nausea And Vomiting) turmeric-turmeric root extract 450-50 mg Capsule 2 cap PO DAILY atorvastatin 40 mg tablet 40 mg PO DAILY 30 Days Qty: 30 0RF clopidogrel [Plavix] 75 mg tablet 75 mg PO DAILY 30 Days Qty: 30 0RF nitroglycerin 0.4 mg tablet, sublingual 0.4 mg sublingual Q5M PRN (Reason: chest pain) 30 Days Qty: 30 0RF Rx Instructions: do not exceed 3 doses per episode aspirin 81 mg capsule 81 mg PO DAILY 30 Days Qty: 30 0RF Discharge Orders: Discharge ED (Routine); Ordered 04/21/25 Ordered By: Gianluca Snyder Referrals: Renetta Nugent MD [Primary Care Provider, Family Practice] Patient Instructions: Opioid Safety, Pain Management, Patient Portal & [place] Instructions Activity Restrictions/Additional Instructions: No walking without using your walker. Fall precautions. Follow-up on your test results with your doctor. Follow-up for reassessment with your doctor. Come back if worsening symptoms or concerns or unsafe or change in vision or weakness in your arms or legs or any worse. Review your medications with your doctor. Print Language: Spanish Coding Level of Care Code ED Customer Solutions Representative for Hossein Doe
== END 2025-04-21 15:52 | disposition home or self-care (01) ==
PROVIDERS: Emergency Provider Emergency Medicine; PCP Family Medicine
DX: R42 Dizziness and giddiness (principal); Z79.02 Long term (current) use of antithrombotics/antiplatelets; Z79.82 Long term (current) use of aspirin; I25.10 Atherosclerotic heart disease of native coronary artery without angina pectoris; E78.5 Hyperlipidemia, unspecified; I11.0 Hypertensive heart disease with heart failure; I50.9 Heart failure, unspecified
CPT/HCPCS: 36415; 70450; 70551; 71045; 80053; 81001; 85025; 93005; 99285; J8597; Q0162

== ENCOUNTER → 2025-04-29 14:05 | Outpatient (BNVA) | payer MEDICARE, MEDICAID, SELFPAY | PROVIDERS: PCP Family Medicine; Visit Provider Nurse Practitioner Family | DX: I25.10 Atherosclerotic heart disease of native coronary artery without angina pectoris (principal); I11.0 Hypertensive heart disease with heart failure; I50.9 Heart failure, unspecified; R00.0 Tachycardia, unspecified; Z95.5 Presence of coronary angioplasty implant and graft | CPT/HCPCS: 99214 ==

== ENCOUNTER → 2025-05-01 09:44 | Outpatient (BNVA) | payer MEDICARE, MEDICAID, SELFPAY | PROVIDERS: PCP Family Medicine; Visit Provider Student in an Organized Health Care Education/Training Program | DX: M75.122 Complete rotator cuff tear or rupture of left shoulder, not specified as traumatic (principal); M19.012 Primary osteoarthritis, left shoulder | CPT/HCPCS: 99213 ==

== ENCOUNTER → 2025-05-06 11:18 | Outpatient (BNVA) | payer MEDICARE, MEDICAID, SELFPAY | PROVIDERS: PCP Family Medicine; Visit Provider Family Medicine | DX: I10 Essential (primary) hypertension (principal); M79.89 Other specified soft tissue disorders; I50.22 Chronic systolic (congestive) heart failure; I25.118 Atherosclerotic heart disease of native coronary artery with other forms of angina pectoris; M54.2 Cervicalgia; G89.29 Other chronic pain | CPT/HCPCS: 80048; 83880; 85025 ==

== ENCOUNTER → 2025-05-13 10:27 | Outpatient (BNVA) | payer MEDICARE, MEDICAID, SELFPAY | PROVIDERS: PCP Family Medicine; Visit Provider Podiatrist Foot & Ankle Surgery | DX: M72.2 Plantar fascial fibromatosis (principal); M65.90 Unspecified synovitis and tenosynovitis, unspecified site; M19.071 Primary osteoarthritis, right ankle and foot; M21.611 Bunion of right foot; M21.612 Bunion of left foot; M21.621 Bunionette of right foot; M21.622 Bunionette of left foot; L60.8 Other nail disorders | CPT/HCPCS: 99214 ==

== ENCOUNTER 2025-05-17 11:23 | Outpatient (CLI) | payer MEDICARE, MEDICAID, SELFPAY ==
--- NOTE | 2025-05-17 11:30 | USCV_ITS ---
Selena Salgado Age: 74 Gender: F : 1950 Exam Date: 05/17/2025 11:37 Ordering Phys: Renetta Nugent MD Technologist: [employer] Exam Location: [facility] [place]_ Indication: rt lower extremity HISTORY: Lower extremity swelling-right PROCEDURES: Venous duplex imaging was performed in only the right lower extremity. The following venous structures were evaluated: common femoral vein, profunda vein, proximal portion of the greater saphenous vein, superficial femoral vein, and the popliteal vein. In addition, the posterior tibial and peroneal trunk were evaluated. FINDINGS: Normal 2-D Doppler and augmentation and compressibility throughout the lower extremity venous structures. Additional imaging through the proximal calf veins also reveals no thrombus. Limited evaluation of the greater saphenous vein is patent with no thrombus. CONCLUSIONS No DVT left lower extremity. Dr. Vania Whitt DO (Electronically Signed) Final Date: 17 May 2025 13:07 S
== END 2025-05-17 11:24 | disposition home or self-care (01) ==
LOC: RAD 11:25
PROVIDERS: PCP Family Medicine; Visit Provider Family Medicine
DX: M79.89 Other specified soft tissue disorders (principal)
CPT/HCPCS: 93971

== ENCOUNTER 2025-05-21 11:51 | Outpatient (CLI) | payer MEDICARE, MEDICAID, SELFPAY ==
--- NOTE | 2025-05-21 11:45 | MR_ITS ---
WS: [id number] MRI BRAIN WITH HIGH-RESOLUTION IMAGING THROUGH THE INTERNAL AUDITORY CANALS WITHOUT AND WITH CONTRAST HISTORY: DIZZINESS AND GIDDINESS, left-sided ear pain. Prior LEFT mastoidectomy. COMPARISON: 04/21/2025 noncontrast MRI brain, CT head 04/21/2025 TECHNIQUE: Multiplanar, multisequence imaging is performed through the brain. Additional 3 mm imaging performed in multiple planes through the internal auditory canal. Postcontrast imaging with 20 ml's of MultiHance. No acute intracranial hemorrhage, midline shift, edema or mass effect. Mild bilateral symmetric cerebral and cerebellar atrophy. Scattered T2 and FLAIR signal hyperintensities from mild to moderate small vessel disease. No prior infarct. Ventricles and extra-axial spaces are normal. No inferior displacement the cerebellar tonsils. Empty sella turcica. No mass at the cerebellopontine angle or signal abnormality. Internal and external auditory canals: Unremarkable. Cranial nerves VII and VIII complexes: Unremarkable. No enhancement or mass. Cerebellopontine angles: Normal. Paranasal sinuses: Mucoperiosteal thickening most significant involving the posterior RIGHT ethmoid air cells and the RIGHT sphenoid sinus. Mastoid air cells: Status post LEFT mastoidectomy. Postsurgical changes in the temporal bone. No area of abnormal enhancement. Calvarium and scalp: Normal. Visualized [place] and dural venous sinuses demonstrate no abnormality. MR/MR iac's wo/w con* [id number] IMPRESSION: 1. Status post LEFT mastoidectomy. 2. No mass or signal abnormality at the cerebellopontine angle or along the in ternal auditory canals. 3. Mild cerebral and cerebellar atrophy and mild to moderate chronic small ves shani disease. 4. Empty sella turcica. 5. No abnormal enhancement. 6. Posterior RIGHT ethmoid sinus and RIGHT sphenoid sinusitis.
[2025-05-21] MEDS: gadobenate dimeglumine 20 mL vial IV (12:57)
== END 2025-05-21 11:52 | disposition home or self-care (01) ==
LOC: RAD 11:51
PROVIDERS: PCP Family Medicine; Visit Provider Specialist
DX: R42 Dizziness and giddiness (principal); H92.02 Otalgia, left ear; G44.89 Other headache syndrome; H95.192 Other disorders following mastoidectomy, left ear; G31.9 Degenerative disease of nervous system, unspecified; R90.82 White matter disease, unspecified; J32.2 Chronic ethmoidal sinusitis; J32.3 Chronic sphenoidal sinusitis
CPT/HCPCS: 70553; A9577

== ENCOUNTER → 2025-06-04 12:42 | Outpatient (BNVA) | payer MEDICARE, MEDICAID, SELFPAY | PROVIDERS: PCP Family Medicine; Visit Provider Anesthesiology Pain Medicine | DX: M47.812 Spondylosis without myelopathy or radiculopathy, cervical region (principal); M54.2 Cervicalgia; G89.29 Other chronic pain | CPT/HCPCS: 64633; 64634; 99212; J1100; J9999 ==

== ENCOUNTER → 2025-06-06 08:56 | Outpatient (BNVA) | payer MEDICARE, MEDICAID, SELFPAY | PROVIDERS: PCP Family Medicine; Visit Provider Podiatrist Foot & Ankle Surgery | DX: M72.2 Plantar fascial fibromatosis (principal); L60.8 Other nail disorders; M19.071 Primary osteoarthritis, right ankle and foot; M21.611 Bunion of right foot; M21.612 Bunion of left foot; M21.621 Bunionette of right foot; M21.622 Bunionette of left foot; M65.90 Unspecified synovitis and tenosynovitis, unspecified site | CPT/HCPCS: 20550; 99213; J1100; J3301; J3490 ==

== ENCOUNTER → 2025-06-11 10:22 | Outpatient (BNVA) | payer MEDICARE, MEDICAID, SELFPAY | PROVIDERS: PCP Family Medicine; Visit Provider Student in an Organized Health Care Education/Training Program | DX: M75.122 Complete rotator cuff tear or rupture of left shoulder, not specified as traumatic (principal); M19.012 Primary osteoarthritis, left shoulder | CPT/HCPCS: 99213 ==

== ENCOUNTER → 2025-06-18 12:40 | Outpatient (BNVA) | payer MEDICARE, MEDICAID, SELFPAY | PROVIDERS: PCP Family Medicine; Visit Provider Anesthesiology Pain Medicine | DX: M47.812 Spondylosis without myelopathy or radiculopathy, cervical region (principal) | CPT/HCPCS: 64633; 64634; J1100; J9999 ==

== ENCOUNTER → 2025-07-02 09:49 | Outpatient (BNVA) | payer MEDICARE, MEDICAID, SELFPAY | PROVIDERS: PCP Family Medicine; Visit Provider Anesthesiology Pain Medicine | DX: M54.2 Cervicalgia (principal); G89.29 Other chronic pain; I10 Essential (primary) hypertension; I50.22 Chronic systolic (congestive) heart failure; E66.01 Morbid (severe) obesity due to excess calories; Z68.42 Body mass index [BMI] 45.0-49.9, adult; M47.22 Other spondylosis with radiculopathy, cervical region; M19.90 Unspecified osteoarthritis, unspecified site; Z99.89 Dependence on other enabling machines and devices; Z98.84 Bariatric surgery status; M54.9 Dorsalgia, unspecified; M47.816 Spondylosis without myelopathy or radiculopathy, lumbar region | CPT/HCPCS: 99214 ==

== ENCOUNTER → 2025-07-22 13:02 | Outpatient (BNVA) | payer MEDICARE, MEDICAID, SELFPAY | PROVIDERS: PCP Family Medicine; Visit Provider Podiatrist Foot & Ankle Surgery | DX: M72.2 Plantar fascial fibromatosis (principal); L60.8 Other nail disorders; M19.071 Primary osteoarthritis, right ankle and foot; M21.611 Bunion of right foot; M21.612 Bunion of left foot; M21.621 Bunionette of right foot; M21.622 Bunionette of left foot; M65.871 Other synovitis and tenosynovitis, right ankle and foot | CPT/HCPCS: 99213 ==

== ENCOUNTER → 2025-07-29 10:47 | Outpatient (BNVA) | payer OTHER, MEDICAID, SELFPAY | PROVIDERS: PCP Family Medicine; Visit Provider Anesthesiology Pain Medicine | DX: M47.816 Spondylosis without myelopathy or radiculopathy, lumbar region (principal); M47.22 Other spondylosis with radiculopathy, cervical region; G89.29 Other chronic pain; E66.01 Morbid (severe) obesity due to excess calories; Z68.42 Body mass index [BMI] 45.0-49.9, adult | CPT/HCPCS: 99214 ==

== ENCOUNTER → 2025-08-14 13:56 | Outpatient (BNVA) | payer OTHER, MEDICAID, SELFPAY | PROVIDERS: PCP Family Medicine; Visit Provider Anesthesiology Pain Medicine | DX: M79.18 Myalgia, other site (principal); M47.816 Spondylosis without myelopathy or radiculopathy, lumbar region; M47.22 Other spondylosis with radiculopathy, cervical region; G89.29 Other chronic pain; I10 Essential (primary) hypertension; E66.01 Morbid (severe) obesity due to excess calories; Z68.42 Body mass index [BMI] 45.0-49.9, adult; M19.90 Unspecified osteoarthritis, unspecified site | CPT/HCPCS: 20553; 99214; J1010; J3490 ==

== ENCOUNTER → 2025-08-19 09:42 | Outpatient (BNVA) | payer MEDICAID, SELFPAY | PROVIDERS: PCP Family Medicine; Visit Provider Podiatrist Foot & Ankle Surgery | DX: L60.8 Other nail disorders (principal); M19.071 Primary osteoarthritis, right ankle and foot; M21.611 Bunion of right foot; M21.612 Bunion of left foot; M21.621 Bunionette of right foot; M21.622 Bunionette of left foot; M65.90 Unspecified synovitis and tenosynovitis, unspecified site; M72.2 Plantar fascial fibromatosis | CPT/HCPCS: 99213 ==

== ENCOUNTER → 2025-08-21 08:28 | Outpatient (BNVA) | payer MEDICAID, SELFPAY | PROVIDERS: PCP Family Medicine; Visit Provider Student in an Organized Health Care Education/Training Program | DX: M17.11 Unilateral primary osteoarthritis, right knee (principal) | CPT/HCPCS: 20610; 99213; J3301; J9999 ==

== ENCOUNTER → 2025-08-28 11:22 | Outpatient (BNVA) | payer MEDICARE, MEDICAID, SELFPAY | PROVIDERS: PCP Family Medicine; Visit Provider Nurse Practitioner | DX: J02.8 Acute pharyngitis due to other specified organisms (principal); B97.89 Other viral agents as the cause of diseases classified elsewhere | CPT/HCPCS: 87071; 87880 ==

== ENCOUNTER 2025-09-16 13:45 | Outpatient (CLI) | payer MEDICARE, MEDICAID, SELFPAY ==
--- NOTE | 2025-09-16 14:00 | XR_ITS ---
WS: [id number] SCREENING DEXA SCAN [facility] CLINICAL INFORMATION: postmenopausal COMPARISON: None. FINDINGS: The L1-L4 bone mineral density measures 1.171 g/cm2. This corresponds to a T score score of -0.1 and Z score of 0.5. Left femoral neck bone mineral density measures 0.910 g/cm2. This corresponds to a T score of -0.8 and Z score of 0.1. Right femoral neck bone mineral density measures 0.988 g/cm2. This corresponds to a T score -0.2of and Z score of 0.7. Mean femoral neck bone mineral density measures 0.949 g/cm2. This corresponds to a T score of -0.5 and Z score of 0.4. XR/XR DEXA axial skeleton* [id number] IMPRESSION: Normal bone mineralization. Patient's FRAX calculated 10 year probability for major osteoporotic fracture i s 8.8% and osteoporotic hip fracture is 1.5%.
== END 2025-09-16 13:46 | disposition home or self-care (01) ==
LOC: RAD 13:48
PROVIDERS: PCP Family Medicine; Visit Provider Family Medicine
DX: Z13.820 Encounter for screening for osteoporosis (principal); Z78.0 Asymptomatic menopausal state
CPT/HCPCS: 77080

== ENCOUNTER 2025-10-14 09:36 | Outpatient (RCR) | payer MEDICARE, MEDICAID, SELFPAY | END 2025-10-23 23:59 | disposition home or self-care (01) | LOC: SPT 09:36 | PROVIDERS: Visit Provider Family Medicine | DX: R26.89 Other abnormalities of gait and mobility (principal) | CPT/HCPCS: 97110; 97161 ==

== ENCOUNTER → 2025-10-21 10:49 | Outpatient (BNVA) | payer MEDICARE, MEDICAID, SELFPAY | PROVIDERS: PCP Family Medicine; Visit Provider Podiatrist Foot & Ankle Surgery | DX: L60.8 Other nail disorders (principal); M19.071 Primary osteoarthritis, right ankle and foot; M21.611 Bunion of right foot; M21.612 Bunion of left foot; M21.621 Bunionette of right foot; M21.622 Bunionette of left foot | CPT/HCPCS: 11750 ==